=== PATIENT | female | born 1940 | race Caucasian/White ===

== ENCOUNTER 2023-10-06 15:37 | Emergency (ER) | payer MEDICARE, BC, SELFPAY ==
[2023-10-06 15:39] VITALS: BP 148/61
[2023-10-06 15:53] LABS: % Eosinophils 2.6 % (0-6); % Immature Granulocytes 0.4 % (0-0.5); % Monocytes 8.8 % (1.7-9.3); % Neutrophils 66.2 % (42.2-75.2); Absolute Basophils 0.1 10^3/uL (0-0.2); Absolute Eosinophils 0.2 10^3/uL (0-0.7); Absolute Lymphocytes 1.5 10^3/uL (1.2-3.4); Absolute Monocytes 0.6 10^3/uL (0.1-0.6); Absolute Neutrophils 4.6 10^3/uL (1.4-6.5); Hematocrit 33.1 % (37.0-47.0); Mean Corp Hgb Conc. 33.2 g/dL (33.0-37.0); Mean Corpuscular Hgb 28.5 pg (27.0-31.0); Mean Corpuscular Volume 85.8 fL (81.0-99.0); Mean Platelet Volume 9.7 fL (7.4-10.4); Nucleated Red Blood Cells % 0 %; Platelet Count 267 10^3/uL (130-400); Red Blood Cell Count 3.86 10^6/uL (4.20-5.40); Red Cell Dist. Width 13.2 % (11.5-14.5)
[2023-10-06 16:10] LABS: ALT (SGPT) 16 U/L (0-35); AST (SGOT) 25 U/L (14-36); Albumin 3.9 g/dl (3.5-5.0); Alkaline Phosphatase 74 U/L (38-126); Blood Urea Nitrogen 63 mg/dl (7-17); Carbon Dioxide 25 mmol/L (22-30); Chloride 104 mmol/L (98-107); Glucose 133 mg/dl (70-99); Potassium 4.5 mmol/L (3.5-5.1); Sodium 137 mmol/L (135-145); Total Bilirubin 0.5 mg/dl (0.2-1.3); Total Protein 6.2 g/dl (6.3-8.2); eGFR 37.33
[2023-10-06 17:37] VITALS: BMI 41.5
--- NOTE | 2023-10-06 18:00 | ED.GENMED ---
History of Present Illness
General
Chief Complaint: Change in Mental Status
Source: day care assistant (Daughter)
Time Seen by Provider: 10/06/23 17:38
History of Present Illness
History of Present Illness:
83-year-old female brought to the emergency room for evaluation of increased lethargy, lower extremity edema and left leg redness. Patient has not had a fever. She does have dementia. Daughter states the patient normally gets up in the morning
and is going all day and never takes a nap. Over the past several days she has been falling asleep sitting in a chair. She seems little more confused than baseline. No significant change in medications.
Past History
Past History
ED Past Medical History: Negative Arrthythmia
ED Past Surgical History: Orthopedic (Right hip replacement)
Social History
Tobacco: Non-smoker
Alcohol: Occasional
Drug: None
Living: with family
Employment: Retired
Family History
Family History: Hypertension
Phy Exam
Physical Exam
Physical Exam:
General: Awake, Alert, Oriented X2. No acute distress.
Vitals: unremarkable
Head: Atraumatic
Eyes: Pupils equal, EOMI
Throat: Airway intact, no exudates
Neck: Trachea midline
Lungs: Clear and equal b/l
Heart: Regular rate, no murmurs
Abd: Soft, Nontender, No pulsatile mass
Neuro: Nonfocal
Skin: Warm, dry, no rash
Extremities: pulses equal b/l, no edema
Course
Orders/Labs/Results
Orders:
Orders
10/06/23 15:48
CMP [Comprehensive Metabolic Panel] Urgent
Complete Blood Count/With Diff Urgent
10/06/23 17:58
CT Head W/o Iv Contrast Urgent
Comment:
Reason For Exam: altered mental status
CR Chest - 2 Views Urgent
Comment:
Reason For Exam: altered mental status
10/06/23 18:00
Add On- LAB Urgent
Tests Added?: pro-bnp, troponin
10/06/23 18:27
NT-proBNP Urgent
Troponin I Urgent
Urinalysis Reflex To Culture Urgent
Date Specimen was Collected: 10/06/23
Time Specimen was Collected: 18:24
10/06/23 19:30
Cephalexin Monohydrate [Keflex] 500 mg PO NOW STA
Abnormal Lab Results
10/06/23
15:48
RBC 3.86 L 10^6/uL
(4.20-5.40)
Hgb 11.0 L g/dL
(12.0-16.0)
Hct 33.1 L %
(37.0-47.0)
BUN 63 H mg/dl
(7-17)
Creatinine 1.4 H mg/dL
(0.6-1.0)
Glucose 133 H mg/dl
(70-99)
Total Protein 6.2 L g/dl
(6.3-8.2)
10/06/23 15:48
10/06/23 15:48
Vital Signs
Initial and Last Documented VS:
Initial Vital Signs
Temp Pulse Resp BP Pulse Ox
99.0 F 75 18 148/61 97
10/06/23 15:39 10/06/23 15:39 10/06/23 15:39 10/06/23 15:39 10/06/23 15:39
Last Documented Vital Signs
Temp Pulse Resp BP Pulse Ox
99.0 F 75 18 148/61 97
10/06/23 15:39 10/06/23 15:39 10/06/23 15:39 10/06/23 15:39 10/06/23 15:39
MDM/Problems Addressed
Differential Diagnosis Includes:
Cellulitis, urinary tract infection, subdural, medication effect
MDM/Problems Addressed:
Patient has increased lethargy per family. Here she is currently awake and interactive. Neurologic exam is nonfocal. CT shows no acute abnormalities. Labs show mild elevation of BUN and creatinine. Daughter does not know the exact numbers but
does know she has had abnormal kidney test in the past. Urinalysis totally normal. Chest x-ray shows no acute infiltrates. Overall patient may have a mild cellulitis of the left lower extremity. She does have significant venous stasis however so
this may be chronic. However we will cover with antibiotics. Given she is afebrile and hemodynamically stable I do not believe hospitalization is in her best interest for treatment with dementia as she is likely to become more confused. Family
comfortable with this plan. They will return if she is doing worse
Chronic conditions affecting care: DM and Other (Dementia, chronic venous stasis)
*Radiology
Radiology exam reviewed: radiology read reviewed
*Pulse Oximetry
Patient hypoxic: no
*Critical Care Note
Total Time (30-74mins, 75-104mins- exclusive of procedures): Not Applicable
Patient Management
Social determinants of health affecting care: Living situation
Discussion with other providers: Hospitalist
ED Attending Note
-
Portions of this chart may have been created with voice recognition software.� Occasional wrong word or��sound alike� substitutions may have occurred due to the inherent limitations of voice recognition software.
Discharge Plan
Departure
Patient Disposition: Home (Routine Discharge)
Date of Disposition: 10/06/23
Time of Disposition: 19:30
Patient with high blood pressure during this ER visit?: Yes
Condition: Good
Discharge Problem:
Cellulitis of left lower extremity, Venous stasis
Instructions: Swelling, Cellulitis (Skin Infection), Adult ED
Prescriptions:
New
cephalexin 500 mg capsule
500 mg PO BID 7 Days Qty: 14 0RF
No Action
carvedilol 6.25 MG tablet
12.5 mg PO DAILY
glipizide 10 MG tablet extended release 24hr
10 mg PO BID
lisinopril 40 MG tablet
40 mg PO DAILY
carvedilol 6.25 mg tablet
6.25 mg PO QPM
amlodipine 5 mg tablet
5 mg PO HS
acetaminophen 500 mg Tablet
1,000 mg PO Q6H PRN (Reason: mild pain)
naproxen sodium [Aleve] 220 mg Tablet
220 mg PO Q12H PRN (Reason: mild pain)
omeprazole 20 mg capsule,delayed release(DR/EC)
20 mg PO HS
hydrochlorothiazide 25 mg tablet
25 mg PO DAILY
furosemide 20 mg tablet
20 mg PO MOTH
Januvia 50 mg tablet
50 mg PO DAILY
Curcumin
1 tab PO BID
Referrals:
UNKNOWN - PT DOES,NOT KNOW [Unknown Provider] -
Activity Restrictions/Additional Instructions:
I believe there is a mild cellulitis in the left leg. This will be treated with an oral antibiotic, Keflex, for one week. Also use beatriz wraps to provide some compression. I would also give her the lasix for two or three days in a row then return
to normal dosing.
Interventions
Interventions:
*Risk Screen - Suicide Last Done: 10/06/23 17:38
*General Assessment Last Done: 10/06/23 17:38
*Neglect/Abuse Screening Last Done: 10/06/23 17:38
ED- Fall Risk Assessment Last Done: 10/06/23 18:32
*ED COVID-19 Vaccine History Last Done: 10/06/23 17:38
*Nursing Disposition Last Done: 10/06/23 20:06
ED- Neurological Assessment Last Done: 10/06/23 18:32
ED- Cardiac Assessment Last Done: 10/06/23 18:55
Discharge Date and Time
Discharge Date/Time: 10/06/23 20:06
Print Language: ESTONIAN
[2023-10-06 18:40] LABS: Urine Albumin Negative (Neg - Trace); Urine Bilirubin Negative (Negative); Urine Character Clear (Clear); Urine Color Yellow; Urine Glucose Negative (Negative); Urine Ketone Negative (Negative); Urine Leukocyte Negative (Negative); Urine Nitrite Negative (Negative); Urine Occult Blood Negative (Negative); Urine Urobilinogen Negative (Neg - 1+)
[2023-10-06 19:01] LABS: NT-proBNP 119 pg/ml; Troponin I < 0.012 ng/ml
[2023-10-06] MEDS: KEFLEX 500 MG PO (19:38)
== END 2023-10-06 20:06 | disposition home or self-care (01) ==
LOC: EMR 15:37
PROVIDERS: Emergency Medicine; EMERGENCY PHYSICIAN Emergency Medicine; FAMILY PHYSICIAN Internal Medicine Geriatric Medicine
DX: L03.116 Cellulitis of left lower limb (principal); R41.0 Disorientation, unspecified; R53.83 Other fatigue; I87.8 Other specified disorders of veins; R03.0 Elevated blood-pressure reading, without diagnosis of hypertension; F03.90 Unspecified dementia, unspecified severity, without behavioral disturbance, psychotic disturbance, mood disturbance, and anxiety; E11.9 Type 2 diabetes mellitus without complications; Z96.641 Presence of right artificial hip joint
CPT/HCPCS: 99284; 70450; 71046; 80053; 81003; 83880; 84484; 85025

== ENCOUNTER 2023-10-08 03:38 | Inpatient (IN) | payer MEDICARE, BC, SELFPAY ==
[2023-10-07 21:35] VITALS: BP 184/88
[2023-10-07 23:52] VITALS: BP 167/82
[2023-10-08] VITALS (9 sets, daily range): BP systolic 122–171; BP diastolic 49–74; PULSE 65–66; O2SAT 95; BMI 40.2
--- NOTE | 2023-10-08 00:57 | ED.GENMED ---
History of Present Illness
General
Chief Complaint: Skin Problem
Source: family (Grandson)
Exam Limitations: dementia
Time Seen by Provider: 10/07/23 23:51
History of Present Illness
History of Present Illness:
This is a 83 year old female that comes in with c/o increased leg swelling and redness. Grandson states that they were here yesterday as she has swelling of both lower legs. States that she was given Lasix and an antibiotic but this is not helping.
states that her legs are more swollen and the redness is worse. State that she also has a large blister that was not there. States that this has been going on since . Denies any fever, chest pain, SOB, abd pain, nausea, vomiting, diarrhea,
headache, dizziness.
Past History
Past History
ED Past Medical History: HTN, IDDM and Other (Dementia, ); Negative Arrthythmia
ED Past Surgical History: Cholecystectomy, (X 3), Orthopedic (Right and left hip replacement, Left and right knee replacement,) and Tonsilectomy
Social History
Tobacco: Non-smoker
Alcohol: None
Drug: None
Personal:
Living: with family
Employment: Retired
Family History
Family History: Hypertension
Review of Systems
Review of Systems
Unable to obtain full review of systems at this time due to: dementia
Other source history: family
All Other Systems: ROS reviewed and negative except as documented in HPI and ROS
Constitutional: Reports no symptoms; Denies fever or chills
EENT: Reports no symptoms
Respiratory: Reports no symptoms; Denies cough or trouble breathing
Cardiac: Reports no symptoms; Denies chest pain
ABD/GI: Reports no symptoms; Denies abdominal pain, nausea, vomiting or diarrhea
: Reports no symptoms
Musculoskeletal: Reports edema (lower legs with redness )
Skin: Reports no symptoms
Neurological: Reports no symptoms; Denies dizzy or headache
Psychiatric: Reports no symptoms
Phy Exam
General Physical Exam
General Presentation: no apparent distress
General age: appears stated age
General Skin: warm and dry
General Habitus: elderly
General Mental: usual mental status
General Hydration: appears well hydrated
ENT Exam
ENT Exam: TM's normal, pharynx normal and neck supple
Eye Exam
Eye Exam: EOMI
Cardiovascular Exam
Cardiovascular Exam: regular rate/rhythm and normal peripheral pulses
Pulmonary Exam
Pulmonary Exam: lungs clear, no respiratory distress, no rales, chest non tender, no crackles, no rhonchi, no wheezing and no cough
Gastrointestinal Exam
Gastrointestinal Exam: normal bowel sounds, non tender, soft, no organomegaly, no pulsatile mass and non distended
Musculoskeletal Exam
Musculoskeletal Exam: full ROM and edema (Bilateral leg edema )
Skin Exam
Skin Exam: normal color, warm/dry, no petechia and redness (Bilateral leg edema with redness L>R with large blistered area on the proximal left lower leg)
Psychiatric Exam
Psychiatric Exam: normal mood/affect
Course
Orders/Labs/Results
Orders:
Orders
10/08/23 01:09
Piperacillin/Tazo 3.375 Gram [Zosyn] 3.375 gram in 50 ml IV NOW
10/08/23 01:12
Complete Blood Count/With Diff Urgent
Comprehensive Metabolic Panel Urgent
Lactic Acid Urgent
Blood Culture Q30M
BALDEV Source: Blood/Venous
Specimen Description:
10/08/23 01:22
Blood Culture Q30M
BALDEV Source: Blood/Venous
Specimen Description:
10/08/23 02:10
US Legs, Bilateral [US Periph Venous LOWER Ext Josué] Urgent
Comment:
Reason For Exam: b/l LE redness and swelling, new
10/08/23 02:32
Admit/Transfer Patient As Directed
Co-Sign Provider:
Level of Care: Inpatient admission
Assign to:: Medical/Surgical
Physician / Group: Baylee Quezada
Diagnosis: cellulitis
Reason for Hospitalization: cellulitis
Expected length of stay greater than two midnights?: Yes
ELOS- Estimated Length of Stay in days: 2
I certify the patient meets the requirements for IP care: Yes
10/08/23 02:33
Code Status As Directed
Resuscitation Status: Full Code
Abnormal Lab Results
10/08/23
01:12
RBC 3.72 L 10^6/uL
(4.20-5.40)
Hgb 10.7 L g/dL
(12.0-16.0)
Hct 31.6 L %
(37.0-47.0)
BUN 48 H mg/dl
(7-17)
Creatinine 1.2 H mg/dL
(0.6-1.0)
Glucose 116 H mg/dl
(70-99)
Total Protein 6.1 L g/dl
(6.3-8.2)
10/08/23 01:12
10/08/23 01:12
H/H low. BUN/Cr improved from prior labs, Chronic renal insufficience, Glucose nonfasting. Total protein slightly low. Lactic acid normal at 0.7
Vital Signs
Initial and Last Documented VS:
Initial Vital Signs
Temp Pulse Resp BP Pulse Ox
98.6 F 85 16 184/88 96
10/07/23 21:35 10/07/23 21:35 10/07/23 21:35 10/07/23 21:35 10/07/23 21:35
Last Documented Vital Signs
Temp Pulse Resp BP Pulse Ox
98.6 F 81 18 148/51 96
10/07/23 21:35 10/07/23 23:52 10/07/23 23:52 10/08/23 01:24 10/07/23 23:52
MDM/Problems Addressed
Differential Diagnosis Includes:
Cellulitis, Dependent edema
MDM/Problems Addressed:
This is a 83 year old female that is brought in by family with c/o bilateral leg swelling and redness. States that she as here yesterday and they feel that her legs are getting worse. States that she has a large blister on the left leg.
Will check labs and admit patient with cellulitis. Hospitalist notified. Back into see patient and family. Explained that she will be admitted and started on antibiotics. Will also diureses patient to decrease the swelling.
Chronic conditions affecting care: DM
Acute Exacerbation and/or Progression of Chronic Illness: DM
*Pulse Oximetry
Patient hypoxic: no
*EKG
Interpreted by ED Provider?: NA
Rate: EKG- N/A
*Relish Blender Interpretation
Rate: Relish Blender- N/A
*Critical Care Note
Total Time (30-74mins, 75-104mins- exclusive of procedures): Not Applicable
ED Attending Note
-
Portions of this chart may have been created with voice recognition software.� Occasional wrong word or��sound alike� substitutions may have occurred due to the inherent limitations of voice recognition software.
Discharge Plan
Departure
Patient Disposition: Admit
Date of Disposition: 10/08/23
Time of Disposition: 01:10
Admit to: Med/Surg
Presentation/result/management discussed w/ accepting MD/DO: Hospitalist
Patient with high blood pressure during this ER visit?: Yes
Condition: Good
Covid-19: Not Applicable
Discharge Problem:
Bilateral edema of lower extremity, Cellulitis of left lower extremity
Prescriptions:
No Action
carvedilol 6.25 MG tablet
12.5 mg PO DAILY
glipizide 10 MG tablet extended release 24hr
10 mg PO BID
lisinopril 40 MG tablet
40 mg PO DAILY
carvedilol 6.25 mg tablet
6.25 mg PO QPM
amlodipine 5 mg tablet
5 mg PO HS
acetaminophen 500 mg Tablet
1,000 mg PO Q6H PRN (Reason: mild pain)
naproxen sodium [Aleve] 220 mg Tablet
220 mg PO Q12H PRN (Reason: mild pain)
omeprazole 20 mg capsule,delayed release(DR/EC)
20 mg PO HS
hydrochlorothiazide 25 mg tablet
25 mg PO DAILY
furosemide 20 mg tablet
20 mg PO MOTH
Januvia 50 mg tablet
50 mg PO DAILY
Curcumin
1 tab PO BID
cephalexin 500 mg capsule
500 mg PO BID 7 Days Qty: 14 0RF
Referrals:
UNKNOWN - PT DOES,NOT KNOW [Family Provider] -
Interventions
Interventions:
*Risk Screen - Suicide Last Done: 10/07/23 21:35
*General Assessment Last Done: 10/08/23 01:45
*Neglect/Abuse Screening Last Done: 10/07/23 21:35
*ED COVID-19 Vaccine History Last Done: 10/08/23 01:45
ED-Skin Assessment Last Done: 10/08/23 00:37
Discharge Date and Time
Print Language: BELARUSIAN
[2023-10-08 01:37] LABS: % Eosinophils 2.9 % (0-6); % Immature Granulocytes 0.4 % (0-0.5); % Monocytes 7.9 % (1.7-9.3); % Neutrophils 66.8 % (42.2-75.2); Absolute Basophils 0.1 10^3/uL (0-0.2); Absolute Eosinophils 0.2 10^3/uL (0-0.7); Absolute Lymphocytes 1.4 10^3/uL (1.2-3.4); Absolute Monocytes 0.5 10^3/uL (0.1-0.6); Absolute Neutrophils 4.6 10^3/uL (1.4-6.5); Hematocrit 31.6 % (37.0-47.0); Hemoglobin 10.7 g/dL (12.0-16.0); Mean Corp Hgb Conc. 33.9 g/dL (33.0-37.0); Mean Corpuscular Hgb 28.8 pg (27.0-31.0); Mean Corpuscular Volume 84.9 fL (81.0-99.0); Mean Platelet Volume 9.6 fL (7.4-10.4); Nucleated Red Blood Cells % 0 %; Platelet Count 255 10^3/uL (130-400); Red Blood Cell Count 3.72 10^6/uL (4.20-5.40); White Blood Cell Count 6.9 10^3/uL (4.8-10.8)
[2023-10-08] MEDS: ZOSYN 50 IV (01:41)
[2023-10-08 01:55] LABS: ALT (SGPT) 20 U/L (0-35); AST (SGOT) 25 U/L (14-36); Albumin 3.7 g/dl (3.5-5.0); Alkaline Phosphatase 78 U/L (38-126); Blood Urea Nitrogen 48 mg/dl (7-17); Calcium 9.9 mg/dl (8.4-10.2); Carbon Dioxide 28 mmol/L (22-30); Chloride 103 mmol/L (98-107); Glucose 116 mg/dl (70-99); Lactic Acid 0.7 mmol/L (0.7-2.0); Potassium 4.1 mmol/L (3.5-5.1); Sodium 138 mmol/L (135-145); Total Bilirubin 0.6 mg/dl (0.2-1.3); Total Protein 6.1 g/dl (6.3-8.2); eGFR 44.91
--- NOTE | 2023-10-08 01:58 | HPS.HSE ---
Family Physician
-
Family Physician: NOT KNOW UNKNOWN - PT DOES
Chief Complaint
-
leg swelling and redness
History of Present Illness
Ms. Holly Villarreal is a 83 yo woman with hx dementia, essential HTN, NIDDM, ER evaluation yesterday for lower extremity swelling and redness (discharged on Keflex) brought back to the ER today with worsening.
Patient confused and unable to provide history, stating she is at school. I called grandson. He reports patient's legs are always mildly swollen but not to this extent. His mother brought patient to ER yesterday. Him and his dad noticed
worsening today and so brought her back. The erythema and blister are new.
Patient denies pain. Denies chest pain or shortness of breath. She has not had fevers. She is chronically on lasix only on Mondays and .
Medical History
Past Medical History
Past Medical History: Reports HTN and NIDDM
Past Surgical History: Reports Cholecystectomy, Gynocological ( x 3), Orthopedic (right and left hip replacement, right and left knee replacement ) and Tonsilectomy
Social History
Tobacco: Non-smoker
Alcohol: None
Family History
Family History: Not pertinent
Allergies / Home Medications
Allergies reflects when Allergies were last updated in [facility].
Home Medications with original date entered in [facility]
Allergy/Medication List:
Allergies
Allergy/AdvReac Type Severity Reaction Status Date / Time
Opioids - Morphine Analogues Allergy Mild Nausea / Verified 10/07/23 21:35
Vomiting
Home Medications
carvedilol 6.25 mg tablet 12.5 mg PO DAILY 07/22/19
glipizide 10 mg tablet, extended release 24 hr 10 mg PO BID 07/22/19
lisinopril 40 mg tablet 40 mg PO DAILY 07/22/19
Curcumin 1 tab PO BID 10/06/23
acetaminophen 500 mg tablet 1,000 mg PO Q6H PRN mild pain 10/06/23
amlodipine 5 mg tablet 5 mg PO HS 10/06/23
carvedilol 6.25 mg tablet 6.25 mg PO QPM 10/06/23
cephalexin 500 mg capsule 500 mg PO BID 7 days #14 caps 10/06/23
furosemide 20 mg tablet 20 mg PO MOTH 10/06/23
hydrochlorothiazide 25 mg tablet 25 mg PO DAILY 10/06/23
naproxen sodium 220 mg tablet (Aleve) 220 mg PO Q12H PRN mild pain 10/06/23
omeprazole 20 mg capsule,delayed release 20 mg PO HS 10/06/23
sitagliptin phosphate 50 mg tablet (Januvia) 50 mg PO DAILY 10/06/23
Review of Systems
-
Unable to obtain full review of systems at this time due to: Dementia
Physical Exam
Vital Signs
Vital Signs
Temp Pulse Resp BP Pulse Ox
98.6 F 81 18 148/51 96
10/07/23 21:35 10/07/23 23:52 10/07/23 23:52 10/08/23 01:24 10/07/23 23:52
Physical Exam
General: No Apparent Distress and Comfortable
HEENT: PERRLA
Respiratory: Clear; No Wheezes
Cardiac: S1/S2 and Regular Rhythm
GI: Soft and Non Tender
Musculoskeletal: Other (b/l LE swelling and redness with left > right )
Skin: Warm, Dry and Rash (skin blister left lower extremity )
Neuro: Awake and Alert; No Oriented
Psych: Apparent Dementia
Laboratory Results
-
10/08/23 01:12
10/08/23 01:12
Laboratory Results
Lactic Acid 0.7 mmol/L (0.7-2.0) 10/08/23 01:12
Total Bilirubin 0.6 mg/dl (0.2-1.3) 10/08/23 01:12
AST 25 U/L (14-36) 10/08/23 01:12
ALT 20 U/L (0-35) 10/08/23 01:12
Alkaline Phosphatase 78 U/L (38-126) 10/08/23 01:12
Data Reviewed
-
Diagnostic Radiology: Report Reviewed by me
Lab Data: Labs Reviewed by me
Impression/Plan
-
Ms. Holly Villarreal is a 83 yo woman with hx dementia, essential HTN, NIDDM, ER evaluation yesterday for lower extremity swelling and redness (discharged on Keflex) brought back to the ER today with worsening.
Triage VS: T 98.6, P 85, RR 16, BP 184/88, SpO2 96%
LABS: WBC 6.9, Hg 10.7, PLT 255, Na 138, K+ 4.1, CO2 28, BUN 48, Cr 1.2, liver enzymes WNL,
B/l lower extremity cellulitis L>R
-patient did not improve on oral Keflex (prescribed day prior to admission), will admit for IV therapy
-IV Cefazolin (s/p Zosyn in ER)
-F/U LE B/l US
-increase [employer] lasix from MOTH to daily dosing
-PT/OT
NIDDM
-patient is on Glipizide 10mg PO BID and Januvia 50mg PO QD at home
-continue [employer] Januvia
-decrease Glipizide dosing to 2.5mg PO QD for now and adjust as needed
-ISS low
-F/U HgA1c
-diabetic diet
Essential Hypertension
-hold [employer] HCTZ with increase in lasix dosing to daily
-[employer] Lisinopril
-S[employer] amlodipine
-SAP [employer] Coreg
Baseline Dementia
COLTON versus CKD III
-creatinine 1.2, was 1.4 yesterday
GERD
-S[employer] PPI
DVT PPx lovenox subQ
FULL CODE - discussed with grandson who will have further discussion with his mother (patient's daughter)
--- NOTE | 2023-10-08 04:37 | PTCARENOTE ---
pt arrived from ed, pulled over, pt only oriented to self, bed alarm for safety, VSS. see MAR and assessment for further details. call lao within reach.
[2023-10-08 07:17] LABS: Blood Urea Nitrogen 47 mg/dl (7-17); Calcium 9.9 mg/dl (8.4-10.2); Carbon Dioxide 29 mmol/L (22-30); Chloride 104 mmol/L (98-107); Estimated Creatinine Clearance 44 ml/min; Glucose 85 mg/dl (70-99); Magnesium 1.7 mg/dl (1.6-2.3); Potassium 4.1 mmol/L (3.5-5.1); Sodium 140 mmol/L (135-145); eGFR 44.91
[2023-10-08 07:43] LABS: Glucose - Point of Care 101 mg/dl (70-99)
[2023-10-08] MEDS: NOVOLOG FLEXPEN-LOW RESISTANCE SC ×2 (08:04→16:58)
[2023-10-08] MEDS: GLUCOTROL XL (EXTENDED RELEASE) 2.5 MG PO (08:07)
[2023-10-08] MEDS: ZESTRIL 40 MG PO (08:07)
[2023-10-08] MEDS: JANUVIA 50 MG PO (08:07)
[2023-10-08] MEDS: LASIX 20 MG PO (08:08)
[2023-10-08] MEDS: COREG 12.5 MG PO (08:08)
[2023-10-08] MEDS: ANCEF 5 IV ×3 (08:09→23:29)
[2023-10-08] MEDS: DESENEX/MITRAZOL/ZEASORB 1 APPLIC TOPICAL ×2 (08:11→21:19)
[2023-10-08 08:52] LABS: Glycohemoglobin (HgbA1c) 6.9 % (4.0-5.6)
--- NOTE | 2023-10-08 10:16 | W.PN.HOSP.TC ---
Today's Communication/Plan
-
IV antibiotics per
Wound care.
Monitor blood pressure trend on current medication regimen.
Follow BMP on increased dose of Lasix.
Hold HCTZ
Physical therapy assessment.
Discharge planing
Assessment / Plan
Assessment / Plan
Impression:
Bilateral lower extremity cellulitis left greater than right.
? COLTON versus CKD
Conditions prior to admission:
Type 2 diabetes [id number]
Essential hypertension
CKD?
GERD
Dementia without behavioral disturbances.
Plan
B/l lower extremity cellulitis L>R
Complicated with stasis dermatitis
Left lower extremity blister clear serosanguineous fluid
No systemic symptoms
-patient did not improve on oral Keflex (prescribed day prior to admission), will admit for IV therapy
-IV Cefazolin (s/p Zosyn in ER)
-Wound care
-F/U LE B/l US
-increase [employer] lasix from MOTH to daily dosing
-PT/OT
NIDDM
-patient is on Glipizide 10mg PO BID and Januvia 50mg PO QD at home
-continue [employer] Januvia
-decrease Glipizide dosing to 2.5mg PO QD for now and adjust as needed
-ISS low
-Hemoglobin A1c 6.9
-diabetic diet
Essential Hypertension
-hold [employer] HCTZ with increase in lasix dosing to daily
-[employer] Lisinopril
-[employer] amlodipine
-[employer] Coreg
Baseline Dementia
COLTON versus CKD III
-creatinine 1.2, was 1.4 yesterday
GERD
-[employer] PPI
DVT PPx lovenox subQ
FULL CODE - discussed with grandson who will have further discussion with his mother (patient's daughter)
Anticipated Discharge: 24 - 48 hours
Subjective/Interval History
-
Date of Service: October 08, 2023
Objective Data
-
Labs:
Laboratory Results
10/08/23 10/08/23
01:12 06:29
WBC 6.9
Hgb 10.7 L
Hct 31.6 L
Plt Count 255
Sodium 138 140
Potassium 4.1 4.1
Chloride 103 104
Carbon Dioxide 28 29
BUN 48 H 47 H
Creatinine 1.2 H 1.2 H
Glucose 116 H 85
Calcium 9.9 9.9
Total Bilirubin 0.6
AST 25
ALT 20
Alkaline Phosphatase 78
Vital Signs:
Vital Signs
Temp Pulse Resp BP Pulse Ox
98 F 82 16 171/74 99
10/08/23 07:28 10/08/23 07:28 10/08/23 07:28 10/08/23 07:28 10/08/23 07:28
Physical Exam
-
General: Well Developed and No Apparent Distress
HEENT: Normocephalic, Atraumatic and Moist Mucous Membranes
Respiratory: Clear to Auscultation
Cardiac: Regular Rhythm and S1/S2; Negative Murmur, Rub or Gallop
GI: Soft, Nontender, Nondistended and Normal Bowel Sounds; Negative Organomegaly
Rectal: Deferred by Provider
Musculoskeletal: No Clubbing, No Cyanosis and No Edema
Skin: Negative Rash
Neuro: Awake, Alert, Oriented and Nonfocal/Grossly Intact
[2023-10-08 12:15] LABS: Glucose - Point of Care 231 mg/dl (70-99)
[2023-10-08] MEDS: NOVOLOG FLEXPEN-LOW RESISTANCE 2 UNITS SC (12:36)
--- NOTE | 2023-10-08 13:27 | WOUNDNOTE ---
[facility] RN note: Patient admitted with bilateral LE cellulitis
See H&P for complete history.
PMH: Type 2 DM, HTN, GERD, Demenita. Pleasant, oriented to self only.
Wound Location and type/assessment: Patient admitted with blisters to left LE. +2-3 edema bilaterally, with faint pedal pulses. Bilateral legs are red with venous stasis changes. Buttocks, sacrum and heels intact. Some MASD noted around groin.
Pressure redistribution devices in place: Versa Care Air, air cushion to chair
Plan: Protect blisters and surrounding skin if blisters open. Adaptic and ABD applied to blistered areas. Compression with CHETAN applied bilaterally. RN updated, orders confirmed with hospitalist. Discharge and care plan updated. Will continue to
follow as needed.
[2023-10-08 16:41] LABS: Glucose - Point of Care 142 mg/dl (70-99)
--- NOTE | 2023-10-08 16:43 | CM ---
Initial assessment completed with patient's daughter/primary contact, Rosangela Wood (she is currently out of town)
Patient's other daughter, Diamond Escamilla, phone # [phone]; also has Power of Cardiac Cath Lab Radiology Technologist. She will be available if unable to reach Rosangela Wood
Patient has Dementia
Pharmacy verified: [facility], [address]
Per daughter, patient lives with her/son-in-law/grandson/ and 's 102 yr old father in a 2 story home; 2 steps to enter; 13 steps to patient's 2nd floor bathroom and bedroom
PLOF: daughter reported that patient has a caregiver every day from 9-3 Thursday thru Thursday; is able to dress and toilet self; incontinent sometimes. Patient refuses to use a walker with ambulation; refuses to hold on to railing on stairs; daughter
reported that she crawls up the stairs; family/caregiver only able to get her in the shower once a week (patient does not like shower); no longer driving
SNF utilization history; not recent; [facility]
DME: has a glucometer but daughter does not check blood sugars; and a walker but patient refuse to use it
Transportation: son-in-law and grandson will transport if she patient is stable to go home
Plan: disposition pending PT/OT recommendations after they speak with patient's daughter about home environment
[2023-10-08] MEDS: COREG 6.25 MG PO (17:51)
[2023-10-08] MEDS: LOVENOX 40 MG SC (17:52)
[2023-10-08] MEDS: NORVASC 5 MG PO (21:18)
[2023-10-08 21:19] LABS: Glucose - Point of Care 206 mg/dl (70-99)
[2023-10-08] MEDS: PROTONIX 40 MG PO (21:19)
[2023-10-09 06:00] VITALS: BMI 40.2
[2023-10-09 07:03] LABS: % Immature Granulocytes 0.5 % (0-0.5); % Lymphocytes 28.8 % (20.5-51.1); % Monocytes 11.7 % (1.7-9.3); Absolute Basophils 0.1 10^3/uL (0-0.2); Absolute Eosinophils 0.2 10^3/uL (0-0.7); Absolute Lymphocytes 1.7 10^3/uL (1.2-3.4); Absolute Monocytes 0.7 10^3/uL (0.1-0.6); Absolute Neutrophils 3.2 10^3/uL (1.4-6.5); Hematocrit 32.7 % (37.0-47.0); Hemoglobin 10.7 g/dL (12.0-16.0); Mean Corp Hgb Conc. 32.7 g/dL (33.0-37.0); Mean Corpuscular Volume 88.6 fL (81.0-99.0); Mean Platelet Volume 10.1 fL (7.4-10.4); Nucleated Red Blood Cells % 0 %; Platelet Count 244 10^3/uL (130-400); Red Blood Cell Count 3.69 10^6/uL (4.20-5.40); Red Cell Dist. Width 13.1 % (11.5-14.5)
[2023-10-09 07:33] LABS: Blood Urea Nitrogen 39 mg/dl (7-17); Calcium 9.7 mg/dl (8.4-10.2); Carbon Dioxide 31 mmol/L (22-30); Chloride 103 mmol/L (98-107); Estimated Creatinine Clearance 48 ml/min; Glucose 122 mg/dl (70-99); Potassium 4.5 mmol/L (3.5-5.1); Sodium 139 mmol/L (135-145); eGFR 49.86
[2023-10-09 07:43] LABS: Glucose - Point of Care 125 mg/dl (70-99)
[2023-10-09 07:45] VITALS: BP 141/58
[2023-10-09] MEDS: NOVOLOG FLEXPEN-LOW RESISTANCE SC (08:41)
[2023-10-09] MEDS: JANUVIA 50 MG PO (08:42)
[2023-10-09] MEDS: GLUCOTROL XL (EXTENDED RELEASE) 2.5 MG PO (08:42)
[2023-10-09] MEDS: ZESTRIL 40 MG PO (08:43)
[2023-10-09] MEDS: LASIX 20 MG PO (08:43)
[2023-10-09] MEDS: ANCEF 5 IV ×2 (08:43→15:17)
[2023-10-09] MEDS: COREG 12.5 MG PO (08:43)
[2023-10-09] MEDS: DESENEX/MITRAZOL/ZEASORB 1 APPLIC TOPICAL (08:53)
[2023-10-09 12:33] LABS: Glucose - Point of Care 264 mg/dl (70-99)
[2023-10-09] MEDS: NOVOLOG FLEXPEN-LOW RESISTANCE 3 UNITS SC (12:35)
--- NOTE | 2023-10-09 13:30 | W.DS.TRANS ---
DC Summary - [employer]
-
Discharge Instructions:
Discharge Diagnosis/Procedures Impression:
Bilateral lower extremity cellulitis left
greater than right.
? COLTON versus CKD
Conditions prior to admission:
Type 2 diabetes [id number]
Essential hypertension
CKD?
GERD
Dementia without behavioral disturbances.
Diet Diabetic, Carb Controlled
Instructions:
Stand-Alone Forms:
Changes to Home Medications: Yes
Discharge Medications:
DC Medications w/original date entered in [facility]
carvedilol 6.25 mg tablet 12.5 mg PO DAILY Heart Disease/Condition 07/22/19
glipizide 10 mg tablet, extended release 24 hr 10 mg PO BID Diabetes 07/22/19
lisinopril 40 mg tablet 40 mg PO DAILY Blood Pressure 07/22/19
Curcumin 1 tab PO BID Supplement 10/06/23
acetaminophen 500 mg tablet 1,000 mg PO Q6H PRN mild pain 10/06/23
amlodipine 5 mg tablet 5 mg PO HS Blood Pressure 10/06/23
carvedilol 6.25 mg tablet 6.25 mg PO QPM Heart Disease/Condition 10/06/23
furosemide 20 mg tablet 20 mg PO MOTH Fluid Retention/Swelling 10/06/23
omeprazole 20 mg capsule,delayed release 20 mg PO HS Gastrointestinal Issue 10/06/23
sitagliptin phosphate 50 mg tablet (Januvia) 50 mg PO DAILY Diabetes 10/06/23
cephalexin 500 mg capsule 500 mg PO BID Infection 10/09/23
Home Medication Changes
Stop HCTZ, Aleve
Pending Results: No
--- NOTE | 2023-10-09 15:13 | CM ---
Reviewed chart, RN advised that grandson wanted to speak with CM. Placed a call to patient's Grandson who stated that he has no concerns. Reviewed IMM. Placed on chart. Patient's Grandson stated that he will have his aunt pick her up.
Plan: Case management will continue to follow and assist with discharge planning. Home with cg.
[2023-10-09 15:24] VITALS: BP 167/66
[2023-10-09 17:21] LABS: Glucose - Point of Care 159 mg/dl (70-99)
[2023-10-09] MEDS: LOVENOX 40 MG SC (17:32)
[2023-10-09] MEDS: NOVOLOG FLEXPEN-LOW RESISTANCE 300 UNITS SC (17:33)
[2023-10-09] MEDS: COREG 6.25 MG PO (17:33)
== END 2023-10-09 18:21 | disposition home or self-care (01) | DRG 603 ==
LOC: 3 WEST ACU 03:38
PROVIDERS: Clinical Nurse Specialist Family Health; ADMITTING PHYSICIAN Student in an Organized Health Care Education/Training Program; ATTENDING PHYSICIAN Internal Medicine; EMERGENCY PHYSICIAN Emergency Medicine
DX: L03.116 Cellulitis of left lower limb (principal); N17.9 Acute kidney failure, unspecified; L03.115 Cellulitis of right lower limb; E86.0 Dehydration; T50.2X5A Adverse effect of carbonic-anhydrase inhibitors, benzothiadiazides and other diuretics, initial encounter; K21.9 Gastro-esophageal reflux disease without esophagitis; E11.9 Type 2 diabetes mellitus without complications; I10 Essential (primary) hypertension; F03.90 Unspecified dementia, unspecified severity, without behavioral disturbance, psychotic disturbance, mood disturbance, and anxiety; I87.2 Venous insufficiency (chronic) (peripheral); S80.222A Blister (nonthermal), left knee, initial encounter; X58.XXXA Exposure to other specified factors, initial encounter; Z79.84 Long term (current) use of oral hypoglycemic drugs
CPT/HCPCS: 70450; 71046; 80048; 80053; 81003; 82962; 83036; 83605; 83735; 83880; 84484; 85025; 87040; 87070; 93970; 96365; 97163; 97166; 99284

== ENCOUNTER 2023-10-26 20:23 | Observation (INO) | payer MEDICARE, BC, SELFPAY ==
[2023-10-26] VITALS (7 sets, daily range): BP systolic 98–149; BP diastolic 38–99; BMI 39.6
--- NOTE | 2023-10-26 18:07 | ED.GENMED ---
History of Present Illness
General
Chief Complaint: Change in Mental Status
Time Seen by Provider: 10/26/23 17:34
History of Present Illness
History of Present Illness:
83-year-old female with history of Alzheimer's presents to the emergency department with her daughter for evaluation of worsening cognitive function and functional decline over the past several weeks. Was admitted to this hospital in late September due
to lower extremity edema and this was felt to represent cellulitis secondary to venous stasis. She was treated with oral antibiotics after discharge. Her daughter is concerned that she can no longer function at home and is falling frequently or
nearly falling frequently.
Past History
Past History
ED Past Medical History: HTN, IDDM and Other (Dementia, ); Negative Arrthythmia
ED Past Surgical History: Cholecystectomy, (X 3), Orthopedic (Right and left hip replacement, Left and right knee replacement,) and Tonsilectomy
Social History
Tobacco: Non-smoker
Alcohol: None
Drug: None
Personal:
Living: with family
Employment: Retired
Family History
Family History: Hypertension
Review of Systems
Review of Systems
Allergies reviewed?: Yes
All Other Systems: ROS reviewed and negative except as documented in HPI and ROS
Phy Exam
Physical Exam
Physical Exam:
GEN: Well appearing, NAD, WDWN
Eyes: PERRLA, EOMs intact, no scleral icterus
HENT: NCAT, oral mucosa moist
Lungs: CTAB, no wheezes, rales, rhonchi, normal chest wall excursion
Cardiac: RRR, no M/R/G, no peripheral edema. Radial pulses 2+ bilat
Abdomen: S, NT, ND, NABS, no masses or hepatosplenomegaly
Neuro: Alert, oriented to self only, disoriented to time and place
MSK: No gross deformity or ecchymosis. No edema. No digital clubbing
Skin: Left lower extremity is mildly erythematous with diffuse edema, right lower extremity displays edema with no erythema
Psych: Calm, cooperative, proper hygiene
Course
Orders/Labs/Results
Orders:
Orders
10/26/23 Dinner
2000 calorie (17 carb) Diabetic
10/26/23 18:09
Complete Blood Count/With Diff Urgent
Comprehensive Metabolic Panel Urgent
Urinalysis Reflex To Culture Urgent
Date Specimen was Collected: 10/26/23
Time Specimen was Collected: 18:08
10/26/23 19:28
Admit/Transfer Patient As Directed
Co-Sign Provider:
Level of Care: Observation services
Assign to:: Medical/Surgical
Physician / Group: Jillian
Diagnosis: Ambulatory Dysfunction
PRN Pain Medication Management As Directed
May give lesser potent ordered pain med per pt: Yes
preference::
Protocol:: Medication orders for pain may be administered in a
manner that supports deferring to patient preference
when the pt is:
- Requesting an ordered lesser potent pain medication.
Least to most potent pain medications are defined
as: acetaminophen < NSAID < tramadol < opioids
(morphine, oxycodone, hydromorphone).
- Requesting a lesser dose of the same medication IF
ORDERED.
- Requesting a less intrusive route of administration
if both routes are prescribed by the provider (PO <
IV).
10/26/23 19:33
Code Status As Directed
Resuscitation Status: Do not resuscitate
Reached after discussion with pt or family/Healthcare POA: Yes
DNR Bracelet Application ONCE
10/26/23 19:51
CR Knee - Left 4 Or More View* Urgent
Comment:
Reason For Exam: knee pain
10/26/23 20:33
Acetaminophen [Tylenol] 1,000 mg PO Q6HPRN PRN
Dextrose 50%-Water [Dextrose 50% Syringe] 12.5 grams IV O06EPMP PRN
Glucagon [GlucaGen] 1 mg IM PRN PRN
10/26/23 20:33
Case Management Consult ONCE
Case Management Consult: Discharge Planning
Activity As Directed
Activity Level: Out of Bed-Early Mobility
With Assistance
Bedside Glucose Monitoring As Directed
Frequency: AC&HS
Additional Instructions:: Change to q6h if pt on TPN, tube feeding or not eating
Compression Therapy As Directed
Location/extremity:: Left LE thigh high
Right LE thigh high
Type of compression therapy:: Vasile Wrap
I&O [Intake/ Output] As Directed
Frequency: q12h
Vital Signs As Directed
Frequency: Per unit guidelines
Weight As Directed
Frequency: Daily
Ot Eval And Treat Routine
Pt Eval And Treat Routine
Activity Level: Out of Bed-Early Mobility
With Assistance
DX Deep Vein Thrombosis Video Routine
10/26/23 22:00
Amlodipine [Norvasc] 2.5 mg PO HS
CeFAZolin 1 GRAM [Ancef] 1 gram in 5 ml IV Q8H
Glipizide Extended Release [Glucotrol Xl (Extended Release)] 10 mg PO BID AT 0800,1700
10/27/23 00:00
Heparin 5,000 units SC Q8
10/27/23 06:00
Basic Metabolic Panel IN AM
Glycohemoglobin (HgbA1c) IN AM
10/27/23 07:30
Insulin Aspart Corrective Low [Novolog Flexpen-Low Resistance] See Protocol SC AC
10/27/23 08:00
Carvedilol [Coreg] 12.5 mg PO DAILY
Furosemide [Lasix] 20 mg PO DAILY
Lisinopril [Zestril] 40 mg PO DAILY
Sitagliptin Phosphate [Januvia] 50 mg PO DAILY
10/27/23 18:00
Carvedilol [Coreg] 6.25 mg PO QPM
10/28/23 08:00
Cyanocobalamin [Vitamin B-12] 5,000 mcg PO SuWe@0800
Abnormal Lab Results
10/26/23
18:09
RBC 3.59 L 10^6/uL
(4.20-5.40)
Hgb 10.4 L g/dL
(12.0-16.0)
Hct 31.0 L %
(37.0-47.0)
Lymphocytes % 20.0 L %
(20.5-51.1)
BUN 47 H mg/dl
(7-17)
Creatinine 1.2 H mg/dL
(0.6-1.0)
Glucose 171 H mg/dl
(70-99)
Total Protein 5.7 L g/dl
(6.3-8.2)
Albumin 3.4 L g/dl
(3.5-5.0)
10/26/23 18:09
10/26/23 18:09
Vital Signs
Initial and Last Documented VS:
Initial Vital Signs
Temp Pulse Resp BP Pulse Ox
98.2 F 65 20 149/56 97
10/26/23 16:11 10/26/23 16:11 10/26/23 16:11 10/26/23 16:11 10/26/23 16:11
Last Documented Vital Signs
Temp Pulse Resp BP Pulse Ox
98.5 F 72 18 117/71 99
10/26/23 20:52 10/26/23 20:52 10/26/23 20:52 10/26/23 20:52 10/26/23 20:52
MDM/Problems Addressed
MDM/Problems Addressed:
Unclear etiology to the patient's functional decline. Certainly there is a cognitive component given her known dementia. She is not suitable for discharge to home, will admit for observation and placement considerations
*Critical Care Note
Total Time (30-74mins, 75-104mins- exclusive of procedures): Not Applicable
ED Attending Note
-
Portions of this chart may have been created with voice recognition software.� Occasional wrong word or��sound alike� substitutions may have occurred due to the inherent limitations of voice recognition software.
Discharge Plan
Departure
Patient Disposition: Admit
Date of Disposition: 10/26/23
Time of Disposition: 18:47
Admit to: Med/Surg
Presentation/result/management discussed w/ accepting MD/DO: Hospitalist
Discharge Problem:
Ambulatory dysfunction
Interventions
Interventions:
*Risk Screen - Suicide Last Done: 10/26/23 16:11
*General Assessment Last Done: 10/26/23 16:11
*Neglect/Abuse Screening Last Done: 10/26/23 16:11
*Nursing Disposition Last Done: 10/26/23 20:39
ED- Pulmonary Assessment Last Done: 10/26/23 17:44
ED- Neurological Assessment Last Done: 10/26/23 17:44
ED- Cardiac Assessment Last Done: 10/26/23 17:44
Discharge Date and Time
Discharge Date/Time: 10/26/23 20:40
[2023-10-26 18:24] LABS: % Basophils 0.6 % (0-2); % Eosinophils 2.7 % (0-6); % Immature Granulocytes 0.3 % (0-0.5); % Monocytes 7.3 % (1.7-9.3); % Neutrophils 69.1 % (42.2-75.2); Absolute Eosinophils 0.2 10^3/uL (0-0.7); Absolute Lymphocytes 1.4 10^3/uL (1.2-3.4); Absolute Monocytes 0.5 10^3/uL (0.1-0.6); Absolute Neutrophils 4.9 10^3/uL (1.4-6.5); Hemoglobin 10.4 g/dL (12.0-16.0); Mean Corp Hgb Conc. 33.5 g/dL (33.0-37.0); Mean Corpuscular Volume 86.4 fL (81.0-99.0); Mean Platelet Volume 9.8 fL (7.4-10.4); Nucleated Red Blood Cells % 0 %; Platelet Count 234 10^3/uL (130-400); Red Blood Cell Count 3.59 10^6/uL (4.20-5.40); Red Cell Dist. Width 13.2 % (11.5-14.5); White Blood Cell Count 7.1 10^3/uL (4.8-10.8)
[2023-10-26 18:25] LABS: Urine Albumin Negative (Neg - Trace); Urine Bilirubin Negative (Negative); Urine Character Clear (Clear); Urine Color Yellow; Urine Glucose Negative (Negative); Urine Ketone Negative (Negative); Urine Leukocyte Negative (Negative); Urine Nitrite Negative (Negative); Urine Occult Blood Negative (Negative); Urine Urobilinogen Negative (Neg - 1+)
[2023-10-26 18:37] LABS: ALT (SGPT) 15 U/L (0-35); AST (SGOT) 22 U/L (14-36); Albumin 3.4 g/dl (3.5-5.0); Alkaline Phosphatase 73 U/L (38-126); Blood Urea Nitrogen 47 mg/dl (7-17); Calcium 10.1 mg/dl (8.4-10.2); Carbon Dioxide 29 mmol/L (22-30); Chloride 105 mmol/L (98-107); Glucose 171 mg/dl (70-99); Potassium 5.1 mmol/L (3.5-5.1); Sodium 140 mmol/L (135-145); Total Bilirubin 0.3 mg/dl (0.2-1.3); Total Protein 5.7 g/dl (6.3-8.2); eGFR 44.91
--- NOTE | 2023-10-26 19:35 | HPS.HSE ---
Addendum entered and electronically signed by Kiarra Walsh DO 10/26/23 20:28:
The patient is seen and examined. I have reviewed the patient with Kavitha, and agree with history and physical, assessment and plan of care as below , with additions:
Pain in left knee causing inability to ambulate. Redness to LLE ankle in patches and left knee more red than right knee
VSS/AF
CV RRR, no m/r/g
Neuro no focal deficits, patient is somnolent, speaking nonsensical
Lungs CTA b/l
Left LE 3 ulcerative lesions pink, healing, surrounding erythema noted
Ambulatory dysfunction per below
Will add IV Ancef , check x-ray left knee , monitor for clinical improving, wound care LLE
PT/OT eval, CM consultation for placement
Original Note:
Family Physician
-
Family Physician: Broderick Gomes
Chief Complaint
-
Ambulatory Dysfunction
History of Present Illness
Patient is an 83 y/o female with a PMH of Alzheimer Disease, HTN, Type 2 DM, chronic lymphedema, and CKD II who reports to the ED with her daughter for change in mental status. Per her daughter patient's change in mental status has been sudden and
started back in September when she was hospitalized for lower LE edema and cellulitis secondary to venous stasis. Her daughter states that her lymphedema continues to be an issue and that recently patient has been complaining of leg pain and has been
falling more. Due to her renal insufficiency she hasn't been taking Aleve anymore and Tylenol doesn't seem to alleviate the pain. Patient was recently seen at her PCP's office and had some medication changes. She was started on gabapentin once at
night, taken off the HCTZ daily, and her Lasix was increased to every other day. Since starting the gabapentin her daughter has notice she was been having visual hallucinations. Her daughter is concerned about patient's worsening cognitive function
and her functional decline. She doesn't think it is safe for her mother to stay at home and is looking for alternative placement.
Medical History
Past Medical History
Past Medical History: Reports Other
Additional Past Medical History:
Diabetes Mellitus, Type II
Essential Hypertension
Chronic Lower Extremity Lymphedema
CKD Stage II
Anemia of Chronic Disease
Alzheimer's Dementia
Osteoarthritis
Past Surgical History: Reports Other
Additional Past Surgical History:
Cholecystectomy
Cesarian Section
Bilateral Hip Replacements
Bilateral Knee Replacements
Tonsillectomy
Social History
Tobacco: Non-smoker
Alcohol: None
Living: With Family
Family History
Family History: Not pertinent
Allergies / Home Medications
Allergies reflects when Allergies were last updated in [facility].
Home Medications with original date entered in [facility]
Allergy/Medication List:
Allergies
Allergy/AdvReac Type Severity Reaction Status Date / Time
Opioids - Morphine Analogues Allergy Mild Nausea / Verified 10/26/23 16:16
Vomiting
Home Medications
carvedilol 6.25 mg tablet 12.5 mg PO DAILY Heart Disease/Condition 07/22/19
glipizide 10 mg tablet, extended release 24 hr 10 mg PO BID Diabetes 07/22/19
lisinopril 40 mg tablet 40 mg PO DAILY Blood Pressure 07/22/19
acetaminophen 500 mg tablet 1,000 mg PO Q6HPRN PRN mild pain 10/06/23
amlodipine 5 mg tablet 2.5 mg PO HS Blood Pressure 10/06/23
carvedilol 6.25 mg tablet 6.25 mg PO QPM Heart Disease/Condition 10/06/23
furosemide 20 mg tablet 20 mg PO Q48H Fluid Retention/Swelling 10/06/23
sitagliptin phosphate 50 mg tablet (Januvia) 50 mg PO DAILY Diabetes 10/06/23
cholecalciferol (vitamin D3) 50 mcg (2,000 unit) capsule (Vitamin D3) 50 mcg PO DAILY 10/26/23
cyanocobalamin (vitamin B-12) 5,000 mcg capsule 5,000 mcg PO SUWE 10/26/23
diclofenac sodium 1 % topical gel 0 g topical DAILYPRN PRN left knee 10/26/23
gabapentin 100 mg capsule 100 mg PO TID 10/26/23
Review of Systems
-
Unable to obtain full review of systems at this time due to: Dementia
Physical Exam
Vital Signs
Vital Signs
Temp Pulse Resp BP Pulse Ox
98.2 F 63 17 109/38 97
10/26/23 16:11 10/26/23 18:45 10/26/23 18:30 10/26/23 18:00 10/26/23 18:45
Physical Exam
General: Well Developed and Well Nourished
HEENT: Anicteric and Moist mucous membranes
Respiratory: Clear and Non Labored Respirations
Cardiac: S1/S2 and Regular Rhythm
GI: Soft and Non Tender
Rectal: Deferred by Provider
Genito-urinary: Clear Urine
Musculoskeletal: No Clubbing, No Cyanosis and Other (Chronic Bilateral Lower Extremity Edema, slightly worse on left which daughter reports is chronic)
Skin: Warm, Dry and Other (Small blister left great toe)
Neuro: Awake, Alert, Oriented and Nonfocal/grossly intact
Psych: Calm
Laboratory Results
-
10/26/23 18:09
10/26/23 18:09
Laboratory Results
Total Bilirubin 0.3 mg/dl (0.2-1.3) 10/26/23 18:09
AST 22 U/L (14-36) 10/26/23 18:09
ALT 15 U/L (0-35) 10/26/23 18:09
Alkaline Phosphatase 73 U/L (38-126) 10/26/23 18:09
Data Reviewed
-
Lab Data: Labs Reviewed by me
Impression/Plan
-
Ambulatory Dysfunction
-Consult PT/OT
-Consult Case Management for Discharge Planning
Chronic Lower Extremity Lymphedema
-Increase Lasix 20mg Daily
-Continue compression with CHETAN wraps
-Add Ancef for possible LLE Cellulitis
Diabetes Mellitus, Type II
-Check HgbA1c
-Continue Glipizide and Januvia
-Monitor sugars and continue coverage insulin
Essential Hypertension
-Continue amlodipine, carvedilol and lisinopril
CKD Stage II
-Creatinine at baseline
Anemia of Chronic Disease
-Hgb at baseline
Alzheimer's Dementia
-Monitor for mood//behavior changes during hospitalization
Osteoarthritis
-Recently started on gabapentin which is likely the cause of patient's hallucinations over the past few days
-Discontinue gabapentin
DVT proph: SC Heparin
Code Status: DNR
--- NOTE | 2023-10-26 21:00 | PTCARENOTE ---
Received patient from ED via stretcher. Patient pulled over from stretcher to bed. AAO to self only, no current complaints of pain. Oriented patient to room and placed call lao within reach.
[2023-10-26 21:13] LABS: Glucose - Point of Care 150 mg/dl (70-99)
[2023-10-26] MEDS: NORVASC 2.5 MG PO (21:42)
[2023-10-26] MEDS: ANCEF 5 IV (21:42)
[2023-10-26] MEDS: GLUCOTROL XL (EXTENDED RELEASE) 10 MG PO (21:42)
[2023-10-26] MEDS: HEPARIN 5000 UNITS SC (23:37)
[2023-10-27] MEDS: ANCEF 5 IV ×3 (05:22→21:33)
[2023-10-27 05:43] LABS: Blood Urea Nitrogen 37 mg/dl (7-17); Calcium 9.6 mg/dl (8.4-10.2); Carbon Dioxide 29 mmol/L (22-30); Chloride 108 mmol/L (98-107); Estimated Creatinine Clearance 54 ml/min; Glucose 68 mg/dl (70-99); Potassium 4.3 mmol/L (3.5-5.1); Sodium 141 mmol/L (135-145)
[2023-10-27 06:00] VITALS: BMI 39.4
[2023-10-27 07:14] LABS: Glucose - Point of Care 78 mg/dl (70-99)
[2023-10-27 07:20] VITALS: BP 143/54
[2023-10-27] MEDS: NOVOLOG FLEXPEN-LOW RESISTANCE SC (08:51)
[2023-10-27] MEDS: GLUCOTROL XL (EXTENDED RELEASE) PO (09:03)
[2023-10-27] MEDS: JANUVIA PO (09:03)
[2023-10-27] MEDS: ZESTRIL 40 MG PO (10:02)
[2023-10-27] MEDS: COREG 12.5 MG PO (10:02)
[2023-10-27] MEDS: LASIX 20 MG PO (10:02)
[2023-10-27] MEDS: HEPARIN 5000 UNITS SC ×3 (10:03→23:37)
[2023-10-27] MEDS: DESENEX/MITRAZOL/ZEASORB 1 APPLIC TOPICAL ×2 (10:05→21:32)
--- NOTE | 2023-10-27 10:09 | W.PN.HOSP.TC ---
Today's Communication/Plan
-
PT/OT
CM consult
IV Ancef
wound care
Assessment / Plan
Assessment / Plan
Assessment:
chronic Ambulatory Dysfunction
- continue PT/OT
- DC planning with CM
Chronic Lower Extremity Lymphedema
chronic LE ulcerations/blisters
- Increase Lasix 20mg Daily
- Continue compression with CHETAN wraps; wound care following
- continue Ancef, day 1, for possible LLE Cellulitis
Diabetes Mellitus, Type II
- HgbA1c 6.9% recently
- continue Glipizide and Januvia
- Monitor sugars and continue coverage insulin
Essential Hypertension
- continue amlodipine, carvedilol and lisinopril
CKD Stage 3A
- creatinine at baseline
Anemia of Chronic Disease
- Hgb at baseline
Alzheimer's Dementia
- monitor for mood/behavior changes during hospitalization
Osteoarthritis
- recently started on gabapentin which is likely the cause of patient's hallucinations over the past few days
- discontinue gabapentin
DVT ppx: SC Heparin
Code: DNR
Anticipated Discharge: > 48 hours
Subjective/Interval History
-
Date of Service: October 27, 2023
no acute issues overnight
pleasantly confused this morning, in line with known dementia
Objective Data
-
Labs:
Laboratory Results
10/27/23
04:46
Sodium 141
Potassium 4.3
Chloride 108 H
Carbon Dioxide 29
BUN 37 H
Creatinine 1.0
Glucose 68 L
Calcium 9.6
Vital Signs:
Vital Signs
Temp Pulse Resp BP Pulse Ox
98.4 F 71 17 143/54 96
10/27/23 07:20 10/27/23 07:20 10/27/23 07:20 10/27/23 07:20 10/27/23 07:20
I&O
10/26/23 10/27/23 10/28/23
06:59 06:59 06:59
Intake Total 0 / 0
Output Total 200 / 200
Balance -200 / -200
Physical Exam
-
General: No Apparent Distress and Morbidly Obese
HEENT: Normocephalic and Atraumatic
Respiratory: Negative Wheezes
Cardiac: Regular Rhythm and S1/S2
GI: Soft
Musculoskeletal: Other (venous insufficiency edema and LE blisters/ulcerations, chronic venous stasis changes LLE>RLE)
Neuro: Awake
Psych: Apparent Dementia
Data Reviewed
-
Total Time Spent with Patient (in minutes): 43
Labs: Labs Reviewed by me
--- NOTE | 2023-10-27 10:30 | WOUNDNOTE ---
WON RN note: Patient admitted with ambulatory dysfunction.
See H&P for complete history.
PMH: Type 2 DM, HTN, GERD, Dementia-Alzheimer. Pleasant, oriented to self only.
Wound Location and type/assessment: Patient known to service, for L leg blisters. Admitted with open venous blister on L lateral leg and dry flat blister on L great toe. Skin warm and dry, 2-3+ edema, faint palpable pedal pulses.
L leg looks improved compared to last seen on 10/08/23. Heels are intact, nurse reports sacrum blanchable pink. PT got patient up and sitting in chair, legs elevated with pillow under calves.
Pressure redistribution devices in place: Versa Care Accumax, pillow under calves.
Plan: Adaptic and dry dressing applied to blisters on L leg/toe. B/L Compression applied with CHETAN wraps thigh high as already ordered. RN updated and care plan, confirmed wound care orders with Dr. Martinez.
Will continue to follow as needed.
VN needed unless going to SNF upon discharge.
[2023-10-27 10:48] VITALS: BP 120/72; BP 153/64; PULSE 65; O2SAT 97
[2023-10-27 11:17] LABS: Glucose - Point of Care 190 mg/dl (70-99)
[2023-10-27] MEDS: NOVOLOG FLEXPEN-LOW RESISTANCE 1 UNITS SC ×2 (12:14→17:03)
[2023-10-27 15:18] VITALS: BP 186/90
[2023-10-27 16:12] LABS: Glucose - Point of Care 170 mg/dl (70-99)
--- NOTE | 2023-10-27 16:15 | CM ---
CM met with Diamond, patient's daughter with whom she lives. Holly has been increasingly difficult to care for at home, so family is considering placement at a memory care facility; Holly has dementia. Family had private help in the home most
days, however Diamond will be meeting with a memory care facility in [place], [place] this evening in anticipation of discharge to the facility at discharge.
During my visit with Diamond, Holly was speaking nonsensically, was not able to identify who her daughter was when asked.
CM will follow to facilitate placement once a facility is chosen.
Plan: Discharge to memory care facility of family choice.
PCP: Broderick Gomes
Pharmacy:
[2023-10-27] MEDS: COREG 6.25 MG PO (16:54)
[2023-10-27] MEDS: GLUCOTROL XL (EXTENDED RELEASE) 10 MG PO (16:55)
[2023-10-27 18:11] VITALS: BP 115/59
[2023-10-27] MEDS: NORVASC 2.5 MG PO (21:33)
[2023-10-27 21:36] LABS: Glucose - Point of Care 140 mg/dl (70-99)
[2023-10-27 23:51] VITALS: BP 133/55
--- NOTE | 2023-10-28 03:01 | DOWNTIME ---
There was a [employer] Client [employer] Medical Device Downtime on 10/28/2023 from 0100 to 10/28/2023 at 0255. Downtime documentation of patient's care, including medication administrations, has been reconciled in the electronic record per guidelines. Refer to the
patient's paper chart under the miscellaneous tab to see printed paper medication records and downtime forms.
[2023-10-28 06:00] VITALS: BMI 38.7
[2023-10-28] MEDS: ANCEF 5 IV ×3 (06:36→21:43)
[2023-10-28 07:11] LABS: Glucose - Point of Care 81 mg/dl (70-99)
[2023-10-28 07:20] VITALS: BP 149/89
[2023-10-28 07:27] LABS: Hematocrit 31.4 % (37.0-47.0); Hemoglobin 10.5 g/dL (12.0-16.0); Mean Corp Hgb Conc. 33.4 g/dL (33.0-37.0); Mean Corpuscular Hgb 29.7 pg (27.0-31.0); Mean Corpuscular Volume 88.7 fL (81.0-99.0); Mean Platelet Volume 10.2 fL (7.4-10.4); Platelet Count 216 10^3/uL (130-400); Red Blood Cell Count 3.54 10^6/uL (4.20-5.40); White Blood Cell Count 4.9 10^3/uL (4.8-10.8)
[2023-10-28 07:29] LABS: Blood Urea Nitrogen 29 mg/dl (7-17); Calcium 9.6 mg/dl (8.4-10.2); Carbon Dioxide 28 mmol/L (22-30); Chloride 106 mmol/L (98-107); Estimated Creatinine Clearance 53 ml/min; Glucose 74 mg/dl (70-99); Potassium 4.3 mmol/L (3.5-5.1); Sodium 140 mmol/L (135-145)
--- NOTE | 2023-10-28 08:54 | W.PN.HOSP.TC ---
Today's Communication/Plan
-
continue IV Ancef
continue wound care
monitor mentation
DC planning
Assessment / Plan
Assessment / Plan
Assessment:
chronic Ambulatory Dysfunction
- continue PT/OT
- DC planning with CM; to a memory care facility
Chronic Lower Extremity Lymphedema
chronic LE ulcerations/blisters
- continue increased dose of Lasix (20 mg Daily)
- continue compression with CHETAN wraps; wound care following
- continue Ancef, day 2, for possible LLE Cellulitis
Diabetes Mellitus, Type II
- HbA1c 6.9% recently
- continue Glipizide and Januvia
- monitor sugars and continue coverage insulin
Essential Hypertension
- continue amlodipine, carvedilol and lisinopril
CKD Stage 3A
- creatinine at baseline
Anemia of Chronic Disease
- Hgb at baseline
Alzheimer's Dementia
- monitor for mood/behavior changes during hospitalization
Osteoarthritis
- recently started on gabapentin which is likely the cause of patient's hallucinations over the past few days
- discontinue gabapentin
DVT ppx: SC Heparin
Code: DNR
Anticipated Discharge: 24 - 48 hours
Subjective/Interval History
-
Date of Service: October 28, 2023
No overnight events
Objective Data
-
Labs:
Laboratory Results
10/28/23
06:37
WBC 4.9
Hgb 10.5 L
Hct 31.4 L
Plt Count 216
Sodium 140
Potassium 4.3
Chloride 106
Carbon Dioxide 28
BUN 29 H
Creatinine 1.0
Glucose 74
Calcium 9.6
Vital Signs:
Vital Signs
Temp Pulse Resp BP Pulse Ox
97.9 F 67 18 149/89 96
10/28/23 07:20 10/28/23 07:20 10/28/23 07:20 10/28/23 07:20 10/28/23 07:20
I&O
10/27/23 10/28/23 10/29/23
06:59 06:59 06:59
Intake Total 0 / 0 900 / 900
Output Total 200 / 200
Balance -200 / -200 900 / 900
Physical Exam
-
General: No Apparent Distress
HEENT: Normocephalic and Atraumatic
Respiratory: Negative Wheezes
Cardiac: Regular Rhythm and S1/S2
GI: Soft
Genito-urinary: No Costovertebral Tender
Musculoskeletal: Other (venous insufficiency edema and LE blisters/ulcerations, chronic venous stasis changes LLE>RLE)
Neuro: Awake
Psych: Apparent Dementia
Data Reviewed
-
Total Time Spent with Patient (in minutes): 45
Labs: Labs Reviewed by me
[2023-10-28] MEDS: NOVOLOG FLEXPEN-LOW RESISTANCE SC (09:30)
[2023-10-28] MEDS: GLUCOTROL XL (EXTENDED RELEASE) 10 MG PO ×2 (09:31→16:52)
[2023-10-28] MEDS: LASIX 20 MG PO (09:31)
[2023-10-28] MEDS: HEPARIN 5000 UNITS SC ×2 (09:32→16:47)
[2023-10-28] MEDS: DESENEX/MITRAZOL/ZEASORB 1 APPLIC TOPICAL ×2 (09:32→21:43)
[2023-10-28] MEDS: ZESTRIL 40 MG PO (09:32)
[2023-10-28] MEDS: COREG 12.5 MG PO (09:32)
[2023-10-28] MEDS: JANUVIA 50 MG PO (09:32)
[2023-10-28] MEDS: HYDROPHOR 1 APPLIC TOPICAL (09:33)
[2023-10-28] MEDS: VITAMIN B-12 5000 MCG PO (11:01)
[2023-10-28 11:49] LABS: Glucose - Point of Care 156 mg/dl (70-99)
[2023-10-28] MEDS: NOVOLOG FLEXPEN-LOW RESISTANCE 1 UNITS SC ×2 (13:16→16:52)
[2023-10-28] MEDS: FLUSH (NSS) 1 FLUSH IV (14:08)
[2023-10-28 15:04] VITALS: BP 155/59
--- NOTE | 2023-10-28 16:10 | PTCARENOTE ---
Pt awake and alert, oriented to self only; very confused, wandering conversation; pt frequently singing/laughing; offers no c/o. SARMIENTO slowly; OOB to B[facility] with assist x2/walker. VSS. On room air- pulseox 97%, no SOB noted. Abd obese,soft, denise PO
well. Incont large amts of urine, pt does not call for bedpan/incont prior to transfer to [facility]; Purewick catheter in place. CHETAN wraps D/I BLE. Resting in bed at present. Will continue to monitor.
--- NOTE | 2023-10-28 16:15 | CM ---
CM spoke with Christine Alder and her DON Diamond to discuss admission. Wound care needs were a concern; wound care notes sent via fax for review. Facility may come to evaluate wounds in person if they have concerns after reviewing the documentation.
Consideration for short term SNF placement has also been discussed; daughter is open to whatever they feel is best plan for transition.
CM will f/u in am with Tirso to determine next steps.
PCP: Broderick HUNT
Pharmacy: [facility] in [place]
[2023-10-28 16:16] VITALS: BP 165/79; PULSE 68; O2SAT 97
[2023-10-28 16:45] LABS: Glucose - Point of Care 169 mg/dl (70-99)
[2023-10-28] MEDS: COREG 6.25 MG PO (17:53)
[2023-10-28 21:31] LABS: Glucose - Point of Care 158 mg/dl (70-99)
[2023-10-28] MEDS: NORVASC 2.5 MG PO (21:44)
[2023-10-28 23:41] VITALS: BP 138/53
[2023-10-29] MEDS: HEPARIN 5000 UNITS SC ×3 (00:39→17:01)
[2023-10-29 06:00] VITALS: BMI 38.6
[2023-10-29] MEDS: ANCEF 5 IV ×3 (06:39→22:28)
[2023-10-29 07:57] LABS: Hematocrit 31.4 % (37.0-47.0); Hemoglobin 10.6 g/dL (12.0-16.0); Mean Corp Hgb Conc. 33.8 g/dL (33.0-37.0); Mean Corpuscular Hgb 28.8 pg (27.0-31.0); Mean Corpuscular Volume 85.3 fL (81.0-99.0); Mean Platelet Volume 9.5 fL (7.4-10.4); Platelet Count 225 10^3/uL (130-400); Red Blood Cell Count 3.68 10^6/uL (4.20-5.40); White Blood Cell Count 5.4 10^3/uL (4.8-10.8)
[2023-10-29 08:13] VITALS: BP 156/55
[2023-10-29 08:19] LABS: Glucose - Point of Care 106 mg/dl (70-99)
[2023-10-29 08:27] LABS: Blood Urea Nitrogen 24 mg/dl (7-17); Calcium 9.6 mg/dl (8.4-10.2); Carbon Dioxide 28 mmol/L (22-30); Chloride 106 mmol/L (98-107); Estimated Creatinine Clearance 59 ml/min; Glucose 96 mg/dl (70-99); Potassium 4.2 mmol/L (3.5-5.1); Sodium 140 mmol/L (135-145); eGFR > 60.00
[2023-10-29] MEDS: NOVOLOG FLEXPEN-LOW RESISTANCE SC (08:56)
[2023-10-29] MEDS: COREG 12.5 MG PO (08:56)
[2023-10-29] MEDS: GLUCOTROL XL (EXTENDED RELEASE) 10 MG PO ×2 (08:56→18:00)
[2023-10-29] MEDS: ZESTRIL 40 MG PO (08:57)
[2023-10-29] MEDS: LASIX 20 MG PO (08:57)
[2023-10-29] MEDS: JANUVIA 50 MG PO (08:57)
[2023-10-29] MEDS: HYDROPHOR 1 APPLIC TOPICAL (08:57)
[2023-10-29] MEDS: DESENEX/MITRAZOL/ZEASORB 1 APPLIC TOPICAL ×2 (08:58→20:28)
--- NOTE | 2023-10-29 09:32 | W.PN.HOSP.TC ---
Today's Communication/Plan
-
continue IV Ancef
continue wound care
monitor mentation
DC planning
Assessment / Plan
Assessment / Plan
Assessment:
chronic Ambulatory Dysfunction
- continue PT/OT
- DC planning with CM; to a memory care facility
Chronic Lower Extremity Lymphedema
chronic LE ulcerations/blisters
- continue increased dose of Lasix (20 mg Daily)
- continue compression with CHETAN wraps; wound care following
- continue Ancef, day 3, for possible LLE Cellulitis
Diabetes Mellitus, Type II
- HbA1c 6.9% recently
- continue Glipizide and Januvia
- monitor sugars and continue coverage insulin
Essential Hypertension
- continue amlodipine, carvedilol and lisinopril
CKD Stage 3A
- creatinine at baseline
Anemia of Chronic Disease
- Hgb at baseline
Alzheimer's Dementia
- monitor for mood/behavior changes during hospitalization
Osteoarthritis
- recently started on gabapentin which is likely the cause of patient's hallucinations over the past few days
- discontinue gabapentin
DVT ppx: SC Heparin
Code: DNR
Anticipated Discharge: 24 - 48 hours
Subjective/Interval History
-
Date of Service: October 29, 2023
no acute events overnight
Objective Data
-
Labs:
Laboratory Results
10/29/23
07:34
WBC 5.4
Hgb 10.6 L
Hct 31.4 L
Plt Count 225
Sodium 140
Potassium 4.2
Chloride 106
Carbon Dioxide 28
BUN 24 H
Creatinine 0.9
Glucose 96
Calcium 9.6
Vital Signs:
Vital Signs
Temp Pulse Resp BP Pulse Ox
98.3 F 63 18 156/55 96
07/18/24 08:13 10/29/23 08:57 10/29/23 08:13 10/29/23 08:57 10/29/23 08:55
I&O
10/28/23 10/29/23 10/30/23
06:59 06:59 06:59
Intake Total 900 / 900 1260 / 1260
Output Total 500 / 500
Balance 900 / 900 760 / 760
Physical Exam
-
General: No Apparent Distress
HEENT: Normocephalic and Atraumatic
Respiratory: Negative Wheezes
Cardiac: Regular Rhythm and S1/S2
GI: Soft
Musculoskeletal: Other (venous insufficiency edema and LE blisters/ulcerations, chronic venous stasis changes LLE>RLE)
Neuro: AO x 3
Hematologic / Lymphatic: No Lymphadenopathy
Psych: Calm
Data Reviewed
-
Total Time Spent with Patient (in minutes): 42
Labs: Labs Reviewed by me
--- NOTE | 2023-10-29 10:25 | CM ---
BAO spoke with Christine Adler from [facility] which is the anticipated facility for discharge. Christine advised that SNF may be needed prior to her coming to [facility].
Therapy notes reviewed. OT asked to see pt today for update which will help determine SNF vs. [facility].
With potential for SNF admission, BAO spoke with daughter Rosangela to update regarding consideration for SNF vs. direct admit to [facility]. Rosangela was advised that with Observation status, her mother does not have a 3 day IP stay to qualify for SNF, so if
SNF is recommended, this would be private pay at a facility.
Facilities discussed are [facility], [facility], [facility], [facility]. Rosangela will contact me later today to further discuss.
Await therapy input and will follow up with update to [facility].
[2023-10-29 11:51] LABS: Glucose - Point of Care 172 mg/dl (70-99)
[2023-10-29] MEDS: NOVOLOG FLEXPEN-LOW RESISTANCE 1 UNITS SC (12:58)
[2023-10-29 14:46] VITALS: BP 159/71; PULSE 66; O2SAT 97
[2023-10-29 14:49] VITALS: BP 159/71; PULSE 65; O2SAT 97
[2023-10-29] MEDS: FLUSH (NSS) 1 FLUSH IV (15:04)
[2023-10-29 16:27] VITALS: BP 150/56
--- NOTE | 2023-10-29 16:36 | PTCARENOTE ---
Pt awake and alert; oriented to self only; pt pleasant and cooperative. Pt with confused conversation; answers questions incorrectly; frequently singing/humming. SARMIENTO; OOB to chair with assist x 1-2/walker, denise well. Abd obese, soft, denise PO well.
Incont large amts urine; does not notify staff of need to void. CHETAN wraps intact to BLE; wund care to LLE as ordered. Resting comfortably at present. Will continue to monitor.
[2023-10-29 16:56] LABS: Glucose - Point of Care 260 mg/dl (70-99)
[2023-10-29] MEDS: COREG 6.25 MG PO (18:00)
[2023-10-29] MEDS: NOVOLOG FLEXPEN-LOW RESISTANCE 3 UNITS SC (18:00)
[2023-10-29 21:18] LABS: Glucose - Point of Care 182 mg/dl (70-99)
[2023-10-29] MEDS: NORVASC 2.5 MG PO (22:18)
[2023-10-29 23:31] VITALS: BP 144/83
[2023-10-30] MEDS: HEPARIN 5000 UNITS SC ×2 (00:43→09:05)
[2023-10-30] MEDS: ANCEF 5 IV (05:31)
[2023-10-30 08:00] VITALS: BP 148/76
[2023-10-30 08:14] LABS: Glucose - Point of Care 90 mg/dl (70-99)
[2023-10-30] MEDS: NOVOLOG FLEXPEN-LOW RESISTANCE SC (09:04)
[2023-10-30] MEDS: GLUCOTROL XL (EXTENDED RELEASE) 10 MG PO (09:06)
[2023-10-30] MEDS: JANUVIA 50 MG PO (09:06)
[2023-10-30] MEDS: COREG 12.5 MG PO (09:06)
[2023-10-30] MEDS: LASIX 20 MG PO (09:07)
[2023-10-30] MEDS: ZESTRIL 40 MG PO (09:07)
[2023-10-30] MEDS: HYDROPHOR 1 APPLIC TOPICAL (09:21)
[2023-10-30] MEDS: DESENEX/MITRAZOL/ZEASORB 1 APPLIC TOPICAL (09:22)
[2023-10-30 09:39] LABS: Hematocrit 31.8 % (37.0-47.0); Hemoglobin 10.4 g/dL (12.0-16.0); Mean Corp Hgb Conc. 32.7 g/dL (33.0-37.0); Mean Corpuscular Hgb 28.6 pg (27.0-31.0); Mean Corpuscular Volume 87.4 fL (81.0-99.0); Mean Platelet Volume 10.1 fL (7.4-10.4); Platelet Count 239 10^3/uL (130-400); Red Blood Cell Count 3.64 10^6/uL (4.20-5.40); White Blood Cell Count 5.6 10^3/uL (4.8-10.8)
[2023-10-30 09:40] LABS: Blood Urea Nitrogen 30 mg/dl (7-17); Calcium 9.6 mg/dl (8.4-10.2); Carbon Dioxide 30 mmol/L (22-30); Chloride 104 mmol/L (98-107); Estimated Creatinine Clearance 48 ml/min; Glucose 97 mg/dl (70-99); Potassium 4.1 mmol/L (3.5-5.1); Sodium 138 mmol/L (135-145); eGFR 49.86
--- NOTE | 2023-10-30 10:13 | W.PN.HOSP.TC ---
Today's Communication/Plan
-
dc to SNF today
Assessment / Plan
Assessment / Plan
Assessment:
chronic Ambulatory Dysfunction
- continue PT/OT - SNF discharge prior to memory care unit
- DC planning with CM; to a memory care facility
Chronic Lower Extremity Lymphedema
chronic LE ulcerations/blisters
- continue increased dose of Lasix (20 mg Daily)
- continue compression with CHETAN wraps; wound care following
- continue Ancef, day 07/21, for possible LLE Cellulitis
Diabetes Mellitus, Type II
- HbA1c 6.9% recently
- continue Glipizide and Januvia
- monitor sugars and continue coverage insulin
Essential Hypertension
- continue amlodipine, carvedilol and lisinopril
CKD Stage 3A
- creatinine at baseline
Anemia of Chronic Disease
- Hgb at baseline
Alzheimer's Dementia
- monitor for mood/behavior changes during hospitalization
Osteoarthritis
- recently started on gabapentin which is likely the cause of patient's hallucinations over the past few days
- discontinue gabapentin
DVT ppx: SC Heparin
Code: DNR
More than 30 minutes spent in discharge including
Final examination of the patient
Summarizing hospital stay
Instructions for continuing care to all relevant caregivers
Preparation of discharge records, prescriptions, and referral forms
Total time spent (in minutes): 45
Anticipated Discharge: Today
Subjective/Interval History
-
Date of Service: October 30, 2023
no acute overnight events
Objective Data
-
Labs:
Laboratory Results
10/30/23
08:11
WBC 5.6
Hgb 10.4 L
Hct 31.8 L
Plt Count 239
Sodium 138
Potassium 4.1
Chloride 104
Carbon Dioxide 30
BUN 30 H
Creatinine 1.1 H
Glucose 97
Calcium 9.6
Vital Signs:
Vital Signs
Temp Pulse Resp BP Pulse Ox
97.9 F 64 18 144/83 95
10/29/23 23:31 10/30/23 09:07 10/29/23 23:31 10/30/23 09:07 10/30/23 00:35
I&O
10/29/23 10/30/23 10/31/23
06:59 06:59 06:59
Intake Total 1260 / 1260 1080 / 1080
Output Total 500 / 500
Balance 760 / 760 1080 / 1080
Physical Exam
-
General: No Apparent Distress
HEENT: Normocephalic and Atraumatic
Respiratory: Negative Wheezes
Cardiac: Regular Rhythm and S1/S2
GI: Soft and Nontender
Genito-urinary: No Costovertebral Tender
Musculoskeletal: No Edema
Neuro: AO x 3
Hematologic / Lymphatic: No Lymphadenopathy
Psych: Calm
Data Reviewed
-
Total Time Spent with Patient (in minutes): 45
Labs: Labs Reviewed by me
--- NOTE | 2023-10-30 10:24 | W.DS.TRANS ---
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
-
Discharge Instructions:
Discharge Diagnosis/Procedures LLE cellulitis, lymphedema, chronic wounds
Diet Diabetic, Carb Controlled
Activity As tolerated
Other Services VN,PT,OT
Instructions:
Stand-Alone Forms:
Changes to Home Medications: Yes
Discharge Medications:
DC Medications w/original date entered in [employer]
carvedilol 6.25 mg tablet 12.5 mg PO DAILY Heart Disease/Condition 07/22/19
glipizide 10 mg tablet, extended release 24 hr 10 mg PO BID Diabetes 07/22/19
lisinopril 40 mg tablet 40 mg PO DAILY Blood Pressure 07/22/19
acetaminophen 500 mg tablet 1,000 mg PO Q6HPRN PRN mild pain 10/06/23
amlodipine 5 mg tablet 2.5 mg PO HS Blood Pressure 10/06/23
carvedilol 6.25 mg tablet 6.25 mg PO QPM Heart Disease/Condition 10/06/23
sitagliptin phosphate 50 mg tablet (Januvia) 50 mg PO DAILY Diabetes 10/06/23
cholecalciferol (vitamin D3) 50 mcg (2,000 unit) capsule (Vitamin D3) 50 mcg PO DAILY Supplement 10/26/23
cyanocobalamin (vitamin B-12) 5,000 mcg capsule 5,000 mcg PO SUWE Supplement 10/26/23
cephalexin 500 mg capsule 500 mg PO QID #24 caps 10/30/23
furosemide 20 mg tablet 20 mg PO DAILY #30 tabs 10/30/23
miconazole nitrate 2 % topical powder (Miconazorb AF) 1 applic topical BID #85 grams 10/30/23
white petrolatum 42 % topical ointment (Hydrophor) 1 applic topical DAILY #100 grams 10/30/23
Home Medication Changes
Lasix to 20mg daily
Pending Results: No
Total time spent discharging patient (in min): 42
--- NOTE | 2023-10-30 11:07 | CM ---
Addendum entered by Mary Jane Brooks 10/30/23 11:40:
[facility]:
Report: [phone]

Original Note:
BAO spoke with Christine at [facility] several times over the past 2 days. [facility] is requiring SNF stay prior to being admitted to their facility.
[facility] has a bed available for transfer today. BAO spoke with Holly's daughter, Rosangela, who is agreeable to transfer to [facility] with the understanding that insurance is not covering this due to observation status. Rosangela will have a check
when she arrives at [facility] later this afternoon.
DME form (Documentation of Medical Evaluation) required by [facility] and faxed to PCP for completion and provided fax number for [facility] for this form to be sent. Christine will follow up with MD office for completed form.
Ambulance scheduled for 2pm pecan picker for transfer to [facility].
Plan: SNF transfer with plan to admit to [facility] next week. Daughter aware of plans and agreeable to same.
PCP: Broderick HUNT
Pharmacy: [facility] in [place]
--- NOTE | 2023-10-30 12:04 | PTCARENOTE ---
Report called to [facility]. Ambulance diamond picker scheduled at 1300 this afternoon.
[2023-10-30 12:27] LABS: Glucose - Point of Care 232 mg/dl (70-99)
[2023-10-30 13:00] VITALS: BP 140/76
--- NOTE | 2023-10-30 13:26 | PTCARENOTE ---
Patient left via ambulance to [facility].
== END 2023-10-30 13:18 ==
LOC: 4 EAST ACU 20:23
PROVIDERS: Physician Assistant; Physician Assistant Medical; ADMITTING PHYSICIAN Internal Medicine; ATTENDING PHYSICIAN Internal Medicine; EMERGENCY PHYSICIAN Emergency Medicine; FAMILY PHYSICIAN Internal Medicine Geriatric Medicine
DX: L03.116 Cellulitis of left lower limb (principal); R26.2 Difficulty in walking, not elsewhere classified; I89.0 Lymphedema, not elsewhere classified; R41.82 Altered mental status, unspecified; G30.9 Alzheimer's disease, unspecified; R53.81 Other malaise; F02.80 Dementia in other diseases classified elsewhere, unspecified severity, without behavioral disturbance, psychotic disturbance, mood disturbance, and anxiety; M19.90 Unspecified osteoarthritis, unspecified site; N18.31 Chronic kidney disease, stage 3a; D63.1 Anemia in chronic kidney disease; I12.9 Hypertensive chronic kidney disease with stage 1 through stage 4 chronic kidney disease, or unspecified chronic kidney disease; E11.22 Type 2 diabetes mellitus with diabetic chronic kidney disease; Z90.49 Acquired absence of other specified parts of digestive tract; Z96.643 Presence of artificial hip joint, bilateral; Z96.653 Presence of artificial knee joint, bilateral; Z82.49 Family history of ischemic heart disease and other diseases of the circulatory system; Z66 Do not resuscitate; Z88.5 Allergy status to narcotic agent; Z79.84 Long term (current) use of oral hypoglycemic drugs
CPT/HCPCS: 73564; 80048; 80053; 81003; 82962; 85025; 85027; 87070; 97110; 97116; 97162; 97166; 97535; 99285; G0378

== ENCOUNTER 2023-11-17 17:01 | Emergency (ER) | payer MEDICARE, BC, SELFPAY ==
[2023-11-17 17:08] VITALS: BP 168/60
[2023-11-17 17:26] LABS: Glucose - Point of Care 124 mg/dl (70-99)
[2023-11-17 17:35] LABS: % Basophils 0.9 % (0-2); % Eosinophils 2.8 % (0-6); % Immature Granulocytes 0.8 % (0-0.5); % Lymphocytes 20.8 % (20.5-51.1); % Monocytes 9.9 % (1.7-9.3); % Neutrophils 64.8 % (42.2-75.2); Absolute Basophils 0.1 10^3/uL (0-0.2); Absolute Eosinophils 0.2 10^3/uL (0-0.7); Absolute Immature Granulocytes 0.1 10^3/uL (0-0.05); Absolute Lymphocytes 1.4 10^3/uL (1.2-3.4); Absolute Monocytes 0.6 10^3/uL (0.1-0.6); Absolute Neutrophils 4.2 10^3/uL (1.4-6.5); Mean Corp Hgb Conc. 32.4 g/dL (33.0-37.0); Mean Corpuscular Hgb 28.6 pg (27.0-31.0); Mean Corpuscular Volume 88.5 fL (81.0-99.0); Mean Platelet Volume 9.7 fL (7.4-10.4); Nucleated Red Blood Cells % 0 %; Platelet Count 281 10^3/uL (130-400); Red Blood Cell Count 3.84 10^6/uL (4.20-5.40); Red Cell Dist. Width 13.4 % (11.5-14.5); White Blood Cell Count 6.5 10^3/uL (4.8-10.8)
[2023-11-17 18:00] VITALS: BP 161/60
[2023-11-17] MEDS: DILAUDID 0.25 MG IV (18:03)
[2023-11-17] MEDS: ZOFRAN 4 MG IV (18:05)
[2023-11-17 18:14] LABS: ALT (SGPT) 18 U/L (0-35); AST (SGOT) 23 U/L (14-36); Albumin 3.8 g/dl (3.5-5.0); Alkaline Phosphatase 88 U/L (38-126); Blood Urea Nitrogen 26 mg/dl (7-17); Calcium 10.2 mg/dl (8.4-10.2); Carbon Dioxide 32 mmol/L (22-30); Chloride 103 mmol/L (98-107); Glucose 128 mg/dl (70-99); Potassium 5.1 mmol/L (3.5-5.1); Sodium 139 mmol/L (135-145); Total Bilirubin 0.3 mg/dl (0.2-1.3); Total Protein 6.2 g/dl (6.3-8.2); eGFR 49.86
[2023-11-17 18:53] VITALS: BP 173/57
[2023-11-17 22:51] VITALS: BP 152/81
[2023-11-17 23:00] VITALS: BP 164/69
--- NOTE | 2023-11-17 23:15 | ED.MUSCINJ ---
HPI-Injury
General
Chief Complaint: Musculo-Skeletal Complaint
Source: patient, ambulance crew and half-way
Exam Limitations: none
Time Seen by Provider: 11/17/23 17:49
Nursing documentation reviewed up to this point in time: agreed with
History of Present Illness-Injury
Is this injury a work related problem?: No
Is pt an associate of [facility]/Supply?: No
Initial Injury comments:
[place] to [place] from [place] s/p fall. Fall heard by staff. No LOC. She reports pain to right hip. Brought to ED via EMS. Injury occurred just [employer]
Past History
Past History
ED Past Medical History: HTN, IDDM and Other (Dementia, ); Negative Arrthythmia
ED Past Surgical History: Cholecystectomy, (X 3), Orthopedic (Right and left hip replacement, Left and right knee replacement,) and Tonsilectomy
Social History
Tobacco: Non-smoker
Alcohol: None
Drug: None
Personal:
Living: with family
Employment: Retired
Family History
Family History: Hypertension
Review of Systems
Review of Systems
Allergies reviewed?: Yes
All Other Systems: ROS reviewed and negative except as documented in HPI and ROS
Constitutional: Reports no symptoms
Respiratory: Reports no symptoms
Cardiac: Reports no symptoms
ABD/GI: Reports no symptoms
: Reports no symptoms
Musculoskeletal: Reports joint pain (right hip pain)
Skin: Reports no symptoms
Neurological: Reports no symptoms
Psychiatric: Reports no symptoms
Musculoskeletal Injury Exam
Musculoskeletal Injury Exam
Right Hip:
Pain with Movement?: Moderate
Tender to palpation?: Moderate
Soft tissue swelling?: None
External deformity and angulation?: None
Joint effusion?: None
Contusion?: None
Hematoma-local bleeding into tissue?: None
Strain- Sprain- Tear (Connective tissue injury)?: Moderate
Crepitus with movement?: No
Joint instability?: No
Malalignment/deformity?: No
Range of motion: Limited
Distal skin color and temperature: normal-warm & good color
Capillary Refill: normal
Normal distal neurovascular exam?: Yes
Peripheral Pulses: posterior tibial (left): 3+, posterior tibial (right): 3+, dorsalis pedis (left): 3+ and dorsalis pedis (right): 3+
Phy Exam
General Physical Exam
General Presentation: well appearing and mild distress
General age: appears stated age
General Skin: warm
General Habitus: normal
General Mental: alert
Cardiovascular Exam
Cardiovascular Exam: regular rate/rhythm
Pulmonary Exam
Pulmonary Exam: lungs clear, no respiratory distress and chest non tender
Gastrointestinal Exam
Gastrointestinal Exam: non tender and soft
Musculoskeletal Exam
Musculoskeletal Exam: neuro vasc intact
Skin Exam
Skin Exam: normal color, warm/dry and no rash
Psychiatric Exam
Psychiatric Exam: normal mood/affect
Injury Course
Orders/Labs/Results
Orders:
Orders
11/17/23 17:22
CMP [Comprehensive Metabolic Panel] Urgent
Complete Blood Count/With Diff Urgent
11/17/23 17:55
Hip, Right 2-3 Views [CR Hip - RT w/wo Pel 2-3 Vw*] Urgent
Comment:
Reason For Exam: fall
Include a pelvis x-ray?: Yes
11/17/23 17:57
HYDROmorphone [Dilaudid] 0.25 mg IV NOW STA
Ondansetron Injectable [Zofran] 4 mg IV NOW STA
Abnormal Lab Results
11/17/23 11/17/23
17:22 17:25
RBC 3.84 L 10^6/uL
(4.20-5.40)
Hgb 11.0 L g/dL
(12.0-16.0)
Hct 34.0 L %
(37.0-47.0)
MCHC 32.4 L g/dL
(33.0-37.0)
Abs Immat Gran (auto) 0.1 H 10^3/uL
(0-0.05)
Immature Gran % 0.8 H %
(0-0.5)
Monocytes % 9.9 H %
(1.7-9.3)
Carbon Dioxide 32 H mmol/L
(22-30)
BUN 26 H mg/dl
(7-17)
Creatinine 1.1 H mg/dL
(0.6-1.0)
Glucose 128 H mg/dl
(70-99)
Total Protein 6.2 L g/dl
(6.3-8.2)
POC Glucose 124 H mg/dl
(70-99)
11/17/23 17:22
11/17/23 17:22
*Radiology
Radiology exam reviewed: radiology read reviewed
*Pulse Oximetry
Patient hypoxic: no
*Critical Care Note
Total Time (30-74mins, 75-104mins- exclusive of procedures): Not Applicable
Update Note
Update Note:
Able to ambulate in dept with walker and staff without difficulty. No evidence of fx on xray. WIll discharge back to [place], followu with PCP in 1-2 day.
ED Attending Note
-
Portions of this chart may have been created with voice recognition software.� Occasional wrong word or��sound alike� substitutions may have occurred due to the inherent limitations of voice recognition software.
Discharge Plan
Departure
Patient Disposition: Home (Routine Discharge)
Date of Disposition: 11/17/23
Time of Disposition: 19:11
Patient with high blood pressure during this ER visit?: No
Condition: Good
Covid-19: Not Applicable
Discharge Problem:
Acute hip pain
Instructions: Contusion (DC), Sprain (DC), Using Cold for Pain
Prescriptions:
No Action
glipizide 10 MG tablet extended release 24hr
10 mg PO BID
lisinopril 40 MG tablet
40 mg PO DAILY
carvedilol 6.25 mg tablet
6.25 mg PO QPM
Januvia 50 mg tablet
50 mg PO DAILY
cyanocobalamin (vitamin B-12) 5,000 mcg Capsule
5,000 mcg PO SUWE
furosemide 20 mg Tablet
20 mg PO DAILY Qty: 30 0RF
acetaminophen 325 mg Tablet
650 mg PO Q6HPRN PRN (Reason: mild pain/temp>100)
carvedilol 12.5 mg tablet
12.5 mg PO DAILY
amlodipine 2.5 mg tablet
2.5 mg PO HS
cholecalciferol (vitamin D3) 25 mcg (1,000 unit) Tablet
25 mcg PO DAILY
Referrals:
Broderick Gomes MD [Family Provider] - Follow up in 2-3 days
Interventions
Interventions:
*Risk Screen - Suicide Last Done: 11/17/23 17:23
*General Assessment Last Done: 11/17/23 17:23
*Neglect/Abuse Screening Last Done: 11/17/23 17:23
*ED COVID-19 Vaccine History Last Done: 11/17/23 17:23
ED-Musculoskeletal Assessment Last Done: 11/17/23 17:23
Discharge Date and Time
Print Language: SERBIAN
[2023-11-18] VITALS: BP 143/58
== END 2023-11-18 00:24 | disposition home or self-care (01) ==
LOC: EMR 17:01
PROVIDERS: EMERGENCY PHYSICIAN Student in an Organized Health Care Education/Training Program; FAMILY PHYSICIAN Internal Medicine Geriatric Medicine
DX: M25.551 Pain in right hip (principal); W19.XXXA Unspecified fall, initial encounter; I10 Essential (primary) hypertension; E11.9 Type 2 diabetes mellitus without complications; F03.90 Unspecified dementia, unspecified severity, without behavioral disturbance, psychotic disturbance, mood disturbance, and anxiety; Z82.49 Family history of ischemic heart disease and other diseases of the circulatory system; Z90.49 Acquired absence of other specified parts of digestive tract; Z96.643 Presence of artificial hip joint, bilateral; Z96.651 Presence of right artificial knee joint
CPT/HCPCS: 99283; 96374; 96375; 73502; 80053; 82962; 85025

== ENCOUNTER 2024-01-02 09:51 | Emergency (ER) | payer MEDICARE, BC, SELFPAY ==
--- NOTE | 2024-01-02 09:59 | ED.GENMED ---
History of Present Illness
General
Chief Complaint: Fall
Source: patient
Exam Limitations: dementia
Time Seen by Provider: 01/02/24 09:54
History of Present Illness
History of Present Illness:
See MDM
Past History
Past History
ED Past Medical History: HTN, IDDM and Other (Dementia, ); Negative Arrthythmia
ED Past Surgical History: Cholecystectomy, (X 3), Orthopedic (Right and left hip replacement, Left and right knee replacement,) and Tonsilectomy
Social History
Tobacco: Non-smoker
Alcohol: None
Drug: None
Personal:
Living: with family
Employment: Retired
Family History
Family History: Hypertension
Phy Exam
Physical Exam
Physical Exam:
See MDM
Course
Orders/Labs/Results
Orders:
Orders
01/02/24 09:57
CT Head W/o Iv Contrast Urgent
Comment:
Reason For Exam: fall
Vital Signs
Initial and Last Documented VS:
Initial Vital Signs
Pulse Resp BP Pulse Ox
67 16 134/42 95
01/02/24 10:00 01/02/24 10:00 01/02/24 10:00 01/02/24 10:00
Last Documented Vital Signs
Temp Pulse Resp BP Pulse Ox
97.6 F 70 14 134/42 97
01/02/24 10:17 01/02/24 10:30 01/02/24 10:30 01/02/24 10:17 01/02/24 10:30
MDM/Problems Addressed
Differential Diagnosis Includes:
HPI and MDM Narrative:
83-year-old female presenting for evaluation after a fall. Patient states she slipped in the shower. EMS stating that she was sent in for evaluation of right elbow pain. Patient currently denies any elbow pain. She is unsure if she hit her head.
Patient is sitting in bed comfortably in no acute distress. Given age and fall, will obtain CT head. Otherwise, no traumatic injury noted
Physical exam
General: Well appearing and non-toxic
HEENT: protecting airway
Neck: supple
CV: No evidence of cyanosis
Resp: No accessory muscle use
Abd: Non-distended
Extremities: No deformities. No traumatic injuries noted. All extremities nontender and neurovascular intact. No hip tenderness
Neuro: alert
Psych: Normal affect
Skin: Intact
Problems Addressed including Acute and Chronic Conditions affecting care:
1. Fall
Acuity: acute
Prognosis: stable
Details: Given age and fall, will obtain CT head. Otherwise, no traumatic injury noted
Updates
CT head negative. Patient feels comfortable going home
Differential Diagnosis (but not limited to): Contusion, intracranial hemorrhage, fracture
Testing considered: Elbow x-ray but is nontender on my exam
Drug therapy (if applicable): OTC meds, please see d/c instruction regarding Rx drugs
Amount and/or Complexity of Data Reviewed
Clinical info obtained from: Patient
External data reviewed: N/A
Labs I independently reviewed (but not limited to): N/A
Radiology: The CT scan was personally and independently reviewed. In addition, official CT report reviewed.
Pulse Ox: not hypoxic
EKG independently reviewed: N/A
Director Of Revenue Cycle Management: N/A
Critical Care: N/A
Risk of Complication:
Social Determinants of health: Good social support
Discussed with other providers: N/A
Escalation of Care includes Admit/Obs: After being observed in the Emergency Department, pt stable for discharge.
Occasional wrong word or 'sound a like' substitutions may have occurred due to the inherent limitations of voice recognition software. Read the chart carefully and recognize, using context, where substitutions have occurred.
*Critical Care Note
Total Time (30-74mins, 75-104mins- exclusive of procedures): Not Applicable
ED Attending Note
-
Portions of this chart may have been created with voice recognition software.� Occasional wrong word or��sound alike� substitutions may have occurred due to the inherent limitations of voice recognition software.
Discharge Plan
Departure
Patient Disposition: Home (Routine Discharge)
Date of Disposition: 01/02/24
Time of Disposition: 12:48
Patient with high blood pressure during this ER visit?: No
Discharge Problem:
Fall
Instructions: Preventing falls in adults
Prescriptions:
No Action
glipizide 10 MG tablet extended release 24hr
10 mg PO BID
lisinopril 40 MG tablet
40 mg PO DAILY
carvedilol 6.25 mg tablet
6.25 mg PO QPM
Januvia 50 mg tablet
50 mg PO DAILY
cyanocobalamin (vitamin B-12) 5,000 mcg Capsule
5,000 mcg PO SUWE
furosemide 20 mg Tablet
20 mg PO DAILY Qty: 30 0RF
acetaminophen 325 mg Tablet
650 mg PO Q6HPRN PRN (Reason: mild pain/temp>100)
carvedilol 12.5 mg tablet
12.5 mg PO DAILY
amlodipine 2.5 mg tablet
2.5 mg PO HS
cholecalciferol (vitamin D3) 25 mcg (1,000 unit) Tablet
25 mcg PO DAILY
Referrals:
Broderick Gomes MD [Family Provider] -
Activity Restrictions/Additional Instructions:
Please return for any worsening symptoms.
You may return at any time if you have further concerns.
Please follow up with your doctor at the first available appointment, preferably this week.
Thank you for choosing [facility].
Interventions
Interventions:
*Risk Screen - Suicide Last Done: 01/02/24 10:17
*General Assessment Last Done: 01/02/24 10:17
*Neglect/Abuse Screening Last Done: 01/02/24 10:17
ED- Fall Risk Assessment Last Done: 01/02/24 10:17
*ED COVID-19 Vaccine History Last Done: 01/02/24 10:17
ED-Musculoskeletal Assessment Last Done: 01/02/24 10:17
ED- Neurological Assessment Last Done: 01/02/24 10:17
ED-Skin Assessment Last Done: 01/02/24 10:17
Discharge Date and Time
Print Language: CZECH
[2024-01-02 10:00] VITALS: BP 134/42
[2024-01-02 10:17] VITALS: BP 134/42; BMI 35.9
[2024-01-02 12:58] VITALS: BP 141/85
--- NOTE | 2024-01-02 13:01 | EDRN ---
the pt is resting in stretcher in the lowest position, side rails up x2, call lao within reach, HOB elevated, no s/s of distress, VS WNL, the pt has no c/o pain at this time, the pt will be discharged, transport being set up for the pt, the pts
daughter has been updated on the pts plan of care, will continue to monitor the pt closely
== END 2024-01-02 13:47 ==
LOC: EMR 09:51
PROVIDERS: EMERGENCY PHYSICIAN Student in an Organized Health Care Education/Training Program; FAMILY PHYSICIAN Internal Medicine Geriatric Medicine
DX: Z04.3 Encounter for examination and observation following other accident (principal); I10 Essential (primary) hypertension; E11.9 Type 2 diabetes mellitus without complications; F03.90 Unspecified dementia, unspecified severity, without behavioral disturbance, psychotic disturbance, mood disturbance, and anxiety; Z90.49 Acquired absence of other specified parts of digestive tract; Z79.84 Long term (current) use of oral hypoglycemic drugs
CPT/HCPCS: 99284; 70450

== ENCOUNTER 2024-02-04 17:19 | Emergency (ER) | payer MEDICARE, BC, SELFPAY ==
[2024-02-04 17:23] VITALS: BP 132/55
[2024-02-04 18:00] VITALS: BP 133/50
--- NOTE | 2024-02-04 18:11 | ED.GENMED ---
History of Present Illness
General
Chief Complaint: Fall
Source: other (Nursing)
Exam Limitations: dementia
Time Seen by Provider: 02/04/24 17:56
History of Present Illness
History of Present Illness:
This is a 83 year old female that comes in by ambulance with c/o fall. Told by nursing patient was walking with her daughter and the daughter turned and the patient fell. States that she heard her fall but did not see the fall. Told that there was
no LOC. Patient has no complaints. Called and spoke with Daughter Evelyn. States that they were going down the [place] to dinner and she needed to use the BR. States that she turned around as she was using her walker and she was 2 steps behind her
daughter. Daughter states that she normally does well with the walker but she screamed and when she turned around the patient was 'Wilting' to the ground and fell on her buttocks and hit her head on the left sided on the wall. Denies any LOC. Denies
any fever, chills, chest pain, SOB, abd pain, nausea, vomiting, diarrhea, Headache, dizziness.
Past History
Past History
ED Past Medical History: HTN, IDDM and Other (Dementia, ); Negative Arrthythmia
ED Past Surgical History: Cholecystectomy, (X 3), Orthopedic (Right and left hip replacement, Left and right knee replacement,) and Tonsilectomy
Social History
Tobacco: Non-smoker
Alcohol: None
Drug: None
Personal:
Living: [facility]
Employment: Retired
Family History
Family History: Hypertension
Review of Systems
Review of Systems
Unable to obtain full review of systems at this time due to: dementia
Other source history: family
All Other Systems: ROS reviewed and negative except as documented in HPI and ROS
Constitutional: Reports no symptoms; Denies fever or chills
EENT: Reports no symptoms
Respiratory: Reports no symptoms; Denies cough or trouble breathing
Cardiac: Reports no symptoms; Denies chest pain
ABD/GI: Reports no symptoms; Denies abdominal pain, nausea, vomiting or diarrhea
: Reports no symptoms
Musculoskeletal: Reports no symptoms
Skin: Reports no symptoms
Neurological: Reports no symptoms; Denies dizzy or headache
Psychiatric: Reports no symptoms
Phy Exam
General Physical Exam
General Presentation: well appearing and no apparent distress
General age: appears stated age
General Skin: warm and dry
General Habitus: elderly
General Mental: usual mental status
General Hydration: appears well hydrated
ENT Exam
ENT Exam: TM's normal, pharynx normal and neck supple
Eye Exam
Eye Exam: EOMI
Cardiovascular Exam
Cardiovascular Exam: regular rate/rhythm and normal peripheral pulses
Pulmonary Exam
Pulmonary Exam: lungs clear, no respiratory distress, no rales, chest non tender, no crackles, no rhonchi, no wheezing and no cough
Gastrointestinal Exam
Gastrointestinal Exam: normal bowel sounds, non tender, soft, no organomegaly, no pulsatile mass and non distended
Musculoskeletal Exam
Musculoskeletal Exam: full ROM, edema (+2 edema of the feet and lower legs) and other (Negative for any cervical neck or spinal tenderness. patient can cross over, abduct arms, flex elbows, move wrist and finger. Negative for discomfort with knee
flexion. )
Skin Exam
Skin Exam: normal color, warm/dry, no petechia and redness (Of the left lower leg with increased warmth. Open wound noted on the lateral aspect)
Psychiatric Exam
Psychiatric Exam: normal mood/affect
Course
Orders/Labs/Results
Orders:
Orders
02/04/24 18:11
CT Head W/o Iv Contrast Urgent
Comment:
Reason For Exam: unwitness fall
02/04/24 18:29
Cephalexin Monohydrate [Keflex] 500 mg PO NOW STA
Vital Signs
Initial and Last Documented VS:
Initial Vital Signs
Temp Pulse Resp BP Pulse Ox
97.5 F 73 17 132/55 97
02/04/24 17:23 02/04/24 17:23 02/04/24 17:23 02/04/24 17:23 02/04/24 17:23
Last Documented Vital Signs
Temp Pulse Resp BP Pulse Ox
97.5 F 74 24 140/58 97
02/04/24 17:23 02/04/24 20:30 02/04/24 20:30 02/04/24 20:07 02/04/24 20:34
MDM/Problems Addressed
Differential Diagnosis Includes:
Accidental fall.
MDM/Problems Addressed:
This is a 83 year old female that comes in with c/o fall. Called and spoke with daughter. States that the patient had turned to go back to the BR and the daughter was a few steps in front of her when she heard her yell and turned around. States that
the pain just was 'wilting' and laned on her buttocks and fell to the left side hitting her head on the wall. Denies any LOC.
Discussed with daughter about patient left lower leg. States that the redness had increase Since Thursday. Patient was seen by the PCP yesterday and a culture was done, but she was not started on antibiotics. Explained that the lower leg has
increased warm and is very red. She is in agreement to starting patient on antibiotics as patient has had cellulitis twice in the past and been hospitalized and feels that this looks the exact same.
Will get CT of the head.
CT of the head is negative. Will discharge on antibiotics back to the [facility].
Chronic conditions affecting care:
Dementia
Acute Exacerbation and/or Progression of Chronic Illness:
NA
*Radiology
Radiology exam reviewed: radiology read reviewed (CT-No acute intracranial abnormality noted. 3mm soft tissue hematoma along the left temporal scalp)
*Pulse Oximetry
Patient hypoxic: no
*EKG
Interpreted by ED Provider?: NA
Rate: EKG- N/A
*Weatherization Director Interpretation
Rate: normal
Heart Rate: 78
*Critical Care Note
Total Time (30-74mins, 75-104mins- exclusive of procedures): Not Applicable
ED Attending Note
-
Portions of this chart may have been created with voice recognition software.� Occasional wrong word or��sound alike� substitutions may have occurred due to the inherent limitations of voice recognition software.
Discharge Plan
Departure
Patient Disposition: Longterm/SNF
Date of Disposition: 02/04/24
Time of Disposition: 20:42
Patient with high blood pressure during this ER visit?: Yes
Condition: Good
Covid-19: Not Applicable
Discharge Problem:
Cellulitis of left lower extremity, Accidental fall
Instructions: Preventing falls in adults, Cellulitis (Skin Infection), Adult ED, BLOOD PRESSURE
Prescriptions:
New
cephalexin 500 mg capsule
500 mg PO Q6H 10 Days Qty: 40 0RF
No Action
glipizide 10 MG tablet extended release 24hr
10 mg PO BID
lisinopril 40 MG tablet
40 mg PO DAILY
carvedilol 6.25 mg tablet
6.25 mg PO QPM
Januvia 50 mg tablet
50 mg PO DAILY
cyanocobalamin (vitamin B-12) 5,000 mcg Capsule
5,000 mcg PO SUWE
furosemide 20 mg Tablet
20 mg PO DAILY Qty: 30 0RF
acetaminophen 325 mg Tablet
650 mg PO Q6HPRN PRN (Reason: mild pain/temp>100)
carvedilol 12.5 mg tablet
12.5 mg PO DAILY
amlodipine 2.5 mg tablet
2.5 mg PO HS
cholecalciferol (vitamin D3) 25 mcg (1,000 unit) Tablet
25 mcg PO DAILY
Referrals:
Broderick Gomes MD [Family Provider] - Follow up in 2-3 days
Activity Restrictions/Additional Instructions:
As discussed with patient daughter. Patient has been started on antibiotics for the left lower leg cellulitis. A prescription has been sent back with her papers. The CT of the head is normal. Please increase patient water intake to 8-8oz glasses
daily. Follow up with the family doctor in 2-3 days for recheck. IF PATIENT HAS FEVER, INCREASED REDNESS OF THE LOWER LEG, OR ANY OTHER CONCERNS PLEASE RETURN TO THE EMERGENCY ROOM
Interventions
Interventions:
*Risk Screen - Suicide Last Done: 02/04/24 17:23
*General Assessment Last Done: 02/04/24 17:23
*Neglect/Abuse Screening Last Done: 02/04/24 17:23
ED- Fall Risk Assessment Last Done: 02/04/24 17:23
*ED COVID-19 Vaccine History Last Done: 02/04/24 17:23
ED-Musculoskeletal Assessment Last Done: 02/04/24 17:31
ED- Neurological Assessment Last Done: 02/04/24 17:30
ED-Skin Assessment Last Done: 02/04/24 17:31
Discharge Date and Time
Print Language: FILIPINO
[2024-02-04] MEDS: KEFLEX 500 MG PO (18:32)
[2024-02-04 19:00] VITALS: BP 148/53
[2024-02-04 20:07] VITALS: BP 140/58
[2024-02-04 21:04] VITALS: BP 148/49
[2024-02-04 23:06] VITALS: BP 140/43
== END 2024-02-04 23:11 ==
LOC: EMR 17:19
PROVIDERS: EMERGENCY PHYSICIAN Emergency Medicine; FAMILY PHYSICIAN Internal Medicine Geriatric Medicine
DX: L03.116 Cellulitis of left lower limb (principal); W22.01XA Walked into wall, initial encounter; I10 Essential (primary) hypertension; E11.9 Type 2 diabetes mellitus without complications; F03.90 Unspecified dementia, unspecified severity, without behavioral disturbance, psychotic disturbance, mood disturbance, and anxiety; Z82.49 Family history of ischemic heart disease and other diseases of the circulatory system; Z90.49 Acquired absence of other specified parts of digestive tract; Z96.651 Presence of right artificial knee joint
CPT/HCPCS: 99284; 70450

== ENCOUNTER → 2024-02-12 10:51 | Outpatient (REF) | payer MEDICARE, BC, SELFPAY | LOC: RAD 10:51 | PROVIDERS: ATTENDING PHYSICIAN Nurse Practitioner Family | DX: R79.89 Other specified abnormal findings of blood chemistry (principal); R60.0 Localized edema | CPT/HCPCS: 93971 ==

== ENCOUNTER → 2024-03-30 13:04 | Outpatient (REF) | payer MEDICARE, BC, SELFPAY | LOC: RAD 13:04 | PROVIDERS: ATTENDING PHYSICIAN Nurse Practitioner Family | DX: I89.0 Lymphedema, not elsewhere classified (principal); L97.921 Non-pressure chronic ulcer of unspecified part of left lower leg limited to breakdown of skin; E11.9 Type 2 diabetes mellitus without complications; R60.9 Edema, unspecified | CPT/HCPCS: 93922; 93925; 93970 ==

== ENCOUNTER 2024-06-22 10:09 | Emergency (ER) | payer MEDICARE, SELFPAY ==
[2024-06-22 10:13] VITALS: BP 154/66
--- NOTE | 2024-06-22 12:02 | ED.GENMED ---
History of Present Illness
General
Chief Complaint: Fall
Source: residential
Exam Limitations: dementia
Time Seen by Provider: 06/22/24 10:22
Nursing documentation reviewed up to this point in time: agreed with
History of Present Illness
History of Present Illness:
Patient is a 3-year-old female with past medical history of Alzheimer/dementia sent from [facility] after a fall. Apparently patient was sitting in the common area and found her on the carpeted floor. Patient has baseline dementia. She
arrives awake alert she is pleasantly confused she has no complaints that she does not recall what happened. She is moving all extremities. There is no obvious injury on exam.
Past History
Past History
ED Past Medical History: HTN, IDDM and Other (Dementia, ); Negative Arrthythmia
ED Past Surgical History: Cholecystectomy, (X 3), Orthopedic (Right and left hip replacement, Left and right knee replacement,) and Tonsilectomy
Social History
Tobacco: Non-smoker
Alcohol: None
Drug: None
Personal:
Living: residential
Employment: Retired
Family History
Family History: Hypertension
Review of Systems
Review of Systems
Allergies reviewed?: Yes
Unable to obtain full review of systems at this time due to: dementia
Other source history: residential
All Other Systems: ROS reviewed and negative except as documented in HPI and ROS
Phy Exam
General Physical Exam
General Presentation: no apparent distress
General age: appears stated age
General Skin: warm and dry
General Habitus: elderly
General Mental: confused (baseline )
General Hydration: appears well hydrated
Cardiovascular Exam
Cardiovascular Exam: regular rate/rhythm, no murmur and normal peripheral pulses
Pulmonary Exam
Pulmonary Exam: lungs clear and no respiratory distress
Neurological Exam
Neurological Exam: alert and other (Patient follows commands)
Musculoskeletal Exam
Musculoskeletal Exam: full ROM and other (No obvious head injury on exam no bony tenderness cervical spine full range of motion to upper and lower extremities; chronic b/l leg swelling )
Skin Exam
Skin Exam: normal color and warm/dry
Psychiatric Exam
Psychiatric Exam: normal mood/affect
Course
Orders/Labs/Results
Orders:
Orders
06/22/24 10:35
CT Head W/o Iv Contrast Urgent
Comment:
Reason For Exam: trauma
06/22/24 10:41
CT Cervical Spine W/o Iv Contr Urgent
Comment:
Reason For Exam: trauma
Vital Signs
Initial and Last Documented VS:
Initial Vital Signs
Temp Pulse Resp BP Pulse Ox
97.5 F 58 16 154/66 100
06/22/24 10:13 06/22/24 10:13 06/22/24 10:13 06/22/24 10:13 06/22/24 10:13
Last Documented Vital Signs
Temp Pulse Resp BP Pulse Ox
97.5 F 58 16 154/66 100
06/22/24 10:13 06/22/24 10:13 06/22/24 10:13 06/22/24 10:13 06/22/24 10:15
MDM/Problems Addressed
Differential Diagnosis Includes:
Not limited to fall and head injury
MDM/Problems Addressed:
Patient is an 83-year-old female with Alzheimer's sent for unwitnessed fall. She is not on blood thinners however CT head and cervical spine were done and negative. She has no complaint she is pleasantly confused there is no obvious injury on exam
and she moves all extremities without difficulty. Stable for discharge back to residential.
*Radiology
Radiology exam reviewed: radiology read reviewed
*Pulse Oximetry
Patient hypoxic: no
*Critical Care Note
Total Time (30-74mins, 75-104mins- exclusive of procedures): Not Applicable
ED Attending Note
-
Portions of this chart may have been created with voice recognition software.� Occasional wrong word or��sound alike� substitutions may have occurred due to the inherent limitations of voice recognition software.
Discharge Plan
Departure
Patient Disposition: [facility]/SNF
Date of Disposition: 06/22/24
Time of Disposition: 12:09
Patient with high blood pressure during this ER visit?: Yes
Condition: Fair
Covid-19: Not Applicable
Discharge Problem:
Fall
Instructions: Preventing falls in adults, BLOOD PRESSURE
Prescriptions:
No Action
glipizide 10 MG tablet extended release 24hr
10 mg PO DAILY
lisinopril 40 MG tablet
40 mg PO DAILY
carvedilol 6.25 mg tablet
6.25 mg PO QPM
acetaminophen 325 mg Tablet
650 mg PO Q6HPRN PRN (Reason: mild pain/temp>100)
carvedilol 12.5 mg tablet
12.5 mg PO DAILY
trazodone 50 mg Tablet
50 mg PO HS
acetaminophen 500 mg Tablet
1,000 mg PO TID
furosemide 20 mg Tablet
20 mg PO DAILY
nystatin 100,000 unit/gram Powder
1 applic TOPICAL BID
Rx Instructions:
groin, bilateral breast
cholecalciferol (vitamin D3) [Vitamin D3] 25 mcg (1,000 unit) Tablet
25 mcg PO DAILY
Januvia 100 mg Tablet
100 mg PO DAILY
Referrals:
Broderick Gomes MD [Family Provider] -
Activity Restrictions/Additional Instructions:
Patient was evaluated in the ER for fall. Patient had no obvious injuries CAT scan of head and cervical spine were done and negative.
Interventions
Interventions:
*Risk Screen - Suicide Last Done: 06/22/24 10:15
*General Assessment Last Done: 06/22/24 10:15
*Neglect/Abuse Screening Last Done: 06/22/24 10:15
*ED- Fall Risk Assessment Last Done: 06/22/24 10:15
*ED COVID-19 Vaccine History Last Done: 06/22/24 10:15
ED-Musculoskeletal Assessment Last Done: 06/22/24 10:15
ED- Neurological Assessment Last Done: 06/22/24 10:15
ED-Skin Assessment Last Done: 06/22/24 10:15
Discharge Date and Time
Print Language: BENGALI
[2024-06-22 12:17] VITALS: BP 140/106
[2024-06-22 13:00] VITALS: BP 134/61
[2024-06-22 14:00] VITALS: BP 162/61
== END 2024-06-22 14:08 ==
LOC: EMR 10:09
PROVIDERS: EMERGENCY PHYSICIAN Emergency Medicine; FAMILY PHYSICIAN Internal Medicine Geriatric Medicine
DX: S09.90XA Unspecified injury of head, initial encounter (principal); W19.XXXA Unspecified fall, initial encounter; I10 Essential (primary) hypertension; E11.9 Type 2 diabetes mellitus without complications; G30.9 Alzheimer's disease, unspecified; F02.80 Dementia in other diseases classified elsewhere, unspecified severity, without behavioral disturbance, psychotic disturbance, mood disturbance, and anxiety; Z82.49 Family history of ischemic heart disease and other diseases of the circulatory system; Z90.49 Acquired absence of other specified parts of digestive tract; Z96.651 Presence of right artificial knee joint
CPT/HCPCS: 99284; 70450; 72125

== ENCOUNTER 2024-07-13 05:58 | Emergency (ER) | payer MEDICARE, SELFPAY ==
[2024-07-13] VITALS (7 sets, daily range): BP systolic 121–158; BP diastolic 45–68
--- NOTE | 2024-07-13 06:53 | ED.GENMED ---
History of Present Illness
General
Chief Complaint: Fall
Time Seen by Provider: 07/13/24 06:11
History of Present Illness
History of Present Illness:
83-year-old female with history of dementia presenting for unwitnessed fall. Patient reportedly slid out of her chair at her facility, unwitnessed. Patient very poor historian given her underlying dementia. Patient arrives without acute
complaints. Patient with history of frequent falls. No additional history obtained at this time
Past History
Past History
ED Past Medical History: HTN, IDDM and Other (Dementia, ); Negative Arrthythmia
ED Past Surgical History: Cholecystectomy, (X 3), Orthopedic (Right and left hip replacement, Left and right knee replacement,) and Tonsilectomy
Social History
Tobacco: Non-smoker
Alcohol: None
Drug: None
Personal:
Living: [facility]
Employment: Retired
Family History
Family History: Hypertension
Phy Exam
Physical Exam
Physical Exam:
General: Well-appearing, no clinical signs of dehydration
HEENT: protecting airway
Neck: appears supple, no midline tenderness
CV: Normal heart rate, regular rhythm, no evidence of cyanosis
Resp: No accessory muscle use, no increased work of breathing, lungs clear to auscultation bilaterally
Abd: Soft and non-distended, no tenderness to palpation
Extremities: No deformities. Chronic appearing lower extremity swelling/lymphedema with chronic skin changes bilaterally. No asymmetry
Neuro: alert, disoriented no focal neurologic deficit
: deferred
Rectal: deferred
Psych: Normal affect
Skin: Intact
Course
Orders/Labs/Results
Orders:
Orders
07/13/24 06:34
CT Head W/o Iv Contrast Urgent
Comment:
Reason For Exam: fall, unwitnessed
Vital Signs
Initial and Last Documented VS:
Initial Vital Signs
Pulse Resp BP Pulse Ox
62 18 158/58 99
07/13/24 06:01 07/13/24 06:01 07/13/24 06:01 07/13/24 06:01
Last Documented Vital Signs
Temp Pulse Resp BP Pulse Ox
97.3 F 57 16 158/58 95
07/13/24 06:18 07/13/24 06:40 07/13/24 06:40 07/13/24 06:04 07/13/24 06:45
MDM/Problems Addressed
MDM/Problems Addressed:
83-year-old female with history of dementia presenting for unwitnessed fall out of her chair. Vital signs on arrival are significant for mild hypertension.
On exam, patient is well-appearing, no acute distress. No physical signs of trauma. Patient limited story and given her underlying dementia. Given unclear mechanism, will screen with CT brain. No cervical neck tenderness..
07:40 - CT brain without acute intracranial normality. At this time feel stable for discharge. Will provide transportation back to facility. Return precautions discussed
*Critical Care Note
Total Time (30-74mins, 75-104mins- exclusive of procedures): Not Applicable
ED Attending Note
-
Portions of this chart may have been created with voice recognition software.� Occasional wrong word or��sound alike� substitutions may have occurred due to the inherent limitations of voice recognition software.
Discharge Plan
Departure
Prescriptions:
No Action
glipizide 10 MG tablet extended release 24hr
10 mg PO DAILY
lisinopril 40 MG tablet
40 mg PO DAILY
carvedilol 6.25 mg tablet
6.25 mg PO QPM
acetaminophen 325 mg Tablet
650 mg PO Q6HPRN PRN (Reason: mild pain/temp>100)
carvedilol 12.5 mg tablet
12.5 mg PO DAILY
trazodone 50 mg Tablet
50 mg PO HS
acetaminophen 500 mg Tablet
1,000 mg PO TID
furosemide 20 mg Tablet
20 mg PO DAILY
nystatin 100,000 unit/gram Powder
1 applic TOPICAL BID
Rx Instructions:
groin, bilateral breast
cholecalciferol (vitamin D3) [Vitamin D3] 25 mcg (1,000 unit) Tablet
25 mcg PO DAILY
Januvia 100 mg Tablet
100 mg PO DAILY
Referrals:
UNKNOWN - PT DOES,NOT KNOW [Family Provider] -
Interventions
Interventions:
*Risk Screen - Suicide Last Done: 07/13/24 06:01
*General Assessment Last Done: 07/13/24 06:01
*Neglect/Abuse Screening Last Done: 07/13/24 06:01
*ED- Fall Risk Assessment Last Done: 07/13/24 06:01
*ED COVID-19 Vaccine History Last Done: 07/13/24 06:01
ED-Musculoskeletal Assessment Last Done: 07/13/24 06:12
ED- Neurological Assessment Last Done: 07/13/24 06:12
ED-Skin Assessment Last Done: 07/13/24 06:12
Discharge Date and Time
Print Language: YI
== END 2024-07-13 11:42 | disposition home or self-care (01) ==
LOC: EMR 05:58
PROVIDERS: EMERGENCY PHYSICIAN Student in an Organized Health Care Education/Training Program
DX: Z04.3 Encounter for examination and observation following other accident (principal); W07.XXXA Fall from chair, initial encounter; F03.90 Unspecified dementia, unspecified severity, without behavioral disturbance, psychotic disturbance, mood disturbance, and anxiety; E11.9 Type 2 diabetes mellitus without complications; I10 Essential (primary) hypertension; R29.6 Repeated falls
CPT/HCPCS: 99284; 70450

== ENCOUNTER 2024-08-07 08:25 | Emergency (ER) | payer MEDICARE, BC, SELFPAY ==
[2024-08-07 08:38] VITALS: BP 143/67
--- NOTE | 2024-08-07 08:39 | ED.GENMED ---
History of Present Illness
<Rubén Desouza PA-C - Last Filed: 08/07/24 12:44>
General
Chief Complaint: Swelling
Source: patient
Exam Limitations: none
Time Seen by Provider: 08/07/24 08:31
History of Present Illness
History of Present Illness:
84-year-old female with history of dementia presents via EMS from nursing facility with increased swelling and redness to the legs. Patient cannot provide any history. Upon review of chart, the patient is on furosemide. She has a history of
aub-qgjyoju-olwebevla diabetes as well as dementia. No other additional history obtained at this time
Past History
<Rubén Desouza PA-C - Last Filed: 08/07/24 12:44>
Past History
ED Past Medical History: HTN, IDDM and Other (Dementia, ); Negative Arrthythmia
ED Past Surgical History: Cholecystectomy, (X 3), Orthopedic (Right and left hip replacement, Left and right knee replacement,) and Tonsilectomy
Social History
Tobacco: Non-smoker
Alcohol: None
Drug: None
Personal:
Living: long-term
Employment: Retired
Family History
Family History: Hypertension
Phy Exam
<Rubén Desouza PA-C - Last Filed: 08/07/24 12:44>
Physical Exam
Physical Exam:
General: Well-developed female no acute respiratory distress
HEENT: Normocephalic atraumatic
Heart: Regular rate and rhythm
Lungs clear no obvious rales
Abdomen is soft deep palpation does not elicit any tenderness
Extremities: Significant pitting edema bilateral lower extremities spreading to the knee. There is overlying erythematous hue to both lower extremities as well no cyanosis
Neurologic exam: Makes eye contact alert states he is cold no obvious facial asymmetry
Scores
<Rubén Desouza PA-C - Last Filed: 08/07/24 12:44>
Heart Failure Risk
Heart Failure Risk Score: Not Applicable
Course
<Rubén Desouza PA-C - Last Filed: 08/07/24 12:44>
Orders/Labs/Results
Orders:
Orders
08/07/24 08:40
CR Chest Portable - 1 View Urgent
Comment:
Reason For Exam: sob
Reason Study Needs to be Portable: Unable to Transport
08/07/24 08:54
Complete Blood Count/With Diff Urgent
Comprehensive Metabolic Panel Urgent
NT-proBNP Urgent
08/07/24 10:31
Venous Doppler Lwr Ext Bilat [US Periph Venous LOWER Ext Josué] Urgent
Comment:
Reason For Exam: swelling
Abnormal Lab Results
08/07/24
08:54
RBC 4.08 L 10^6/uL
(4.20-5.40)
Hgb 11.4 L g/dL
(12.0-16.0)
Hct 36.4 L %
(37.0-47.0)
MCHC 31.3 L g/dL
(33.0-37.0)
RDW 14.7 H %
(11.5-14.5)
Lymphocytes % 19.3 L %
(20.5-51.1)
Carbon Dioxide 31 H mmol/L
(22-30)
BUN 28 H mg/dl
(7-17)
Glucose 136 H mg/dl
(70-99)
Total Protein 6.1 L g/dl
(6.3-8.2)
Albumin 3.4 L g/dl
(3.5-5.0)
08/07/24 08:54
08/07/24 08:54
Vital Signs
Initial and Last Documented VS:
Initial Vital Signs
Temp Pulse Resp BP Pulse Ox
97.5 F 62 18 143/67 98
08/07/24 08:38 08/07/24 08:38 08/07/24 08:38 08/07/24 08:38 08/07/24 08:38
Last Documented Vital Signs
Temp Pulse Resp BP Pulse Ox
97.5 F 57 18 136/59 97
08/07/24 08:38 08/07/24 10:48 08/07/24 10:48 08/07/24 11:59 08/07/24 11:59
<Tony Lim, DO - Last Filed: 08/07/24 10:33>
Orders/Labs/Results
Orders:
Orders
08/07/24 08:40
CR Chest Portable - 1 View Urgent
Comment:
Reason For Exam: sob
Reason Study Needs to be Portable: Unable to Transport
08/07/24 08:54
Complete Blood Count/With Diff Urgent
Comprehensive Metabolic Panel Urgent
NT-proBNP Urgent
08/07/24 10:31
Venous Doppler Lwr Ext Bilat [US Periph Venous LOWER Ext Josué] Urgent
Comment:
Reason For Exam: swelling
Abnormal Lab Results
08/07/24
08:54
RBC 4.08 L 10^6/uL
(4.20-5.40)
Hgb 11.4 L g/dL
(12.0-16.0)
Hct 36.4 L %
(37.0-47.0)
MCHC 31.3 L g/dL
(33.0-37.0)
RDW 14.7 H %
(11.5-14.5)
Lymphocytes % 19.3 L %
(20.5-51.1)
Carbon Dioxide 31 H mmol/L
(22-30)
BUN 28 H mg/dl
(7-17)
Glucose 136 H mg/dl
(70-99)
Total Protein 6.1 L g/dl
(6.3-8.2)
Albumin 3.4 L g/dl
(3.5-5.0)
08/07/24 08:54
08/07/24 08:54
Vital Signs
Initial and Last Documented VS:
Initial Vital Signs
Temp Pulse Resp BP Pulse Ox
97.5 F 62 18 143/67 98
08/07/24 08:38 08/07/24 08:38 08/07/24 08:38 08/07/24 08:38 08/07/24 08:38
Last Documented Vital Signs
Temp Pulse Resp BP Pulse Ox
97.5 F 57 18 136/59 97
08/07/24 08:38 08/07/24 10:48 08/07/24 10:48 08/07/24 11:59 08/07/24 11:59
<Rubén Desouza PA-C - Last Filed: 08/07/24 12:44>
MDM/Problems Addressed
Differential Diagnosis Includes:
Increased swelling bilateral lower extremities. Consider worsening lymphedema versus heart failure. There is erythema of the legs could consider cellulitis however unlikely to be bilateral cellulitis. Check labs x-ray pending
<Rubén Desouza PA-C - Last Filed: 08/07/24 12:44>
*Critical Care Note
Total Time (30-74mins, 75-104mins- exclusive of procedures): Not Applicable
<Rubén Desouza PA-C - Last Filed: 08/07/24 12:44>
Update Note
Update Note:
Ultrasound negative for DVT bilaterally. Chest x-ray without any pleural effusions or edema. No respiratory distress here I suspect lymphedema versus dependent edema. I spoke with the daughter over the phone who said the patient has been
noncompliant at the facility did not go to bed last evening and sat in the chair all night. I suspect this may be a source of her increased swelling. Will increase her Lasix to 40 mg a day but no indication for admission. Stable for discharge
back to facility. Daughter in agreement.
ED Attending Note
<Rubén Desouza PA-C - Last Filed: 08/07/24 12:44>
-
Portions of this chart may have been created with voice recognition software.� Occasional wrong word or��sound alike� substitutions may have occurred due to the inherent limitations of voice recognition software.
<Tony Lim DO - Last Filed: 08/07/24 10:33>
ED Attending Note
Patient seen and examined by attending physician: Yes
I performed the substantive portion of visit, reviewed & personally made and approve the management plan that is documented in note by myself or GHASSAN.: Yes
ED Attending Note:
I have seen and evaluated the patient with a [id number] encounter. I have spoken to the advance practicer provider and involved in the medical history, the physical exam, medical decision making.
Evaluation and management service: agree unless noted differently below.
Results interpretation: agree unless noted differently below.
Focused HPI: 84-year-old female presenting for evaluation of bilateral leg swelling. History does indicate that she has a history of chronic lymphedema. Patient is a poor historian and does not offer much of a history. She does have history of
dementia.
Physical exam: Sitting bed comfortably. No acute distress. Bilateral leg pitting edema noted with venous stasis. Extremities otherwise neurovascularly intact
Medical Decision Making: Will confirm that she is taking her Lasix. If so, we will double her Lasix for a few days. Will obtain ultrasound rule out DVT.
Discharge Plan
Departure
Patient Disposition: Home (Routine Discharge)
Date of Disposition: 08/07/24
Time of Disposition: 12:43
Patient with high blood pressure during this ER visit?: No
Discharge Problem:
Bilateral edema of lower extremity
Prescriptions:
No Action
glipizide 10 MG tablet extended release 24hr
10 mg PO DAILY
lisinopril 40 MG tablet
40 mg PO DAILY
carvedilol 6.25 mg tablet
6.25 mg PO QPM
acetaminophen 325 mg Tablet
650 mg PO Q6HPRN PRN (Reason: mild pain/temp>100)
carvedilol 12.5 mg tablet
12.5 mg PO DAILY
trazodone 50 mg Tablet
50 mg PO HS
acetaminophen 500 mg Tablet
1,000 mg PO TID
furosemide 20 mg Tablet
20 mg PO DAILY
nystatin 100,000 unit/gram Powder
1 applic TOPICAL BID
Rx Instructions:
groin, bilateral breast
cholecalciferol (vitamin D3) [Vitamin D3] 25 mcg (1,000 unit) Tablet
25 mcg PO DAILY
Januvia 100 mg Tablet
100 mg PO DAILY
fluconazole 150 mg Tablet
150 mg PO WE
lorazepam 0.5 mg Tablet
0.5 mg PO PRN PRN (Reason: shower)
Referrals:
Broderick Gomes MD [Family Provider] -
Activity Restrictions/Additional Instructions:
Please increase Lasix to 40 mg daily for the next 5 days and recheck. Return if worse otherwise
Interventions
Interventions:
*Risk Screen - Suicide Last Done: 08/07/24 08:41
*Neglect/Abuse Screening Last Done: 08/07/24 08:41
*ED- Fall Risk Assessment Last Done: 08/07/24 08:43
*ED COVID-19 Vaccine History Last Done: 08/07/24 08:43
ED- Pulmonary Assessment Last Done: 08/07/24 08:44
ED-Skin Assessment Last Done: 08/07/24 08:44
Discharge Date and Time
Print Language: CHINESE
[2024-08-07 09:02] LABS: % Basophils 1.1 % (0-2); % Eosinophils 3.4 % (0-6); % Immature Granulocytes 0.3 % (0-0.5); % Lymphocytes 19.3 % (20.5-51.1); % Monocytes 8.8 % (1.7-9.3); % Neutrophils 67.1 % (42.2-75.2); Absolute Basophils 0.1 10^3/uL (0-0.2); Absolute Eosinophils 0.2 10^3/uL (0-0.7); Absolute Lymphocytes 1.2 10^3/uL (1.2-3.4); Absolute Monocytes 0.5 10^3/uL (0.1-0.6); Absolute Neutrophils 4.1 10^3/uL (1.4-6.5); Hematocrit 36.4 % (37.0-47.0); Hemoglobin 11.4 g/dL (12.0-16.0); Mean Corp Hgb Conc. 31.3 g/dL (33.0-37.0); Mean Corpuscular Hgb 27.9 pg (27.0-31.0); Mean Corpuscular Volume 89.2 fL (81.0-99.0); Mean Platelet Volume 9.6 fL (7.4-10.4); Nucleated Red Blood Cells % 0 %; Platelet Count 252 10^3/uL (130-400); Red Blood Cell Count 4.08 10^6/uL (4.20-5.40); Red Cell Dist. Width 14.7 % (11.5-14.5); White Blood Cell Count 6.2 10^3/uL (4.8-10.8)
[2024-08-07 09:16] LABS: ALT (SGPT) 12 U/L (0-35); AST (SGOT) 16 U/L (14-36); Albumin 3.4 g/dl (3.5-5.0); Alkaline Phosphatase 99 U/L (38-126); Blood Urea Nitrogen 28 mg/dl (7-17); Calcium 9.8 mg/dl (8.4-10.2); Carbon Dioxide 31 mmol/L (22-30); Chloride 104 mmol/L (98-107); Glucose 136 mg/dl (70-99); Potassium 4.2 mmol/L (3.5-5.1); Sodium 141 mmol/L (135-145); Total Bilirubin 0.5 mg/dl (0.2-1.3); Total Protein 6.1 g/dl (6.3-8.2); eGFR > 60.00
[2024-08-07 09:24] LABS: NT-proBNP 1950 pg/ml
[2024-08-07 09:47] VITALS: BP 150/90
[2024-08-07 09:50] VITALS: BP 150/90
[2024-08-07 10:48] VITALS: BP 122/100
[2024-08-07 11:59] VITALS: BP 136/59
[2024-08-07 13:00] VITALS: BP 119/47
== END 2024-08-07 13:42 | disposition home or self-care (01) ==
LOC: EMR 08:25
PROVIDERS: Physician Assistant; EMERGENCY PHYSICIAN Student in an Organized Health Care Education/Training Program; FAMILY PHYSICIAN Internal Medicine Geriatric Medicine
DX: R60.0 Localized edema (principal); E11.9 Type 2 diabetes mellitus without complications; F03.90 Unspecified dementia, unspecified severity, without behavioral disturbance, psychotic disturbance, mood disturbance, and anxiety
CPT/HCPCS: 99285; 71045; 80053; 83880; 85025; 93970

== ENCOUNTER 2024-09-12 21:47 | Inpatient (IN) | payer MEDICARE, BC, SELFPAY ==
[2024-09-12] VITALS (8 sets, daily range): BP systolic 113–130; BP diastolic 46–102; BMI 36.5; BMI 35.4
[2024-09-12 17:50] LABS: % Basophils 0.6 % (0-2); % Eosinophils 0.6 % (0-6); % Immature Granulocytes 0.3 % (0-0.5); % Lymphocytes 7.9 % (20.5-51.1); % Monocytes 4.4 % (1.7-9.3); % Neutrophils 86.2 % (42.2-75.2); Absolute Lymphocytes 0.5 10^3/uL (1.2-3.4); Absolute Monocytes 0.3 10^3/uL (0.1-0.6); Absolute Neutrophils 5.7 10^3/uL (1.4-6.5); Hematocrit 40.7 % (37.0-47.0); Hemoglobin 12.7 g/dL (12.0-16.0); Mean Corp Hgb Conc. 31.2 g/dL (33.0-37.0); Mean Corpuscular Hgb 27.8 pg (27.0-31.0); Mean Corpuscular Volume 89.1 fL (81.0-99.0); Mean Platelet Volume 10.8 fL (7.4-10.4); Nucleated Red Blood Cells % 0 %; Platelet Count 156 10^3/uL (130-400); Red Blood Cell Count 4.57 10^6/uL (4.20-5.40); Red Cell Dist. Width 14.7 % (11.5-14.5); White Blood Cell Count 6.6 10^3/uL (4.8-10.8)
[2024-09-12 17:52] LABS: Urine Albumin Negative (Neg - Trace); Urine Bilirubin Negative (Negative); Urine Character Clear (Clear); Urine Color Yellow; Urine Glucose Negative (Negative); Urine Ketone Negative (Negative); Urine Leukocyte Negative (Negative); Urine Nitrite Negative (Negative); Urine Occult Blood Negative (Negative); Urine Urobilinogen Negative (Neg - 1+)
[2024-09-12 18:04] LABS: Lactic Acid 0.6 mmol/L (0.7-2.0)
[2024-09-12 18:07] LABS: ALT (SGPT) 35 U/L (0-35); AST (SGOT) 33 U/L (14-36); Albumin 3.4 g/dl (3.5-5.0); Alkaline Phosphatase 113 U/L (38-126); Blood Urea Nitrogen 55 mg/dl (7-17); Calcium 9.5 mg/dl (8.4-10.2); Carbon Dioxide 29 mmol/L (22-30); Chloride 112 mmol/L (98-107); Estimated Creatinine Clearance 49 ml/min; Glucose 149 mg/dl (70-99); Potassium 5.9 mmol/L (3.5-5.1); Sodium 145 mmol/L (135-145); Total Bilirubin 0.4 mg/dl (0.2-1.3); eGFR 55.55
--- NOTE | 2024-09-12 19:16 | ED.GENMED ---
History of Present Illness
General
Chief Complaint: Weakness
Source: family, ambulance crew and long-term records
Exam Limitations: dementia
Time Seen by Provider: 09/12/24 17:57
Nursing documentation reviewed up to this point in time: agreed with
History of Present Illness
History of Present Illness:
84-year-old female with a past medical history of dementia, hypertension, diabetes, chronic lymphedema who presents to the emergency department with her daughter; she presents via EMS from [facility] in [place] for evaluation of change in mental
status. Daughter says that patient has significant baseline dementia and has had marked decline over the past year. She is however typically able to at least identify her daughter and communicate, feed herself. Apparently over the past few days
has had increased lethargy and today was essentially nonverbal which prompted referral to the ER. Daughter notes that she has been having issues with soiling herself. Patient cannot meaningfully participate in history due to significant dementia.
Past History
Past History
ED Past Medical History: HTN, IDDM and Other (Dementia, ); Negative Arrthythmia
ED Past Surgical History: Cholecystectomy, (X 3), Orthopedic (Right and left hip replacement, Left and right knee replacement,) and Tonsilectomy
Social History
Tobacco: Non-smoker
Alcohol: None
Drug: None
Personal:
Living: long-term
Employment: Retired
Family History
Family History: Hypertension
Review of Systems
Review of Systems
Unable to obtain full review of systems at this time due to: dementia
All Other Systems: Not applicable
Phy Exam
Physical Exam
Physical Exam:
General: Sitting in bed eyes closed, no verbal response�appears chronically ill
Head: Normocephalic, atraumatic
Eyes: Conjunctiva normal
Throat: Airway intact, handling secretions
Neck: Trachea midline
Lungs: Clear to auscultation bilaterally, no wheezing, rales, rhonchi
Heart: Regular rate and rhythm, no murmurs, gallops, or rubs appreciated
Abd: Soft, non distended, no masses, not apparently tender; she has some erythema in the intertriginous regions around the belt line and in the groin
Extremities: Marked lymphedema in the legs bilaterally with erythema of the calves bilaterally right greater than left and significant wounds
Scores
Heart Failure Risk
Heart Failure Risk Score: Not Applicable
Heart Score for Chest Pain Patients
STEMI patient?: Not applicable
Withdrawal Assessment of Alcohol
Withdrawal Assessment Completed?: Not applicable
Course
Orders/Labs/Results
Orders:
Orders
09/12/24 17:36
Electrocardiogram (*1) Urgent
Reason for Study: Other
Other Reason for Exam: Possible Sepsis
Straight cath- Treatment ONCE
09/12/24 17:37
EKG- Treatment ONCE
09/12/24 17:38
Complete Blood Count/With Diff Urgent
Comprehensive Metabolic Panel Urgent
TSH Reflex To Free T4 Urgent
Urinalysis Reflex To Culture Urgent
Date Specimen was Collected: 09/12/24
Time Specimen was Collected: 17:37
09/12/24 17:39
Lactic Acid Q4H
Comment: ON ICE, CANCEL 2ND ORDER IF FIRST LACTIC ACID LEVEL <2
Blood Culture Q20M
BALDEV Source: Blood/Venous
Specimen Description:
Comment: Urgent from separate sites. If patient screens positive for possible sepsis
Blood Culture Q20M
BALDEV Source: Blood/Venous
Specimen Description:
Comment: Urgent from separate sites. If patient screens positive for possible sepsis
09/12/24 17:58
CT Head W/o Iv Contrast Urgent
Comment:
Reason For Exam: change in mentation
09/12/24 17:59
CR Chest Portable - 1 View Urgent
Comment:
Reason For Exam: weakness, confusion/lethergy
Reason Study Needs to be Portable: Unable to Transport
09/12/24 19:25
Add On- LAB Urgent
Tests Added?: TSH reflex to free T4
09/12/24 19:53
Zackary Hugger [Zackary Hugger-Treatment] ONCE
Patient's goal temperature:: 36.1 C
Additional Instructions:: Temperature and skin assessment per unit protocol
Vital Signs- Treatment ONCE
Frequency: Once
Comment: TEMPERATURE NEEDS TO BE DOCUMENTED
09/12/24 19:59
CeFAZolin 2 GRAM [Ancef] 2 grams in 10 ml IV NOW
09/12/24 20:28
Murry Placement- Treatment ONCE
Reason for insertion: I&O's Critical Care
09/12/24 20:29
STOOL [C difficile Antigen & Toxins] Urgent
BALDEV Source: Feces/Stool
Specimen Description:
Stool Culture Urgent
BALDEV Source: Feces/Stool
Specimen Description:
Abnormal Lab Results
09/12/24 09/12/24
17:38 17:39
MCHC 31.2 L g/dL
(33.0-37.0)
RDW 14.7 H %
(11.5-14.5)
MPV 10.8 H fL
(7.4-10.4)
Absolute Lymphs (auto) 0.5 L 10^3/uL
(1.2-3.4)
Neutrophils % 86.2 H %
(42.2-75.2)
Lymphocytes % 7.9 L %
(20.5-51.1)
Potassium 5.9 H mmol/L
(3.5-5.1)
Chloride 112 H mmol/L
(98-107)
BUN 55 H mg/dl
(7-17)
Glucose 149 H mg/dl
(70-99)
Lactic Acid 0.6 L mmol/L
(0.7-2.0)
Total Protein 6.0 L g/dl
(6.3-8.2)
Albumin 3.4 L g/dl
(3.5-5.0)
09/12/24 17:38
09/12/24 17:38
Vital Signs
Temp: 32.7 C (axillary)
Initial and Last Documented VS:
Initial Vital Signs
BP
114/46
09/12/24 17:17
Last Documented Vital Signs
Pulse Resp BP Pulse Ox
96 20 120/54 99
09/12/24 20:00 09/12/24 20:00 09/12/24 20:00 09/12/24 18:18
MDM/Problems Addressed
Differential Diagnosis Includes:
Differential diagnosis for change in mental status is wide and includes but not limited to: Infection (UTI, pneumonia, cellulitis, viral syndrome), polypharmacy, delirium/progression of chronic dementia, uremia/renal failure/electrolyte derangement,
anemia, stroke/brain bleed, myxedema coma/hypothyroidism
MDM/Problems Addressed:
84-year-old female presents with change in mental status as described above. Increasing lethargic over the past few days today essentially nonverbal. Vitals and exam as above�notably hypothermic. Plan to place an IV check labs including a CBC and
a CMP, blood cultures, urinalysis. Check an EKG. Check CT head, chest x-ray. Will monitor and reassess.
Labs reviewed: CBC shows no clinically significant abnormalities. CMP shows acceptable creatinine, marginal hyperkalemia with a potassium of 5.9. Urinalysis is negative for infection. Chest x-ray no acute abnormalities on my independent review.
CT head pending. TSH pending.
CT head no acute abnormalities. TSH still pending. Plan admit for continued evaluation and treatment with persistent altered mentation and hypothermia. Discussed case with hospitalist.
Patient noted to have diarrhea by nurse�added stool studies.
Chronic conditions affecting care:
Dementia
*Radiology
Radiology exam reviewed: preliminary read by ED provider and radiology read reviewed
*Pulse Oximetry
Patient hypoxic: no
*EKG
Interpreted by ED Provider?: Yes
Heart Rate: 53
Rate: normal
Rhythm: sinus
[place]: left axis deviation
Interval: normal interval
QRS Pattern: left bundle branch block
Ischemia: no ischemia
*Critical Care Note
Total Time (30-74mins, 75-104mins- exclusive of procedures): Not Applicable
Data Reviewed
Review of Other/Old Records Reveals: Labs and Records
Source: records, family, ambulance crew and long-term records
Patient Management
Discussion with other providers: Hospitalist (Discussed with hospitalist)
Escalation/DeEscalation of care consider admission/obs:
Admission indicated
ED Attending Note
-
Portions of this chart may have been created with voice recognition software.� Occasional wrong word or��sound alike� substitutions may have occurred due to the inherent limitations of voice recognition software.
Discharge Plan
Departure
Discharge Problem:
Encephalopathy, Hypothermia, Cellulitis
Prescriptions:
No Action
glipizide 10 MG tablet extended release 24hr
10 mg PO DAILY
lisinopril 40 MG tablet
40 mg PO DAILY
carvedilol 6.25 mg tablet
6.25 mg PO QPM
acetaminophen 325 mg Tablet
650 mg PO Q6HPRN PRN (Reason: mild pain/temp>100)
carvedilol 12.5 mg tablet
12.5 mg PO DAILY
trazodone 50 mg Tablet
50 mg PO HS
acetaminophen 500 mg Tablet
1,000 mg PO TID
furosemide 20 mg Tablet
20 mg PO DAILY
nystatin 100,000 unit/gram Powder
1 applic TOPICAL BID
Rx Instructions:
groin, bilateral breast
cholecalciferol (vitamin D3) [Vitamin D3] 25 mcg (1,000 unit) Tablet
25 mcg PO DAILY
Januvia 100 mg Tablet
100 mg PO DAILY
fluconazole 150 mg Tablet
150 mg PO WE
lorazepam 0.5 mg Tablet
0.5 mg PO PRN PRN (Reason: shower)
Referrals:
Broderick Gomes MD [Family Provider, Internal Medicine]
Interventions
Interventions:
*Risk Screen - Suicide Last Done: 09/12/24 17:23
*General Assessment Last Done: 09/12/24 17:23
*Neglect/Abuse Screening Last Done: 09/12/24 17:23
*ED- Fall Risk Assessment Last Done: 09/12/24 17:23
*ED COVID-19 Vaccine History Last Done: 09/12/24 17:23
ED- Cardiac Assessment Last Done: 09/12/24 18:18
ED- Neurological Assessment Last Done: 09/12/24 18:18
ED- Pulmonary Assessment Last Done: 09/12/24 18:18
Discharge Date and Time
Print Language: ESTONIAN
[2024-09-12 20:36] LABS: TSH Reflex To Free T4 3.02 uIU/ml (0.47-4.68)
[2024-09-12] MEDS: ANCEF 10 IV (21:00)
--- NOTE | 2024-09-12 21:55 | HPS.HSE ---
Family Physician
-
Family Physician: Broderick Gomes
Chief Complaint
-
Confusion / Lethargy
History of Present Illness
Patient is an 84y F with PMH significant for senile dementia, hypertension and DM-II who presents to ED for evaluation of increased lethargy and confusion. History obtained from [facility] record and family at the bedside. Patient with decreased
interactions / increased lethargy over the past few weeks. She has taken to sitting in a chair all day and being difficulty with / refusing routine care. Over the past 2-3 days in particular she has become much less interactive. She is
chronically incontinent, but has also been refusing care / difficult to keep clean at the PR. Today with persistent lethargy, decreased interactions, etc patient was brought to the ED for further evaluation.
On arrival to the ED patient was noted to be moderately hypothermic with temperature of 91 degrees.
No new medications.
Medical History
Past Medical History
Past Medical History: Reports Other
Additional Past Medical History:
Diabetes Mellitus, Type II
Essential Hypertension
Chronic Lower Extremity Lymphedema
CKD Stage II
Anemia of Chronic Disease
Alzheimer's Dementia
Osteoarthritis
Past Surgical History: Reports Other
Additional Past Surgical History:
Cholecystectomy
Cesarian Section
Bilateral Hip Replacements
Bilateral Knee Replacements
Tonsillectomy
Social History
Tobacco: Non-smoker
Alcohol: None
Living: With Family
Family History
Family History: Not pertinent
Allergies / Home Medications
Allergies reflects when Allergies were last updated in [employer].
Home Medications with original date entered in [employer]
Allergy/Medication List:
Allergies
Allergy/AdvReac Type Severity Reaction Status Date / Time
Opioids - Morphine Analogues Allergy Nausea / Verified 09/12/24 17:19
Vomiting
Home Medications
glipizide 10 mg tablet, extended release 24 hr 10 mg PO DAILY Diabetes 07/22/19
lisinopril 40 mg tablet 40 mg PO DAILY Blood Pressure 07/22/19
carvedilol 6.25 mg tablet 6.25 mg PO QPM Heart Disease/Condition 10/06/23
acetaminophen 325 mg tablet 650 mg PO Q6HPRN PRN mild pain/temp>100 11/17/23
carvedilol 12.5 mg tablet 12.5 mg PO DAILY 11/17/23
acetaminophen 500 mg tablet 1,000 mg PO TID 06/22/24
cholecalciferol (vitamin D3) 25 mcg (1,000 unit) tablet (Vitamin D3) 25 mcg PO DAILY 06/22/24
nystatin 100,000 unit/gram topical powder 1 applic topical BID groin 06/22/24
sitagliptin phosphate 100 mg tablet (Januvia) 100 mg PO DAILY 06/22/24
trazodone 50 mg tablet 50 mg PO HS 06/22/24
lorazepam 0.5 mg tablet 0.5 mg PO DAILYPRN PRN shower 08/07/24
bumetanide 0.5 mg tablet 0.5 mg PO DAILY 09/12/24
Review of Systems
-
History Source: Family
Constitutional: Reports Fatigue
Respiratory: Denies Cough
Abdomen/GI: Denies Nausea, Vomiting or Diarrhea
: Reports Incontinence (chronic)
Musculoskeletal: Reports Edema (chronic)
Skin: Reports Other (fungal rash on breasts, groin.)
Psych: Reports Dementia
Physical Exam
Vital Signs
Vital Signs
Temp Pulse Resp BP Pulse Ox
90.0 F L 83 12 121/70 99
09/12/24 21:38 09/12/24 21:45 09/12/24 21:45 09/12/24 21:00 09/12/24 18:18
Physical Exam
General: Other (84y F sleeping / pooorly responsive. Opens eyes briefly. Does not speak / follow commands. Withdraws from painful stimuli. Scratching at rash on her chest.)
HEENT: Other (Dry MM. Neck supple.)
Respiratory: Other (Decreased at baseline. Otherwise clear.)
Cardiac: S1/S2 and Regular Rhythm
GI: Other (Obese, no apparent tenderness. Pos BS.)
Musculoskeletal: Other (3-4+ pitting edema b/l LEs with superficial ulcerations R > L. Mild erythema.)
Skin: Other (Large area of excoriation / maceration / erythema bilateral breasts / chest. )
Neuro: Other (Lethargic / poorly responsive. No evident focal deficits.)
Laboratory Results
-
09/12/24 17:38
09/12/24 17:38
Laboratory Results
Lactic Acid Cancelled 09/12/24 21:45
Total Bilirubin 0.4 mg/dl (0.2-1.3) 09/12/24 17:38
AST 33 U/L (14-36) 09/12/24 17:38
ALT 35 U/L (0-35) 09/12/24 17:38
Alkaline Phosphatase 113 U/L (38-126) 09/12/24 17:38
Impression/Plan
-
A/P: Patient is an 84y F with PMH significant for dementia, hypertension and DM-II who presents to ED for evaluation of increased lethargy.
Hypothermia
- Admit for further evaluation and treatment.
- Unclear etiology at present.
- ? med effect (oral hypoglycemics), infection (skin / soft tissue) or central dysregulation / progression of dementia.
- Hold all home meds for now - especially sedating meds, oral hypoglycemics, etc.
- Active rewarming with Zackary Hugger. Use fluid warmer for all IVFs until at goal temp.
- TFTs are unremarkable. Cortisol pending.
- CT head unremarkable. Check MRI in AM for completeness.
- Follow for clinical changes with rewarming.
Azotemia
Hyperkalemia
- Likely intravascularly depleted. Hold Lasix.
- IVFs (using warmer as noted above).
- Follow for improvement in labs / lytes.
- Murry in place for monitoring of core temp.
Tinea Corporis
Chronic Lymphedema +/- Cellulitis
- Severe fungal rash on chest / groin areas.
- Continue topical treatments - Wound Care for evaluations.
- IV abx for now for possible superimposed SSTI given hypothermia / clinical change.
- Lymphedema therapy / elevated extremities / etc.
Senile Dementia
- Advanced dementia at baseline with evidence of more recent decline over the past weeks.
- Hold meds acutely.
Benign Hypertension
- BP medications on hold given hypothermia, azotemia, etc.
DM-II
- Stable. Not hypoglycemic.
- Hold current medications.
- Follow glucose and cover with SSI if needed.
- Update A1C.
DVT Prophylaxis: Lovenox
Code Status: DNR
[2024-09-12 22:08] LABS: Cortisol, Random 21.9 ug/dl
[2024-09-12] MEDS: NSS 1000 IV (22:52)
[2024-09-12] MEDS: DESENEX/MITRAZOL/ZEASORB 1 APPLIC TOPICAL (23:15)
[2024-09-13] VITALS (92 sets, daily range): BP systolic 78–163; BP diastolic 34–91; BMI 35.4
[2024-09-13] MEDS: LEVOPHED 250 IV ×2 (01:40→11:16)
[2024-09-13] MEDS: NSS 500 IV ×2 (01:45→05:25)
[2024-09-13] MEDS: ANCEF 10 IV ×3 (03:25→19:44)
[2024-09-13 03:43] LABS: Hematocrit 40.6 % (37.0-47.0); Hemoglobin 12.8 g/dL (12.0-16.0); Mean Corp Hgb Conc. 31.5 g/dL (33.0-37.0); Mean Corpuscular Hgb 27.7 pg (27.0-31.0); Mean Corpuscular Volume 87.9 fL (81.0-99.0); Mean Platelet Volume 10.4 fL (7.4-10.4); Platelet Count 153 10^3/uL (130-400); Red Blood Cell Count 4.62 10^6/uL (4.20-5.40); Red Cell Dist. Width 14.9 % (11.5-14.5)
[2024-09-13 04:19] LABS: Blood Urea Nitrogen 52 mg/dl (7-17); Calcium 9.3 mg/dl (8.4-10.2); Carbon Dioxide 26 mmol/L (22-30); Chloride 116 mmol/L (98-107); Estimated Creatinine Clearance 48 ml/min; Glucose 118 mg/dl (70-99); Magnesium 1.7 mg/dl (1.6-2.3); Phosphorus 3.5 mg/dl (2.5-4.5); Potassium 5.5 mmol/L (3.5-5.1); Sodium 145 mmol/L (135-145); eGFR 55.55
[2024-09-13 04:26] LABS: Cortisol, Random 33.6 ug/dl
[2024-09-13] MEDS: NSS 1000 IV ×3 (06:29→23:13)
[2024-09-13 07:09] LABS: Glucose - Point of Care 150 mg/dl (70-99)
--- NOTE | 2024-09-13 07:30 | PTCARENOTE ---
Received verbal report from HENOK Sanchez. Pt arrived to unit via stretcher with family at bedside. Pt responsive only to deep pain. Core temperature on arrival to unit 89 F. Zackary hugger on, IVF warmed and infusing @ 125 mL/hr. Pt became hypotensive.
500 mL bolus administered. Levo gtt initiated and then titrated up to 8. This RN inquired about patient transfer to ICU to [facility]. Levo gtt Rx changed for SBP > 90 and additional 500 mL bolus ordered. Pt remains lethargic.
[2024-09-13] MEDS: NOVOLOG FLEXPEN-LOW RESISTANCE 1 UNITS SC (07:58)
--- NOTE | 2024-09-13 08:18 | PTCARENOTE ---
Pt unresponsive at this time, Levo at 8mcg MAP at 75 now Levo at 7MCG , Zackary Hugger in place temp 97.1 Zackary Hugger set on low.. NS at 80ml/hr. Pt on Ra at 95%. Murry and FMS in place.
[2024-09-13 09:37] LABS: Glycohemoglobin (HgbA1c) 7.5 % (4.0-5.6)
--- NOTE | 2024-09-13 09:57 | W.PN.HOSP.TC ---
Today's Communication/Plan
-
see bold
Assessment / Plan
Assessment / Plan
HPI: 84y F with PMH significant for senile dementia, hypertension and DM-II who presents to ED for evaluation of increased lethargy and confusion. History obtained from NH record and family at the bedside. Patient with decreased interactions /
increased lethargy over the past few weeks. She has taken to sitting in a chair all day and being difficulty with / refusing routine care. Over the past 2-3 days in particular she has become much less interactive. She is chronically incontinent,
but has also been refusing care / difficult to keep clean at the [place]. Today with persistent lethargy, decreased interactions, etc patient was brought to the ED for further evaluation.
On arrival to the ED patient was noted to be moderately hypothermic with temperature of 91 degrees. No new medications.
Profound hypothermia
Acute encephalopathy
- Unclear etiology at present, head CT negative, brain MRI pending
- TSH, random in a.m. cortisol all normal
- Patient unresponsive, drooling, only flinches to pain
- Consult neurology
- Family interested in hospice, but awaiting brain MRI and neurology input before making decision
Azotemia
Hyperkalemia
- Likely intravascularly depleted. Hold Lasix.
- Continue IV fluids
Tinea Corporis
Chronic Lymphedema +/- Cellulitis
- Severe fungal rash on chest / groin areas.
- Continue topical treatments - Wound Care for evaluations.
- IV abx for now for possible superimposed SSTI given hypothermia / clinical change.
- Lymphedema therapy / elevated extremities / etc.
Senile Dementia
- Advanced dementia at baseline with evidence of more recent decline over the past weeks.
- Hold meds acutely.
Benign Hypertension
- BP medications on hold given hypothermia, azotemia, etc.
DM-II
- Stable. Not hypoglycemic.
- Hold current medications.
- Follow glucose and cover with SSI if needed.
Obesity due to excess calories
-Affects all aspects of care
DVT Prophylaxis: Lovenox
Code Status: DNR
Updated daughter at bedside 09/13
Total time spent to see the patient on the floor, examine the patient, review data and lab results, discuss treatment plan with patient, nursing staff around 51 minutes.
Physical Exam
General: Obese, unresponsive
HEENT: Normocephalic, Atraumatic
Excessive oral secretions noted
Respiratory: Clear to Auscultation bilaterally
Cardiac: Normal S1/S2, Regular Rate and Rhythm
GI: Soft, Nontender, Nondistended, Normal Bowel Sounds
Extremities: No Clubbing, Cyanosis, or Edema
Neuro: Flinches in response to pain
Anticipated Discharge: > 48 hours
Subjective/Interval History
-
Date of Service: September 13, 2024
Patient remains unresponsive. No fever, no vomiting.
Objective Data
-
Labs:
Laboratory Results
09/13/24
03:32
WBC 7.0
Hgb 12.8
Hct 40.6
Plt Count 153
Sodium 145
Potassium 5.5 H
Chloride 116 H
Carbon Dioxide 26
BUN 52 H
Creatinine 1.0
Glucose 118 H
Calcium 9.3
Vital Signs:
Vital Signs
Temp Pulse Resp BP Pulse Ox
97.4 F 77 13 117/46 96
09/13/24 09:00 09/13/24 09:00 09/13/24 09:00 09/13/24 09:00 09/13/24 09:00
I&O
09/12/24 09/13/24 09/14/24
06:59 06:59 06:59
Intake Total 1750 / 1750
Output Total 50 / 50
Balance 1700 / 1700
[2024-09-13] MEDS: DESENEX/MITRAZOL/ZEASORB 1 APPLIC TOPICAL ×2 (11:21→19:45)
--- NOTE | 2024-09-13 11:45 | PTCARENOTE ---
2 decho in progress . Daughter here visiting very realistic re pt condition
[2024-09-13 11:54] LABS: Glucose - Point of Care 127 mg/dl (70-99)
--- NOTE | 2024-09-13 12:14 | PTCARENOTE ---
Warmer for IV fluid DC levo to 2 MCG/HR. Pt for MRI this afternoon.
--- NOTE | 2024-09-13 12:25 | WOUNDNOTE ---
ABDOMINAL/GROIN SKIN FOLDS
--- NOTE | 2024-09-13 12:26 | WOUNDNOTE ---
UPPER ABDOMEN UNDER BREASTS
--- NOTE | 2024-09-13 12:26 | WOUNDNOTE ---
R LOWER LATERAL LEG
--- NOTE | 2024-09-13 12:27 | WOUNDNOTE ---
R MEDIAL POSTERIOR LOWER LEG
--- NOTE | 2024-09-13 12:27 | WOUNDNOTE ---
Juan Ramon LEG
--- NOTE | 2024-09-13 12:27 | WOUNDNOTE ---
L LATERAL POSTERIOR LOWER LEG
--- NOTE | 2024-09-13 12:30 | WOUNDNOTE ---
WON RN note: Patient admitted with hypothermia and cellulitis.
See H&P for complete history.
PMH: Type 2 DM, HTN, GERD, Dementia-Alzheimer. Pleasant, oriented to self only.
Wound Location and type/assessment: Patient known to service, for venous leg blisters, last seen 10/27/23. Admitted with open venous blister on R medial and lateral leg. L posterior lateral with small nearly healed venous ulcer. Skin warm and dry,
2-3+ edema, heels intact. Patient turned with assist of Christian Leija with stage 1 PI. Large areas of dry fungal rash on upper abdomen/breasts and groin skin folds, fungal powder in use. Patient unresponsive with intermittent twitching,
states nurse. Goals of care to be discussed btw family and hospitalist.
Pressure redistribution devices in place: Air mattress, pillow under calves.
Plan: Adaptic and dry dressing applied to blisters on legs, leg elevation for now. Recommend continue fungal powder to skin folds, if no improvement would switch to Nizoral cream. RN updated and care plan. Will confirm wound care orders with Dr. Hernandes
and follow as needed.
--- NOTE | 2024-09-13 13:48 | PTCARENOTE ---
Awaiting MRI family at bedside
--- NOTE | 2024-09-13 14:03 | HOSPNOTE ---
Referral requested and we will follow up after MRI. More information to follow.
--- NOTE | 2024-09-13 14:52 | CM ---
CM reviewed chart and spoke with staff at [facility]. Pt has dementia, prior to admission was ambulating independently with rollator prior to admission, owns at night. [place] reports significant cognitive decline over past 2 weeks.
PCP: Broderick Gomes
[facility]
CM consult for hospice, discussion with [facility], Nursing Eyad and Dr Hernandes, anticipate plan for [facility] admission tomorrow.
Discharge plan: [facility] hospice
--- NOTE | 2024-09-13 16:06 | CM ---
CM met with pt's family, discussed hospice care. Family had questions regarding [facility] here vs returning to [facility] hosp[facility]. Reviewed both options with them and answered all questions. Family is comfortable with comfort care here and will await
outcome of hospice eval tomorrow. Dr Hernandes and HENOK Castano updated.
--- NOTE | 2024-09-13 16:12 | PTCARENOTE ---
Pt BP drop to 78/45 levo back on temp drop to 96.[address] Hernandes aware. awaiting MRI . Family at bedside.
[2024-09-13] MEDS: LOVENOX 40 MG SC (18:44)
[2024-09-13 18:54] LABS: Glucose - Point of Care 95 mg/dl (70-99)
--- NOTE | 2024-09-13 19:12 | PTCARENOTE ---
Pt to anf from MRI without incident. Pt on Levo during MRI
[2024-09-14] VITALS (18 sets, daily range): BP systolic 96–146; BP diastolic 45–69; BMI 26.4
[2024-09-14 00:37] LABS: Glucose - Point of Care 88 mg/dl (70-99)
--- NOTE | 2024-09-14 01:38 | PTCARENOTE ---
Pt with two episodes of desat to 70% while resting in bed. Pt recovered to 97% upon arousal. 2L O2 placed.
[2024-09-14] MEDS: ANCEF 10 IV (03:49)
[2024-09-14 06:05] LABS: Glucose - Point of Care 75 mg/dl (70-99)
[2024-09-14] MEDS: DESENEX/MITRAZOL/ZEASORB 1 APPLIC TOPICAL ×2 (07:49→20:50)
[2024-09-14] MEDS: DEXTROSE 50% SYRINGE 12.5 GRAMS IV (08:14)
[2024-09-14 08:16] LABS: Glucose - Point of Care 56 mg/dl (70-99)
[2024-09-14 08:50] LABS: Glucose - Point of Care 111 mg/dl (70-99)
[2024-09-14] MEDS: D5/0.9% SODIUM CHLORIDE 1000 IV (09:42)
--- NOTE | 2024-09-14 09:54 | PN.CDI ---
CDI
- -
CDI:
Physician Documentation Request
Admit Date: 09/12/24 21:47
Dear Doctor Do,
Clinical Indicators:
Patient admitted with acute encephalopathy; PMH includes advanced senile dementia.
09/13 WOC RN skin/wound assessment: Sacrum Stage 1 Pressure Injury, POA
Treatment: Barrier ointment, pressure redistribution devices
Physician documentation of the type and location of wounds is required for compliant documentation. Based on the above clinical findings and your assessment, please provide the following in your progress note:
1. Location of the ulcer/wound, including laterality.
2. Type (etiology) of ulcer/wound:
- Pressure (decubitus) ulcer
- Other, please specify
3. If a pressure ulcer, please also include the stage* of the ulcer:
- Stage 1 - Skin intact, non-blanchable redness
- Stage 2 - Partial thickness loss of dermis, includes intact or open blister
- Stage 3 - Full thickness tissue not including bone, tendon or muscle
- Stage 4 - Full thickness tissue loss, including exposed bone, tendon or muscle
- Unstageable - Full thickness loss in which the base of the ulcer is covered by slough (yellow, gamez, connelly, green or brown) and/or eschar (gamez, brown or black) in the wound bed.
- Unable to determine
Use of terms such as suspected, likely, concern for, or probable (associated with a specific diagnosis that is being evaluated, monitored, or treated as if it exists) are acceptable and can be coded in the inpatient setting, when documented at the
time of discharge.
Thank you,
CODY Meza RN
CDI Specialist
available via tiger text
Please use your independent medical judgment in providing your response.
*Source: National Pressure Ulcer Advisory Panel (NPUAP)
--- NOTE | 2024-09-14 09:56 | W.PN.HOSP.TC ---
Today's Communication/Plan
-
Initiate comfort care measures only, transfer to [facility] on second floor
Assessment / Plan
Assessment / Plan
HPI: 84y F with PMH significant for senile dementia, hypertension and DM-II who presents to ED for evaluation of increased lethargy and confusion. History obtained from [place] record and family at the bedside. Patient with decreased interactions /
increased lethargy over the past few weeks. She has taken to sitting in a chair all day and being difficulty with / refusing routine care. Over the past 2-3 days in particular she has become much less interactive. She is chronically incontinent,
but has also been refusing care / difficult to keep clean at the [place]. Today with persistent lethargy, decreased interactions, etc patient was brought to the ED for further evaluation.
On arrival to the ED patient was noted to be moderately hypothermic with temperature of 91 degrees. No new medications.
Profound hypothermia
Acute encephalopathy
- Unclear etiology, head CT negative, brain MRI negative as well
- TSH, random in a.m. cortisol all normal
- Patient unresponsive, drooling, only flinches to pain
- Appreciate neurology input, patient has end-stage Alzheimer's dementia, with rapid deterioration and refusing care prior to admission
- Neurology agrees with hospice recommendation
- Appreciate hospice nurse, family agrees to transition to comfort care measures only /
- Discontinue IV fluids, IV antibiotics
- Start comfort care medications only
Azotemia
Hyperkalemia
Tinea Corporis
Chronic Lymphedema +/- Cellulitis
- Severe fungal rash on chest / groin areas.
Senile Dementia
- Advanced dementia at baseline with evidence of more recent decline over the past weeks.
Benign Hypertension
DM-II
Obesity due to excess calories
-Affects all aspects of care
Sacrum Stage 1 Pressure Injury, POA
-Wound care
Code Status: DNR
Updated daughter at bedside 09/14
Total time spent to see the patient on the floor, examine the patient, review data and lab results, discuss treatment plan with patient, nursing staff around 50 minutes.
Physical Exam
General: Obese, unresponsive
HEENT: Normocephalic, Atraumatic
Excessive oral secretions noted
Respiratory: Clear to Auscultation bilaterally
Cardiac: Normal S1/S2, Regular Rate and Rhythm
GI: Soft, Nontender, Nondistended, Normal Bowel Sounds
Extremities: No Clubbing, Cyanosis, or Edema
Neuro: Flinches in response to pain
Anticipated Discharge: Within 24 hours
Subjective/Interval History
-
Date of Service: September 14, 2024
Continues to be unresponsive and hypothermic. No fever, no vomiting.
Objective Data
-
Labs:
Laboratory Results
09/14/24
08:38
Sodium Pending
Potassium Pending
Chloride Pending
Carbon Dioxide Pending
BUN Pending
Creatinine Pending
Glucose Pending
Calcium Pending
Vital Signs:
Vital Signs
Temp Pulse Resp BP Pulse Ox
97.2 F 69 13 110/47 100
09/14/24 07:26 09/14/24 09:27 09/14/24 09:27 09/14/24 09:27 09/14/24 09:27
I&O
09/13/24 09/14/24 09/15/24
06:59 06:59 06:59
Intake Total 1750 / 1750 1500 / 1500
Output Total 50 / 50 400 / 400
Balance 1700 / 1700 1100 / 1100
--- NOTE | 2024-09-14 10:52 | HOSPNOTE ---
Spoke with daughter and the plan is for the patient to be placed on comfort and then hospice will continue to follow and we can always switch patient to inpatient hospice tomorrow if needed. Family would like the patient to be comfortable. BAO,
Attending and nurse aware of plan.
--- NOTE | 2024-09-14 11:30 | CON.NEURO ---
Neuro Assessment/Plan
Assessment
84 year old woman with end stage dementia, likely Alz, given prior fully dependent-->refusing routine care, now not eating, not talking would be progression to end stage dementia
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
Brain MRI imgs rev'd, atrophy and white matter disease appropriate for age, no acute findings
agree that hospice is appropriate
discussed with dtr
Consultation
Order
Date of Consultation: 09/14/24
Requesting Provider: Nelson Hernandes
Reason for Consult: dementia, hypothermia
Subjective/Objective
Subjective Data
Date of Service: September 14, 2024
from h&p
Patient is an 84y F with PMH significant for senile dementia, hypertension and DM-II who presents to ED for evaluation of increased lethargy and confusion. History obtained from [place] record and family at the bedside. Patient with decreased
interactions / increased lethargy over the past few weeks. She has taken to sitting in a chair all day and being difficulty with / refusing routine care. Over the past 2-3 days in particular she has become much less interactive. She is
chronically incontinent, but has also been refusing care / difficult to keep clean at the [place]. Today with persistent lethargy, decreased interactions, etc patient was brought to the ED for further evaluation.
On arrival to the ED patient was noted to be moderately hypothermic with temperature of 91 degrees.
No new medications.
daughter confirms this is the case
Objective Data
Vital Signs
Temp Pulse Resp BP Pulse Ox
36.1 C L 69 13 110/47 99
09/14/24 11:08 09/14/24 09:27 09/14/24 09:27 09/14/24 09:27 09/14/24 10:52
Lab Results
09/13/24 03:32
09/14/24 08:38
Sodium Cancelled 09/14/24 08:38
Potassium Cancelled 09/14/24 08:38
BUN Cancelled 09/14/24 08:38
Glucose Cancelled 09/14/24 08:38
Calcium Cancelled 09/14/24 08:38
Phosphorus 3.5 mg/dl (2.5-4.5) 09/13/24 03:32
Patient Allergies
Opioids - Morphine Analogues Allergy (Verified 09/12/24 17:19)
Nausea / Vomiting
Physical Exam
-
nonverbal
non interactive
Medications
-
Active Medications
Generic Name Dose Route Start Last Admin
Trade Name Freq PRN Reason Stop Dose Admin
Acetaminophen 650 mg 09/14/24 11:21
Acetaminophen 650 Mg Rectal Suppository RECTAL 10/12/24 11:20
Q4HPRN PRN
mild pain, AVELAR, or temp >100.4F
Bisacodyl 10 mg 09/14/24 11:21
Bisacodyl 10 Mg Rectal Suppository RECTAL 10/12/24 11:20
DAILYPRN PRN
if no BM for 3 days
Glycopyrrolate 0.2 mg 09/14/24 11:21
Glycopyrrolate 0.2 Mg/Ml Vial IV 10/12/24 11:20
Q4HPRN PRN
excessive secretions
Hyoscyamine Sulfate 0.125 mg 09/14/24 11:21
Hyoscyamine Sulfate 0.125 Mg/Ml In Oral Syringe SL 10/12/24 11:20
Q4HPRN PRN
excessive secretions
Morphine Sulfate/Sodium Chloride 100 mg in 100 mls @ 0 mls/hr 09/14/24 11:30
Morphine IV
PER PROTOCOL WHITNEY
Protocol
Per Protocol
Lorazepam 0.5 mg 09/14/24 11:21
Lorazepam 2 Mg/Ml Vial IV 10/12/24 11:20
Q2HPRN PRN
anxiety
Protocol
Miconazole Nitrate 1 applic 09/12/24 23:00 09/14/24 07:49
Miconazole Powder Bottle TOPICAL 10/10/24 22:59 1 applic
BID WHITNEY Administration
Morphine Sulfate 4 mg 09/14/24 11:21
Morphine 2 Mg/Ml Syringe IV 09/28/24 11:20
Q1HPRN PRN
moderate-severe pain / dyspnea
Morphine Sulfate 0 mg 09/14/24 11:21
Morphine 2 Mg/Ml Syringe IV 09/28/24 11:20
[id number] PRN
moderate-severe pain / dyspnea
Protocol
Ondansetron HCl 4 mg 09/14/24 11:21
Ondansetron 4 Mg/2 Ml Vial IV 10/12/24 11:20
Q6HPRN PRN
nausea/vomiting
Pharmacy Profile Note 0 unit 09/14/24 12:[address] 1 Unit IV 10/12/24 11:59
DIRECTED WHITNEY
Prochlorperazine Edisylate 5 mg 09/14/24 11:21
Prochlorperazine 10 Mg/2 Ml Vial IV 10/12/24 11:20
Q6HPRN PRN
nausea/vomiting
Sodium Chloride 0 flush 09/12/24 22:00
Sodium Chloride 0.9% (Flush) Syringe IV 10/10/24 21:59
PER PROTOCOL WHITNEY
Home Medications
�Medication �Instructions �Recorded
glipizide 10 mg tablet, extended 10 mg PO DAILY Diabetes 07/22/19
release 24 hr
lisinopril 40 mg tablet 40 mg PO DAILY Blood Pressure 07/22/19
carvedilol 6.25 mg tablet 6.25 mg PO QPM Heart 10/06/23
Disease/Condition
acetaminophen 325 mg tablet 650 mg PO Q6HPRN PRN mild 11/17/23
pain/temp>100
carvedilol 12.5 mg tablet 12.5 mg PO DAILY Blood Pressure 11/17/23
acetaminophen 500 mg tablet 1,000 mg PO TID mild pain 06/22/24
cholecalciferol (vitamin D3) 25 25 mcg PO DAILY Supplement 06/22/24
mcg (1,000 unit) tablet (Vitamin
D3)
nystatin 100,000 unit/gram topical 1 applic topical BID groin 06/22/24
powder
sitagliptin phosphate 100 mg 100 mg PO DAILY Diabetes 06/22/24
tablet (Januvia)
trazodone 50 mg tablet 50 mg PO HS Sleep 06/22/24
lorazepam 0.5 mg tablet 0.5 mg PO DAILYPRN PRN shower 08/07/24
bumetanide 0.5 mg tablet 0.5 mg PO DAILY Fluid 09/12/24
Retention/Swelling
--- NOTE | 2024-09-14 15:11 | CHAP ---
Josue Kevin received Sacrament of the Sick/Last Rites from [facility] as requested.
--- NOTE | 2024-09-14 15:29 | PTCARENOTE ---
pt transferred to med surg /comfort care. monitor removed. report given to [facility] on . complete bath given. BLE dressings intact. pt shows no signs of discomfort at this time. family present.
--- NOTE | 2024-09-14 16:39 | CM ---
Patient with Hx dementia with Dx Profound hypothermia, Acute encephalopathy. O2 2L. Per nurse; lethargic. Comfort Care.
Spoke with [facility]; patient will be in comfort care and hospice will continue to follow.
Plan comfort care.
--- NOTE | 2024-09-14 16:45 | PTCARENOTE ---
Patient transferred from IMU to . Patient resting comfortably in bed. Family at the bedside.
[2024-09-15 07:15] VITALS: BP 160/72
[2024-09-15] MEDS: DESENEX/MITRAZOL/ZEASORB 1 APPLIC TOPICAL ×2 (09:06→20:04)
--- NOTE | 2024-09-15 09:30 | W.PN.HOSP.TC ---
Today's Communication/Plan
-
Continue comfort care measures only
Assessment / Plan
Assessment / Plan
HPI: 84y F with PMH significant for senile dementia, hypertension and DM-II who presents to ED for evaluation of increased lethargy and confusion. History obtained from [place] record and family at the bedside. Patient with decreased interactions /
increased lethargy over the past few weeks. She has taken to sitting in a chair all day and being difficulty with / refusing routine care. Over the past 2-3 days in particular she has become much less interactive. She is chronically incontinent,
but has also been refusing care / difficult to keep clean at the [place]. Today with persistent lethargy, decreased interactions, etc patient was brought to the ED for further evaluation.
On arrival to the ED patient was noted to be moderately hypothermic with temperature of 91 degrees. No new medications.
Profound hypothermia
Acute encephalopathy
- Unclear etiology, head CT negative, brain MRI negative as well
- TSH, random in a.m. cortisol all normal
- Patient unresponsive, drooling, only flinches to pain
- Appreciate neurology input, patient has end-stage Alzheimer's dementia, with rapid deterioration and refusing care prior to admission
- Neurology agrees with hospice recommendation
- Appreciate hospice nurse, family agreed to transition to comfort care measures only 6/
- Discontinued IV fluids, IV antibiotics
- Continue comfort care medications only
Shock, unclear etiology
Azotemia
Hyperkalemia
Tinea Corporis
Chronic Lymphedema +/- Cellulitis
- Severe fungal rash on chest / groin areas.
Senile Dementia
- Advanced dementia at baseline with evidence of more recent decline over the past weeks.
Benign Hypertension
DM-II
Obesity due to excess calories
-Affects all aspects of care
Sacrum Stage 1 Pressure Injury, POA
-Wound care
Code Status: DNR
Updated daughters at bedside 09/15
Physical Exam
General: Obese, resting comfortably
HEENT: Normocephalic, Atraumatic
Respiratory: Clear to Auscultation bilaterally
Cardiac: Normal S1/S2, Regular Rate and Rhythm
GI: Soft, Nontender, Nondistended, Normal Bowel Sounds
Extremities: No Clubbing, Cyanosis
Bilateral lower extremity erythema and edema noted
Scattered ulcers on lower extremities, dressed
Anticipated Discharge: 24 - 48 hours
Subjective/Interval History
-
Date of Service: September 15, 2024
Patient is comfortable at present. She wakes up intermittently, and eats some applesauce. No fever, no vomiting.
Objective Data
-
Vital Signs:
Vital Signs
Temp Pulse Resp BP Pulse Ox
96.7 F L 71 16 160/72 96
09/15/24 07:15 09/15/24 07:15 09/15/24 07:15 09/15/24 07:15 09/15/24 07:15
I&O
09/14/24 09/15/24 09/16/24
06:59 06:59 06:59
Intake Total 1500 / 1500
Output Total 400 / 400 450 / 450
Balance 1100 / 1100 -450 / -450
--- NOTE | 2024-09-15 13:08 | HOSPNOTE ---
Patient appears comfortable at this time and does not meet inpatient hospice criteria. We will continue to follow.
--- NOTE | 2024-09-15 13:22 | PN.CDI ---
CDI
- -
CDI:
Physician Documentation Request
Admit Date: 09/12/24 21:47
Dear Doctor Do,
Clinical Indicators:
Patient admitted with profound hypothermia and encephalopathy.
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
09/13 (07:30) RN note, 'Pt became hypotensive. 500 mL bolus administered. Levo gtt initiated and then titrated up to 8'
09/13 (16:12) RN note, 'Pt BP drop to 78/45 levo back on'
Levophed requirements:
09/13/24
02:10 09/13/24
05:12 09/13/24
16:06
CURRENT dosage in mcg/min 4 8 2
Mean Arterial Pressure 58 61
Please clarify which of the following is the most likely etiology of the above symptoms and treatment rendered:
Shock, (please specify suspected type)
Neurogenic Hypotension
Hypotension (please specify other type/etiology)
Other, please specify
Use of terms such as suspected, likely, concern for, or probable (associated with a specific diagnosis that is being evaluated, monitored, or treated as if it exists) are acceptable and can be coded in the inpatient setting, when documented at the
time of discharge.
Thank you,
Susie Solorio RN
CDI Specialist
available via tiger text
Please use your independent medical judgment in providing your response.
--- NOTE | 2024-09-15 13:59 | CM ---
Reviewed the chart notes. CM continues to be available to patient/family.
Plan: Comfort care continues.
[2024-09-15] MEDS: ROBINUL 0.2 MG IV (15:11)
[2024-09-15] MEDS: MORPHINE SULFATE 4 MG IV (15:22)
[2024-09-15] MEDS: ZOFRAN 4 MG IV (15:23)
[2024-09-15 20:19] VITALS: BP 128/63
[2024-09-16 07:50] VITALS: BP 142/54
[2024-09-16] MEDS: DESENEX/MITRAZOL/ZEASORB 1 APPLIC TOPICAL ×2 (08:28→20:41)
--- NOTE | 2024-09-16 08:46 | W.PN.HOSP.TC ---
Today's Communication/Plan
-
see bold
Assessment / Plan
Assessment / Plan
HPI: 84y F with PMH significant for senile dementia, hypertension and DM-II who presents to ED for evaluation of increased lethargy and confusion. History obtained from NH record and family at the bedside. Patient with decreased interactions /
increased lethargy over the past few weeks. She has taken to sitting in a chair all day and being difficulty with / refusing routine care. Over the past 2-3 days in particular she has become much less interactive. She is chronically incontinent,
but has also been refusing care / difficult to keep clean at the OR. Today with persistent lethargy, decreased interactions, etc patient was brought to the ED for further evaluation.
On arrival to the ED patient was noted to be moderately hypothermic with temperature of 91 degrees. No new medications.
Profound hypothermia
Acute encephalopathy
- Unclear etiology, head CT negative, brain MRI negative as well
- TSH, random in a.m. cortisol all normal
- Patient unresponsive, drooling, only flinches to pain
- Appreciate neurology input, patient has end-stage Alzheimer's dementia, with rapid deterioration and refusing care prior to admission
- Neurology agrees with hospice recommendation
- Appreciate hospice nurse, family agreed to transition to comfort care measures only 6/
- Discontinued IV fluids, IV antibiotics
- Continue comfort care medications only
Shock, unclear etiology
Azotemia
Hyperkalemia
Tinea Corporis
Chronic Lymphedema +/- Cellulitis
- Severe fungal rash on chest / groin areas
- Continue Desenex twice daily
Senile Dementia
- Advanced dementia at baseline with evidence of more recent decline over the past weeks.
Benign Hypertension
DM-II
Obesity due to excess calories
-Affects all aspects of care
Sacrum Stage 1 Pressure Injury, POA
-Wound care
Code Status: DNR
Updated daughters at bedside 09/16
Physical Exam
General: Obese, resting comfortably
HEENT: Normocephalic, Atraumatic
Respiratory: Clear to Auscultation bilaterally
Cardiac: Normal S1/S2, Regular Rate and Rhythm
GI: Soft, Nontender, Nondistended, Normal Bowel Sounds
Extremities: No Clubbing, Cyanosis
Bilateral lower extremity erythema and edema noted
Scattered ulcers on lower extremities, dressed
Anticipated Discharge: 24 - 48 hours
Subjective/Interval History
-
Date of Service: September 16, 2024
Patient is comfortable at present. She wakes up intermittently, and eats some applesauce. No fever, no vomiting.
Objective Data
-
Vital Signs:
Vital Signs
Temp Pulse Resp BP Pulse Ox
98.1 F 68 16 142/54 94
09/16/24 07:50 09/16/24 07:50 09/16/24 07:50 09/16/24 07:50 09/16/24 07:50
I&O
09/15/24 09/16/24 09/17/24
06:59 06:59 06:59
Output Total 450 / 450 625 / 625
Balance -450 / -450 -625 / -625
--- NOTE | 2024-09-16 09:31 | CM ---
Reviewed the chart notes. CM continues to be available to patient/family.
Plan: Comfort care measures continue.
--- NOTE | 2024-09-16 17:10 | HOSPNOTE ---
Patient appears comfortable, denies pain. Hospice to follow for support.
[2024-09-16 19:35] VITALS: BP 156/73
[2024-09-17 07:15] VITALS: BP 142/57
--- NOTE | 2024-09-17 07:35 | W.PN.HOSP.TC ---
Today's Communication/Plan
-
Continue comfort care measures only
Assessment / Plan
Assessment / Plan
HPI: 84y F with PMH significant for senile dementia, hypertension and DM-II who presents to ED for evaluation of increased lethargy and confusion. History obtained from NH record and family at the bedside. Patient with decreased interactions /
increased lethargy over the past few weeks. She has taken to sitting in a chair all day and being difficulty with / refusing routine care. Over the past 2-3 days in particular she has become much less interactive. She is chronically incontinent,
but has also been refusing care / difficult to keep clean at the [facility]. Today with persistent lethargy, decreased interactions, etc patient was brought to the ED for further evaluation.
On arrival to the ED patient was noted to be moderately hypothermic with temperature of 91 degrees. No new medications.
Profound hypothermia
Acute encephalopathy
- Unclear etiology, head CT negative, brain MRI negative as well
- TSH, random in a.m. cortisol all normal
- Patient unresponsive, drooling, only flinches to pain
- Appreciate neurology input, patient has end-stage Alzheimer's dementia, with rapid deterioration and refusing care prior to admission
- Neurology agrees with hospice recommendation
- Appreciate hospice nurse, family agreed to transition to comfort care measures only /
- Discontinued IV fluids, IV antibiotics
- Continue comfort care medications only
Shock, unclear etiology
Azotemia
Hyperkalemia
Tinea Corporis
Chronic Lymphedema +/- Cellulitis
- Severe fungal rash on chest / groin areas
- Continue Desenex twice daily
Senile Dementia
- Advanced dementia at baseline with evidence of more recent decline over the past weeks.
Benign Hypertension
DM-II
Obesity due to excess calories
-Affects all aspects of care
Sacrum Stage 1 Pressure Injury, POA
-Wound care
Code Status: DNR
Updated daughters at bedside 09/17
Physical Exam
General: Obese, resting comfortably
HEENT: Normocephalic, Atraumatic
Respiratory: Clear to Auscultation bilaterally
Cardiac: Normal S1/S2, Regular Rate and Rhythm
GI: Soft, Nontender, Nondistended, Normal Bowel Sounds
Extremities: No Clubbing, Cyanosis
Bilateral lower extremity erythema and edema noted
Scattered ulcers on lower extremities, dressed
Anticipated Discharge: 24 - 48 hours
Subjective/Interval History
-
Date of Service: September 17, 2024
Patient has low grade fever. No vomiting.
Objective Data
-
Vital Signs:
Vital Signs
Temp Pulse Resp BP Pulse Ox
98.5 F 86 17 156/73 90
09/16/24 19:35 09/16/24 19:35 09/16/24 19:35 09/16/24 19:35 09/16/24 19:35
I&O
09/16/24 09/17/24 09/18/24
06:59 06:59 06:59
Intake Total 0 / 0
Output Total 625 / 625 250 / 250
Balance -625 / -625 -250 / -250
[2024-09-17] MEDS: DESENEX/MITRAZOL/ZEASORB 1 APPLIC TOPICAL ×2 (09:25→21:08)
[2024-09-17] MEDS: TYLENOL/FEVERALL 650 MG RECTAL ×2 (09:25→17:21)
--- NOTE | 2024-09-17 12:55 | HOSPNOTE ---
Patient is comfortable, does not meet GIP level of care for hospice.
[2024-09-17] MEDS: MORPHINE SULFATE 4 MG IV ×2 (17:20→22:28)
--- NOTE | 2024-09-17 18:25 | PTCARENOTE ---
woundcare completed by this RN this morning during hygiene with PCT. pt febrile this AM and afternoon. rectal tylenol given per orders. pt given prn morphine as well during this shift. see MAR for proper documentation. new desenex container sent
from pharmacy and is in pt specific drawer. daughters remain at bedside.
[2024-09-17 20:02] VITALS: BP 143/53
[2024-09-18] MEDS: ROBINUL 0.2 MG IV (04:07)
--- NOTE | 2024-09-18 07:48 | W.PN.HOSP.TC ---
Today's Communication/Plan
-
Continue comfort care measures only
Assessment / Plan
Assessment / Plan
HPI: 84y F with PMH significant for senile dementia, hypertension and DM-II who presents to ED for evaluation of increased lethargy and confusion. History obtained from NH record and family at the bedside. Patient with decreased interactions /
increased lethargy over the past few weeks. She has taken to sitting in a chair all day and being difficulty with / refusing routine care. Over the past 2-3 days in particular she has become much less interactive. She is chronically incontinent,
but has also been refusing care / difficult to keep clean at the [facility]. Today with persistent lethargy, decreased interactions, etc patient was brought to the ED for further evaluation.
On arrival to the ED patient was noted to be moderately hypothermic with temperature of 91 degrees. No new medications.
Profound hypothermia
Acute encephalopathy
- Unclear etiology, head CT negative, brain MRI negative as well
- TSH, random in a.m. cortisol all normal
- Patient unresponsive, drooling, only flinches to pain
- Appreciate neurology input, patient has end-stage Alzheimer's dementia, with rapid deterioration and refusing care prior to admission
- Neurology agrees with hospice recommendation
- Appreciate hospice nurse, family agreed to transition patient to comfort care measures only on 09/12
- Discontinued IV fluids, IV antibiotics
- Continue comfort care medications only
Shock, unclear etiology
Azotemia
Hyperkalemia
Tinea Corporis
Chronic Lymphedema +/- Cellulitis
- Severe fungal rash on chest / groin areas
- Continue Desenex twice daily
Senile Dementia
- Advanced dementia at baseline with evidence of more recent decline over the past weeks.
Benign Hypertension
DM-II
Obesity due to excess calories
-Affects all aspects of care
Sacrum Stage 1 Pressure Injury, POA
-Wound care
Code Status: DNR
Updated daughters at bedside 6/8
Physical Exam
General: Obese, resting comfortably
HEENT: Normocephalic, Atraumatic
Respiratory: Clear to Auscultation bilaterally
Cardiac: Normal S1/S2, Regular Rate and Rhythm
GI: Soft, Nontender, Nondistended, Normal Bowel Sounds
Extremities: No Clubbing, Cyanosis
Bilateral lower extremity erythema and edema noted
Scattered ulcers on lower extremities, dressed
Anticipated Discharge: Within 24 hours
Subjective/Interval History
-
Date of Service: September 18, 2024
Patient resting comfortably. No fever, no vomiting.
Objective Data
-
Vital Signs:
Vital Signs
Temp Pulse Resp BP Pulse Ox
97.8 F 77 17 143/53 85
09/17/24 20:02 09/17/24 20:02 09/17/24 20:02 09/17/24 20:02 09/17/24 20:02
I&O
09/17/24 09/18/24 09/19/24
06:59 06:59 06:59
Intake Total 0 / 0
Output Total 250 / 250 800 / 800
Balance -250 / -250 -800 / -800
[2024-09-18 07:50] VITALS: BP 171/72
[2024-09-18] MEDS: DESENEX/MITRAZOL/ZEASORB 1 APPLIC TOPICAL (09:28)
[2024-09-18] MEDS: LEVSIN ORAL DROPS 0.125 MG SL (09:30)
[2024-09-18] MEDS: MORPHINE SULFATE 4 MG IV ×2 (09:34→12:46)
--- NOTE | 2024-09-18 14:07 | HOSPNOTE ---
Patient continues on comfort measures. Medicated with morphine this morning. Increase secretions- reviewed medication to be given. Family bedside. Emotional support provided. Will continue to follow and support.
--- NOTE | 2024-09-18 15:45 | PTCARENOTE ---
Addendum entered by Luis Zurita RN 09/18/24 16:27:
pt with no spontaneous breathing, no heart beat by auscultation. not responding to stimuli. Dr Hernandes notified, Dr Shetty to come to room to pronounce pt. Immediate family present in room.
Original Note:
notified by pts family to check pt for signs of life.
--- NOTE | 2024-09-18 16:08 | W.PN.DEATH ---
Pronouncement of
-
Called to see patient to pronounce.
No spontaneous heart tones or respirations noted.
Patient not responsive to verbal stimuli.
Patient is pronounced .
Time of : 15:45
Date of : 09/18/24
Family Notified: Yes
--- NOTE | 2024-09-18 16:41 | W.DCSUMMARY ---
Discharge Summary
Discharge Data
Date of Admission: 09/12/24
Date of Discharge: 09/18/24
-
Pending Results: No
Hospital Course
Discharge diagnosis:
Advanced end-stage Alzheimer's disease
Acute encephalopathy
Profound hypothermia
Shock, unclear etiology
Azotemia
Hyperkalemia
Tinea corporis
Chronic lymphedema with possible cellulitis
Consults: Neurology
Hospital course:
84-year-old female with a past medical history of end-stage Alzheimer's disease, and chronic lymphedema was admitted for acute encephalopathy, profound hypothermia, and shock. She was treated with IV fluids, IV antibiotics, and pressors. She was
seen in conjunction with neurology, who states that she has advanced end-stage Alzheimer's. Hospice is recommended. Family agreed to transition the patient to comfort care measures on 09/15/2024. Her IV fluids, IV antibiotics, and pressors were
discontinued. She received comfort care measures only. Patient peacefully on 09/18/2024 at 15:45. Family was present at bedside, condolences were offered.
Discharge Plan
-
Patient Disposition:
Date/Time
Date/Time: 09/18/24 15:45
Discharge Date and Time
Discharge Date/Time: 09/18/24 15:45
Print Language: YEMENI
== END 2024-09-18 15:45 | disposition expired | DRG 57 ==
LOC: 2 NORTH 21:47
PROVIDERS: ADMITTING PHYSICIAN Hospitalist; ATTENDING PHYSICIAN Family Medicine; CONSULT PHYSICIAN Psychiatry & Neurology Clinical Neurophysiology; EMERGENCY PHYSICIAN Emergency Medicine; FAMILY PHYSICIAN Internal Medicine Geriatric Medicine
DX: G30.9 Alzheimer's disease, unspecified (principal); G93.40 Encephalopathy, unspecified; R57.9 Shock, unspecified; L03.90 Cellulitis, unspecified; F02.80 Dementia in other diseases classified elsewhere, unspecified severity, without behavioral disturbance, psychotic disturbance, mood disturbance, and anxiety; B35.4 Tinea corporis; E87.5 Hyperkalemia; I89.0 Lymphedema, not elsewhere classified; N18.2 Chronic kidney disease, stage 2 (mild); E11.22 Type 2 diabetes mellitus with diabetic chronic kidney disease; Z96.653 Presence of artificial knee joint, bilateral; Z96.643 Presence of artificial hip joint, bilateral; I12.9 Hypertensive chronic kidney disease with stage 1 through stage 4 chronic kidney disease, or unspecified chronic kidney disease; D63.1 Anemia in chronic kidney disease; M19.90 Unspecified osteoarthritis, unspecified site; Z66 Do not resuscitate; L89.151 Pressure ulcer of sacral region, stage 1; E66.9 Obesity, unspecified; Z68.26 Body mass index [BMI] 26.0-26.9, adult; B36.9 Superficial mycosis, unspecified
CPT/HCPCS: 70450; 70551; 71045; 80048; 80053; 81003; 82533; 82962; 83036; 83605; 83735; 84100; 84443; 85025; 85027; 87040; 87045; 87046; 87070; 87147; 87324; 87427; 87449; 93005; 93306; 96374; 99285